=== PATIENT | female | born 1975 ===

== ENCOUNTER → 2020-10-22 11:09 | Outpatient (BNVA) | payer OTHER, SELFPAY | PROVIDERS: Visit Provider Internal Medicine Gastroenterology | DX: Z13.89 Encounter for screening for other disorder (principal) | CPT/HCPCS: Q3014 ==

== ENCOUNTER 2021-01-29 10:45 | Outpatient (REF) | payer OTHER, SELFPAY ==
[2021-01-29 11:37] LABS: MANUAL DIFF FLAG NO
[2021-01-29 12:05] LABS: Basophils Absolute Auto 0.1 X10*3/uL (0.0-0.2); Basophils Percent Auto 0.9 % (0-2); Eosinophils Absolute Auto 0.1 X10*3/uL (0.0-0.4); Eosinophils Percent Auto 0.8 % (0-4); Hematocrit 38.3 % (37-47); Hemoglobin 12.5 g/dl (12.0-16.0); Imm Gran Abs Auto 0.04 X10*3/uL (0.00-0.03); Imm Gran Pct Auto 0.4 % (0.0-0.4); Lymphocytes Absolute Auto 2.6 X10*3/uL (1.2-4.9); Lymphocytes Percent Auto 28.2 % (20-40); Mean Corpuscular HGB Conc 32.6 g/dl (31.0-35.0); Mean Corpuscular Hemoglobin 27.9 pg (27.0-33.0); Mean Corpuscular Volume 85.5 fL (80-98); Mean Platelet Volume 11.6 fL (9.4-12.3); Monocytes Absolute Auto 0.6 X10*3/uL (0.1-1.2); Monocytes Percent Auto 6.1 % (2-11); Neutrophils Absolute Auto 5.9 X10*3/uL (2.0-8.3); Neutrophils Percent Auto 63.6 % (45-73); Platelet Count 403 X10*3/uL (160-400); Red Blood Count 4.48 X10*6/uL (4.20-5.50); Red Cell Distribution Width 14.6 % (11.0-16.0); White Blood Count 9.3 X10*3/uL (4.8-10.8)
[2021-01-29 12:25] LABS: Alanine Aminotransferase 24 U/L (0-31); Albumin Level 4.5 g/dL (3.5-5.0); Alkaline Phosphatase 124 U/L (39-117); Anion Gap 19 (12-20); Aspartate Amino Transferase 29 U/L (5-31); Bilirubin Total 0.6 mg/dL (0.0-1.0); Blood Urea Nitrogen 6 mg/dL (9-16); C Reactive Protein 0.67 mg/dL (< or = 0.50); Calcium 9.7 mg/dL (8.4-10.2); Carbon Dioxide 19 mmol/L (22-29); Chloride 106 mmol/L (96-108); Estimated Glomerular Filt Rate 55; Glucose Random 102 mg/dL (60-115); Potassium 3.6 mmol/L (3.3-5.1); Sodium 140 mmol/L (135-145); Total Protein 8.2 g/dL (6.5-8.0)
[2021-02-01 13:21] LABS: TS Negative Control Passed; TS Panel A 1; TS Panel B 0; TS Positive Control Passed; TSpotTB Negative (SeeBelow)
== END 2021-01-29 10:46 | disposition home or self-care (01) ==
LOC: HO.LAB 10:45
PROVIDERS: PCP Internal Medicine; Visit Provider Internal Medicine Gastroenterology
DX: K50.90 Crohn's disease, unspecified, without complications (principal)
CPT/HCPCS: 36415; 80053; 85025; 86140; 86481

== ENCOUNTER → 2021-03-12 09:03 | Outpatient (BNVA) | payer OTHER, SELFPAY | PROVIDERS: PCP Internal Medicine; Visit Provider Internal Medicine Gastroenterology | CPT/HCPCS: Q3014 ==

== ENCOUNTER 2021-04-30 09:04 | Outpatient (REF) | payer OTHER, SELFPAY | END 2021-04-30 09:05 | disposition home or self-care (01) | LOC: HO.CT 09:04 | PROVIDERS: PCP Internal Medicine; Visit Provider Internal Medicine Gastroenterology | DX: Z13.89 Encounter for screening for other disorder (principal) ==

== ENCOUNTER 2021-05-06 12:58 | Outpatient (REF) | payer OTHER, SELFPAY ==
--- NOTE | ~2021-05-06 | CT_ITS ---
EXAMINATION: CT ENTEROGRAPHY ABDOMEN AND PELVIS WITH CONTRAST CLINICAL INFORMATION: Periumbilical pain. COMPARISON: None TECHNIQUE: Study performed with oral VoLumen (1350 mL) and 480 mL of water to distend the abdomen. The patient was injected with 85 mL Omnipaque 350 intravenous contrast which was administered without adverse effect. Coronal and sagittal reformatted images were obtained at the technologist's workstation. This CT examination was performed using dose optimization techniques as appropriate, variously including the following: *Automated exposure control *Adjustment of mA and/or kV according to patient size (this includes techniques or standardized protocols for targeted exams where dose is matched to indication/reason for exam; i.e. extremities or head) *Use of iterative reconstruction technique DLP: 405 mGy-cm FINDINGS: GASTROINTESTINAL FINDINGS: Stomach: Well-distended and normal in appearance. Small intestine: Satisfactorily distended and normal in appearance. Large intestine: There is question of mild wall thickening of the colon, particularly the transverse colon and left colon. Large bowel is otherwise unremarkable. No perirectal changes demonstrated. The appendix is normal. Additional findings: No abnormal enhancement of the vasa recta or significant mesenteric or retroperitoneal lymphadenopathy is seen. No abdominal abscess or fistulous tract demonstrated. ABDOMINAL AND PELVIC CT FINDINGS: Liver, gallbladder, biliary tract: There are small calcifications in the central liver. The liver is otherwise normal appearing. The gallbladder has been removed. There is no biliary duct dilatation. Pancreas: Normal. Spleen: Normal. Adrenal glands and kidneys: The adrenal glands are normal. There is cortical thinning or scarring in the upper pole of the left kidney. The kidneys are otherwise normal. Ureters and bladder: Normal. Uterus and adnexa: Normal. Lymphovascular structures: Normal. Bones: Normal. Lung bases: Normal. CT/CT enterography IMPRESSION: Question mild colitis of the colon, particularly the transverse colon and left colon. Cortical thinning or scarring in the upper pole of the left kidney. Post cholecystectomy. Normal appendix.
[2021-05-06] MEDS: iohexoL 350 MG/ML 100 ML INFUS..BTL IV (15:38)
[2021-05-06] MEDS: Sorbitol/Mannit/Xanth Imaging 500 ML LIQUID 1500 ML PO (15:39)
== END 2021-05-06 12:59 | disposition home or self-care (01) ==
LOC: HO.US 12:58
PROVIDERS: Visit Provider Internal Medicine Gastroenterology
DX: R10.33 Periumbilical pain (principal)
CPT/HCPCS: 74177; Q9967

== ENCOUNTER → 2021-05-07 11:21 | Outpatient (BNVA) | payer OTHER, SELFPAY | PROVIDERS: PCP Internal Medicine; Visit Provider Internal Medicine Gastroenterology | DX: K50.90 Crohn's disease, unspecified, without complications (principal); R63.4 Abnormal weight loss | CPT/HCPCS: 99212 ==

== ENCOUNTER 2021-06-05 11:15 | Outpatient (REF) | payer OTHER, SELFPAY | END 2021-06-05 11:16 | disposition home or self-care (01) | LOC: HO.MDS 11:15 | PROVIDERS: PCP Internal Medicine; Visit Provider Internal Medicine Gastroenterology | DX: K50.90 Crohn's disease, unspecified, without complications (principal) | CPT/HCPCS: 96365; J3380 ==

== ENCOUNTER 2021-06-21 07:47 | Outpatient (REF) | payer OTHER, SELFPAY | END 2021-06-21 07:48 | disposition home or self-care (01) | LOC: HO.MDS 07:47 | PROVIDERS: PCP Internal Medicine; Visit Provider Thoracic Surgery (Cardiothoracic Vascular Surgery) | DX: K51.50 Left sided colitis without complications (principal) | CPT/HCPCS: 96365; J3380 ==

== ENCOUNTER → 2021-07-09 13:06 | Outpatient (BNVA) | payer OTHER, SELFPAY | PROVIDERS: PCP Internal Medicine; Visit Provider Internal Medicine Gastroenterology | DX: K50.90 Crohn's disease, unspecified, without complications (principal) | CPT/HCPCS: Q3014 ==

== ENCOUNTER → 2021-10-11 11:27 | Outpatient (BNVA) | payer OTHER, SELFPAY | PROVIDERS: PCP Internal Medicine; Visit Provider Internal Medicine Gastroenterology | CPT/HCPCS: Q3014 ==

== ENCOUNTER 2022-06-17 12:28 | Outpatient (REF) | payer OTHER, SELFPAY ==
[2022-06-17 13:07] LABS: MANUAL DIFF FLAG NO
[2022-06-17 13:31] LABS: Basophils Absolute Auto 0.1 X10*3/uL (0.0-0.2); Basophils Percent Auto 1.1 % (0-2); Eosinophils Absolute Auto 0.1 X10*3/uL (0.0-0.4); Eosinophils Percent Auto 2.2 % (0-4); Hematocrit 29.6 % (37.0-47.0); Hemoglobin 9.1 g/dl (12.0-16.0); Imm Gran Abs Auto 0.01 X10*3/uL (0.00-0.03); Imm Gran Pct Auto 0.2 % (0.0-0.4); Lymphocytes Percent Auto 44.4 % (20-40); Mean Corpuscular HGB Conc 30.7 g/dl (31.0-35.0); Mean Corpuscular Hemoglobin 24.5 pg (27.0-33.0); Mean Corpuscular Volume 79.6 fL (80.0-98.0); Mean Platelet Volume 11.5 fL (9.4-12.3); Monocytes Absolute Auto 0.3 X10*3/uL (0.1-1.2); Monocytes Percent Auto 7.1 % (2-11); Platelet Count 309 X10*3/uL (160-400); Red Blood Count 3.72 X10*6/uL (4.20-5.50); Red Cell Distribution Width 16.1 % (11.0-16.0); White Blood Count 4.5 X10*3/uL (4.8-10.8)
[2022-06-17 13:37] LABS: Appearance Urine HAZY; Color Urine YELLOW; Glucose Urine UA NEG (NEG); Leukocyte Esterase Urine NEG (NEG); Nitrite Urine NEG (NEG); PH 6.5 (5.0-8.0); Specific Gravity - Urine 1.015 (1.005-1.025); UACC Culture Trigger NO; Urine Blood TRACE (NEG); Urine Ketones NEG (NEG); Urine Protein NEG (NEG-TRACE)
[2022-06-17 13:45] LABS: INTERNATIONAL NORM RATIO 1.6 (0.9-1.1); Prothrombin Time 18.8 SEC (10.0-13.1)
[2022-06-17 14:09] LABS: Alanine Aminotransferase 8 U/L (0-31); Albumin Level 3.8 g/dL (3.5-5.0); Alkaline Phosphatase 109 U/L (39-117); Anion Gap 11 (12-20); Aspartate Amino Transferase 12 U/L (5-31); Bilirubin Total 0.2 mg/dL (0.0-1.0); Blood Urea Nitrogen 9 mg/dL (9-16); C Reactive Protein 0.18 mg/dL (< or = 0.50); Calcium 8.5 mg/dL (8.4-10.2); Carbon Dioxide 22 mmol/L (22-29); Chloride 108 mmol/L (96-108); Estimated Glomerular Filt Rate 57; Glucose Random 117 mg/dL (60-115); Iron 23 mcg/dL (30-160); Percent Iron Saturation 6 % (15-50); Potassium 3.8 mmol/L (3.3-5.1); Sodium 137 mmol/L (135-145); Total Iron Binding Capacity 370 mcg/dL (228-428); Total Protein 6.6 g/dL (6.5-8.0); Unsaturated Iron Binding 347 ug/dL
[2022-06-17 14:15] LABS: Squamous Epithelial Cell Urine 3+ /LPF; WBC Urine 0 /HPF (0-4)
[2022-06-17 14:15] LABS: Ferritin 4 ng/mL (10-250)
[2022-06-17 14:33] LABS: Folate 7.1 ng/mL (> or = 4.0); Vitamin B12 188 pg/mL (200-900)
[2022-06-19 22:32] LABS: TS Negative Control Passed; TS Panel A 0; TS Panel B 0; TS Positive Control Passed; TSpotTB Negative (Negative)
[2022-06-20 17:07] LABS: Vitamin C 0.1 mg/dL (0.3-2.7)
[2022-06-22 17:28] LABS: Vitamin A 33 mcg/dL (38-98)
== END 2022-06-17 12:29 | disposition home or self-care (01) ==
LOC: HO.LAB 12:28
PROVIDERS: PCP Internal Medicine; Visit Provider Internal Medicine Gastroenterology
DX: Z11.1 Encounter for screening for respiratory tuberculosis (principal); K50.90 Crohn's disease, unspecified, without complications; K75.81 Nonalcoholic steatohepatitis (NASH)
CPT/HCPCS: 36415; 80053; 81001; 82180; 82607; 82728; 82746; 83540; 84590; 85025; 85610; 86140; 86481

== ENCOUNTER → 2022-06-20 12:25 | Outpatient (BNVA) | payer OTHER, SELFPAY | PROVIDERS: PCP Internal Medicine; Visit Provider Internal Medicine Gastroenterology | DX: K50.90 Crohn's disease, unspecified, without complications (principal); D64.9 Anemia, unspecified | CPT/HCPCS: 99212 ==

== ENCOUNTER 2022-07-31 08:52 | Outpatient (REF) | payer OTHER, SELFPAY ==
--- NOTE | ~2022-07-31 | MR_ITS ---
EXAMINATION: MRI ABDOMEN AND PELVIS WITH AND WITHOUT CONTRAST: MR ENTEROGRAPHY CLINICAL INFORMATION: Crohn's disease. Patient states abdominal pain and symptoms for 3-4 months. COMPARISON: CT 05/06/2021. MRI 03/01/2020 TECHNIQUE: 1350 mL Breeza PO contrast prior to scanning. Then, multiple routine MRI sequences through the abdomen and pelvis were obtained on a high-field 1.5 Ivy MRI before and after the uneventful administration of 8.5 mL of Gadavist gadolinium-based IV contrast. FINDINGS: STOMACH: Contrast. No abnormal wall thickening or hyperenhancement. SMALL BOWEL: There is adequate distention of the small bowel. No abnormal dilation. No areas of fixed narrowing or stricture seen. No abnormal wall thickening or hyperenhancement present. No prominence of the vasa recta. No inflammatory changes in the mesentery. No evidence of interloop abscess or fistula. COLON: Precontrast T1 bright stool seen throughout the colon. This limits evaluation for subtle mucosal abnormalities but there is no colonic wall thickening or mucosal hyperenhancement to suggest colitis. LUNG BASES: No pleural effusion. No pericardial effusion. Normal heart size. LIVER: Liver enhances normally. No focal lesion seen. Hepatic and portal veins enhance normally. GALL BLADDER AND BILIARY TREE: Gallbladder not seen presumably surgically absent. No biliary ductal dilatation. SPLEEN: Normal. Normal size. No focal lesion. PANCREAS: Normal. ADRENAL GLANDS: Normal. No adrenal mass. KIDNEYS AND URETERS: There is some atrophy and cortical thinning of the medial aspect of the upper pole of the left kidney similar to prior studies. Otherwise symmetric bilateral renal enhancement. No hydronephrosis or mass. LYMPHOVASCULAR STRUCTURES: Normal caliber aorta. IVC patent. No pathologically enlarged abdominal or retroperitoneal lymphadenopathy by CT size criteria PELVIS: Anteverted uterus. Normal thickness of the endometrial stripe. No leiomyomata seen. Cervix normal in appearance. Normal-appearing ovaries bilaterally. No adnexal mass. OSSEOUS STRUCTURES: Mild lumbar rotoscoliosis and multilevel degenerative changes but no acute or suspicious osseous abnormality. MR/MR abdomen wo/w con IMPRESSION: No abnormal bowel wall thickening or enhancement seen to suggest active inflammatory bowel disease.
== END 2022-07-31 08:53 | disposition home or self-care (01) ==
LOC: HO.MRI 08:52
PROVIDERS: Visit Provider Internal Medicine Gastroenterology
DX: K50.90 Crohn's disease, unspecified, without complications (principal)
CPT/HCPCS: 72197; 74183; A9585

== ENCOUNTER 2023-01-01 18:37 | Emergency (ER) | payer OTHER, SELFPAY ==
--- NOTE | ~2023-01-01 | CT_ITS ---
EXAMINATION: CT head/brain wo IV con CLINICAL INFORMATION: dizziness, headache, weak, hx CVA, on Xarelto COMPARISON: None. TECHNIQUE: Contiguous axial imaging was performed from the skull base to vertex without intravenous contrast. Sagittal and coronal reformatted images were obtained. This CT examination was performed using dose optimization techniques as appropriate, variously including the following: * Automated exposure control * Adjustment of mA and/or kV according to patient size (this includes techniques or standardized protocols for targeted exams where dose is matched to indication/reason for exam; i.e. extremities or head) Use of iterative reconstruction technique DLP: 644.53 mGy-cm mGy-cm FINDINGS: The ventricles and sulci are normal in size and configuration without significant volume loss or hydrocephalus. Age indeterminate though chronic appearing wedge shaped cortical/subcortical infarct in the right parietotemporal lobe. No acute intracranial hemorrhage or extra-axial fluid collection. No mass lesion, significant mass effect, or herniation pattern. The orbits are grossly normal. Mucous retention cyst in the left maxillary sinus and trace mucosal disease in the right maxillary sinus. Osseous structures are intact. 5 mm benign calcified lesion within the high right frontal scalp, likely a sebaceous versus trichilemmal cyst. CT/CT head/brain wo IV con IMPRESSION: Age indeterminate though chronic appearing wedge shaped cortical/subcortical infarct in the right parietotemporal lobe. No calvarial fracture or intracranial hemorrhage.
--- NOTE | ~2023-01-01 | XR_ITS ---
EXAMINATION: XR CHEST CLINICAL INFORMATION: Chest pain COMPARISON: Previous chest x-ray March 2019 TECHNIQUE: 2 views of the chest were obtained. FINDINGS: No significant abnormality is noted involving the heart, lungs, mediastinum, bony thorax or soft tissues. XR/XR chest 2V IMPRESSION: Unremarkable examination.
--- NOTE | 2023-01-01 18:40 | ECG_ITS ---
Test Reason : CHEST PAIN Blood Pressure : / mmHG Vent. Rate : 088 BPM Atrial Rate : 088 BPM P-R Int : 160 ms QRS Dur : 082 ms QT Int : 390 ms P-R-T Axes : 035 027 031 degrees QTc Int : 471 ms Normal sinus rhythm Normal ECG When compared with ECG of 10-MAR-2019 11:14, No significant change was found Referred By: Johanny Emery Electronically Signed By:RADHA GOMEZ
--- NOTE | 2023-01-01 18:55 | ED_ITS ---
HPI - Chest Pain General Chief Complaint: Neuro Symptoms/Deficit <Johanny Emery CNP - Last Filed: 01/01/23 20:11> Stated Complaint: chest pain,blurred vision right sided weakness <Johanny Emery CNP - Last Filed: 01/01/23 20:11> Time Seen by Provider: 01/01/23 21:06 <Johanny Emery CNP - Last Filed: 01/01/23 20:11> Source: patient <Alex Branham MD - Last Filed: 01/01/23 22:41> Mode of arrival: ambulatory <Alex Branham MD - Last Filed: 01/01/23 22:41> Limitations: no limitations <Alex Branham MD - Last Filed: 01/01/23 22:41> History of Present Illness HPI narrative: Patient is a 47-year-old female with reported past medical history of crohns, anemia, pulmonary embolism, CVA, she is currently anticoagulated with Xarelto. Reports since 1429 she is experiencing left anterior Chest pain, intermittent and sharp, present currently, left arm pain shoulder to fingers, dizziness; room spinning sensation, posterior headache, generalized weakness multiple complaints at this time patient is comfortable patient was triaged and labs were done prior to my evaluation head CT scan was negative for acute tropon in and EKG were normal pain is sharp in character increases in taking deep breaths and movements. <Alex Branham MD - Last Filed: 01/01/23 22:41> Related Data Home Medications: Home Medications Medication Instructions Recorded Confirmed amlodipine 5 mg tablet 5 mg PO DAILY 03/12/21 aspirin 81 mg tablet,delayed 81 mg PO DAILY 03/12/21 09/12/22 release atorvastatin 40 mg tablet 40 mg PO BEDTIME 03/12/21 09/12/22 bupropion HCl 100 mg tablet,12 hr 100 mg PO QAM 03/12/21 09/12/22 sustained-release clonazepam 1 mg tablet 1 mg PO BEDTIME PRN Anxiety 03/12/21 09/12/22 lamotrigine 150 mg tablet 150 mg PO DAILY 03/12/21 09/12/22 lamotrigine 200 mg tablet 200 mg PO DAILY 03/12/21 09/12/22 loperamide 2 mg capsule 0 mg PO 03/12/21 tizanidine 4 mg tablet 0 mg PO 03/12/21 gabapentin 600 mg tablet 600 mg PO TID 05/07/21 09/12/22 rivaroxaban 20 mg tablet 20 mg PO BEDTIME 05/07/21 09/12/22 topiramate 50 mg tablet 50 mg PO DAILY 05/07/21 09/12/22 duloxetine 30 mg capsule,delayed 30 mg PO BID 10/11/21 release cariprazine 4.5 mg capsule 4.5 mg PO DAILY 06/20/22 09/12/22 (Vraylar) duloxetine 60 mg capsule,delayed mg PO 06/20/22 release ferrous sulfate 325 mg (65 mg 325 mg PO DAILY 06/20/22 09/12/22 iron) tablet,delayed release ubrogepant 100 mg tablet (Ubrelvy) 0 mg PO 06/20/22 Previous Rx's Medication Instructions Recorded dicyclomine 10 mg capsule 10 mg PO TID 30 days #90 caps 03/08/21 ondansetron 4 mg disintegrating 4 mg PO Q8H PRN nausea and 04/05/21 tablet vomiting #30 tabs budesonide 3 mg 9 mg PO DAILY #90 ea 05/07/21 capsule,delayed,extended release cholestyramine-aspartame 4 gram 1 ea PO Q8H #60 ea 05/22/21 oral powder for susp in a packet (Cholestyramine Light) polyethylene glycol 3350 17 238 g PO ONCE #238 grams 06/20/22 gram/dose oral powder (Miralax) omeprazole 40 mg capsule,delayed 40 mg PO DAILY #30 caps 11/12/22 release tramadol 50 mg tablet 50 mg PO Q6H PRN pain #20 tabs 01/01/23 <Johanny Emery CNP - Last Filed: 01/01/23 20:11> Allergies/Adverse Reactions: Allergies Allergy/AdvReac Type Severity Reaction Status Date / Time apixaban [From Eliquis] Allergy Itching Verified 09/12/22 15:50 <Johanny Emery CNP - Last Filed: 01/01/23 20:11> Review of Systems Review of Systems: Yes all other systems are reviewed and are negative <Alex Branham MD - Last Filed: 01/01/23 22:41> [facility] Past Medical History Medical History: Medical History Anxiety Bipolar disorder Chronic depression Fibromyalgia H/O blood clots H/O stroke within last year HTN (hypertension) IBS (irritable bowel syndrome) LOC (loss of consciousness) Migraine On anticoagulant therapy KAYODE (obstructive sleep apnea) Vitamin D deficiency <Johanny Emery CNP - Last Filed: 01/01/23 20:11> Surgical History: Surgical History History of History of colonoscopy Hx of cholecystectomy Hx of endoscopy Hx of tubal ligation <Johanny Emery CNP - Last Filed: 01/01/23 20:11> Family History Family History: Family History Father Hx of type 1 diabetes mellitus History of high cholesterol Mother Family history of high blood pressure <Johanny Emery CNP - Last Filed: 01/01/23 20:11> Social History Social History: Social History Household Members: None Alcohol intake: never Advance Directives: No Advance Directives Information Provided: No Current occupational status: disabled <Johanny Emery CNP - Last Filed: 01/01/23 20:11> Physical Exam Vital Signs: Vital Signs: Last Vital Signs Temp 98 F 01/01/23 18:56 Pulse 85 01/01/23 18:56 Resp 16 01/01/23 18:56 BP 142/86 H 01/01/23 18:56 Pulse Ox 100 01/01/23 18:56 O2 Del Method 01/01/23 18:56 BMI result Body Mass Index 40.6 <Johanny Emery CNP - Last Filed: 01/01/23 20:11> Vital Signs: Last Vital Signs Temp 98 F 01/01/23 18:56 Pulse 85 01/01/23 18:56 Resp 16 01/01/23 18:56 BP 142/86 H 01/01/23 18:56 Pulse Ox 100 01/01/23 18:56 O2 Del Method 01/01/23 18:56 BMI result Body Mass Index 40.6 <Alex Branham MD - Last Filed: 01/01/23 22:41> Appearance: Alert. Oriented X3. No acute distress. Eyes: PERRLA, No Nystagmus ENT: Pharynx normal. Oral Mucosa moist Neck: Normal inspection. Neck supple. CVS: Normal heart rate and rhythm. Pulses normal. Chest wall tenderness+ Respiratory: No respiratory distress. Equal air entry bilateral, no wheezing/rales/rhonchi Abdomen: Soft and nontender. Bowel sounds are present, no mass palpable, no CVA tenderness Skin: Skin warm and dry. Normal skin color. Normal skin turgor. back: Diffuse tenderness in the upper back muscles Extremities: No lower extremity edema. No calf tenderness Neuro: Oriented X 3. No motor deficit. No sensory deficit.No cerebellar signs , cranial nerves II-XII intact <Alex Branham MD - Last Filed: 01/01/23 22:41> Course Course Course Narrative: This is an RME: Additional HPI, ROS, PE not included below will be deferred to primary provider. Patient is a 47-year-old female with reported past medical history of crohns, anemia, pulmonary embolism, CVA, she is curr ently anticoagulated with Xarelto. Reports since 0 she is experiencing left anterior Chest pain, intermittent and sharp, present currently, left arm pain shoulder to fingers, dizziness; room spinning sensation, posterior headache, generalized weakness. Pe: No focal neurological deficits, sitting in wheelchair. Plan: labs, EKG, CXR CT head w/o contrast, viral testing 20:10 review of findings, CT revealing age indeterminate though chronic appearing wedge-shaped cortical/subcortical infarct in the right parietal temporal lobe. I spoke with charge nurse, patient to be brought back to main ED for further evaluation/treatment. ED attending, Dr. Campuzano made aware of patient and findings <Johanny Emery CNP - Last Filed: 01/01/23 20:11> Medications Administered Discontinued Medications Generic Name Dose Route Start Last Admin Trade Name Freq PRN Reason Stop Dose Admin Tramadol HCl 50 mg 01/01/23 21:23 01/01/23 21:40 Tramadol Hcl 50 Mg Tablet PO 01/01/23 21:24 50 mg ONCE ONE Administration <Johanny Emery CNP - Last Filed: 01/01/23 20:11> Medications Administered Discontinued Medications Generic Name Dose Route Start Last Admin Trade Name Radha PRN Reason Stop Dose Admin Tramadol HCl 50 mg 01/01/23 21:23 01/01/23 21:40 Tramadol Hcl 50 Mg Tablet PO 01/01/23 21:24 50 mg ONCE ONE Administration <Alex Branham MD - Last Filed: 01/01/23 22:41> Medical Decision Making Medical Decision Making [facility] Narrative: Patient with history of fibromyalgia came with atypical chest pain 2 sets of troponin negative normal EKG discharge patient home on tramadol <Alex Branham MD - Last Filed: 01/01/23 22:41> Lab Data [facility] Lab Attestation statement: I reviewed the patient's lab results. <Alex Branham MD - Last Filed: 01/01/23 22:41> Result Diagrams: 01/01/23 19:09 01/01/23 19:09 <Johanny Emery CNP - Last Filed: 01/01/23 20:11> Labs: Lab Results 01/01/23 01/01/23 01/01/23 Range/Units 19:09 19:09 19:09 WBC 5.8 (4.8-10.8) X10*3/uL RBC 3.99 L (4.20-5.50) X10*6/uL Hgb 8.9 L (12.0-16.0) g/dl Hct 29.6 L (37.0-47.0) % MCV 74.2 L (80.0-98.0) fL MCH 22.3 L (27.0-33.0) pg MCHC 30.1 L (31.0-35.0) g/dl RDW 17.4 H (11.0-16.0) % Plt Count 316 (160-400) X10*3/uL MPV 10.9 (9.4-12.3) fL Immature Gran % (Auto) 0.2 (0.0-0.4) % Neut % (Auto) 39.9 L (45-73) % Lymph % (Auto) 48.9 H (20-40) % [place] % (Auto) 7.3 (2-11) % Eos % (Auto) 2.3 (0-4) % Baso % (Auto) 1.4 (0-2) % Lymph # (Auto) 2.8 (1.2-4.9) X10*3/uL [place] # (Auto) 0.4 (0.1-1.2) X10*3/uL Eos # (Auto) 0.1 (0.0-0.4) X10*3/uL Baso # (Auto) 0.1 (0.0-0.2) X10*3/uL Abs Immat Gran (auto) 0.01 (0.00-0.03) X10*3/uL Absolute Neuts (auto) 2.3 (2.0-8.3) x10*3/uL Absolute Nucleated RBC 0.000 (0.0-0.012) X10*3/uL Nucleated RBC % (auto) 0.0 (0.0-0.2) /100WBC PT 11.3 (10.0-13.1) SEC INR 1.0 (0.9-1.1) D-Dimer High Sensitivty 253 NG/ML Sodium 140 (135-145) mmol/L Potassium 4.2 (3.3-5.1) mmol/L Chloride 109 H (96-108) mmol/L Carbon Dioxide 25 (22-29) mmol/L Anion Gap 10 L (12-20) BUN 15 (9-16) mg/dL Creatinine 0.93 (0.5-1.4) mg/dL Estim Creat Clear Calc 72.8 Estimated GFR > 60 Random Glucose 104 (60-115) mg/dL Calcium 9.2 D (8.4-10.2) mg/dL Magnesium 1.9 (1.6-2.6) mg/dL Total Bilirubin 0.2 (0.0-1.0) mg/dL AST 14 (5-31) U/L ALT 13 (0-31) U/L Alkaline Phosphatase 100 (39-117) U/L Troponin I High Sens (<3.5-17.0) ng/L Total Protein 6.8 (6.5-8.0) g/dL Albumin 3.8 (3.5-5.0) g/dL COVID-19 ([place]) (Negative) COVID-19 Clin Com Influenza Type A ([place]) (Negative) Influenza Type B ([place]) (Negative) Influenza A & B Note 01/01/23 01/01/23 01/01/23 Range/Units 19:09 19:09 19:09 WBC (4.8-10.8) X10*3/uL RBC (4.20-5.50) X10*6/uL Hgb (12.0-16.0) g/dl Hct (37.0-47.0) % MCV (80.0-98.0) fL MCH (27.0-33.0) pg MCHC (31.0-35.0) g/dl RDW (11.0-16.0) % Plt Count (160-400) X10*3/uL MPV (9.4-12.3) fL Immature Gran % (Auto) (0.0-0.4) % Neut % (Auto) (45-73) % Lymph % (Auto) (20-40) % [place] % (Auto) (2-11) % Eos % (Auto) (0-4) % Baso % (Auto) (0-2) % Lymph # (Auto) (1.2-4.9) X10*3/uL [place] # (Auto) (0.1-1.2) X10*3/uL Eos # (Auto) (0.0-0.4) X10*3/uL Baso # (Auto) (0.0-0.2) X10*3/uL Abs Immat Gran (auto) (0.00-0.03) X10*3/uL Absolute Neuts (auto) (2.0-8.3) x10*3/uL Absolute Nucleated RBC (0.0-0.012) X10*3/uL Nucleated RBC % (auto) (0.0-0.2) /100WBC PT (10.0-13.1) SEC INR (0.9-1.1) D-Dimer High Sensitivty NG/ML Sodium (135-145) mmol/L Potassium (3.3-5.1) mmol/L Chloride (96-108) mmol/L Carbon Dioxide (22-29) mmol/L Anion Gap (12-20) BUN (9-16) mg/dL Creatinine (0.5-1.4) mg/dL Estim Creat Clear Calc Estimated GFR Random Glucose (60-115) mg/dL Calcium (8.4-10.2) mg/dL Magnesium (1.6-2.6) mg/dL Total Bilirubin (0.0-1.0) mg/dL AST (5-31) U/L ALT (0-31) U/L Alkaline Phosphatase (39-117) U/L Troponin I High Sens < 3.5 (<3.5-17.0) ng/L Total Protein (6.5-8.0) g/dL Albumin (3.5-5.0) g/dL COVID-19 ([place]) Negative (Negative) COVID-19 Clin Com See Note Influenza Type A ([place]) Negative (Negative) Influenza Type B ([place]) Negative (Negative) Influenza A & B Note See Note 01/01/23 Range/Units 21:47 WBC (4.8-10.8) X10*3/uL RBC (4.20-5.50) X10*6/uL Hgb (12.0-16.0) g/dl Hct (37.0-47.0) % MCV (80.0-98.0) fL MCH (27.0-33.0) pg MCHC (31.0-35.0) g/dl RDW (11.0-16.0) % Plt Count (160-400) X10*3/uL MPV (9.4-12.3) fL Immature Gran % (Auto) (0.0-0.4) % Neut % (Auto) (45-73) % Lymph % (Auto) (20-40) % [place] % (Auto) (2-11) % Eos % (Auto) (0-4) % Baso % (Auto) (0-2) % Lymph # (Auto) (1.2-4.9) X10*3/uL [place] # (Auto) (0.1-1.2) X10*3/uL Eos # (Auto) (0.0-0.4) X10*3/uL Baso # (Auto) (0.0-0.2) X10*3/uL Abs Immat Gran (auto) (0.00-0.03) X10*3/uL Absolute Neuts (auto) (2.0-8.3) x10*3/uL Absolute Nucleated RBC (0.0-0.012) X10*3/uL Nucleated RBC % (auto) (0.0-0.2) /100WBC PT (10.0-13.1) SEC INR (0.9-1.1) D-Dimer High Sensitivty NG/ML Sodium (135-145) mmol/L Potassium (3.3-5.1) mmol/L Chloride (96-108) mmol/L Carbon Dioxide (22-29) mmol/L Anion Gap (12-20) BUN (9-16) mg/dL Creatinine (0.5-1.4) mg/dL Estim Creat Clear Calc Estimated GFR Random Glucose (60-115) mg/dL Calcium (8.4-10.2) mg/dL Magnesium (1.6-2.6) mg/dL Total Bilirubin (0.0-1.0) mg/dL AST (5-31) U/L ALT (0-31) U/L Alkaline Phosphatase (39-117) U/L Troponin I High Sens < 3.5 (<3.5-17.0) ng/L Total Protein (6.5-8.0) g/dL Albumin (3.5-5.0) g/dL COVID-19 ([place]) (Negative) COVID-19 Clin Com Influenza Type A ([place]) (Negative) Influenza Type B ([place]) (Negative) Influenza A & B Note <Johanny Emery CNP - Last Filed: 01/01/23 20:11> Lab Results 01/01/23 01/01/23 01/01/23 Range/Units 19:09 19:09 19:09 WBC 5.8 (4.8-10.8) X10*3/uL RBC 3.99 L (4.20-5.50) X10*6/uL Hgb 8.9 L (12.0-16.0) g/dl Hct 29.6 L (37.0-47.0) % MCV 74.2 L (80.0-98.0) fL MCH 22.3 L (27.0-33.0) pg MCHC 30.1 L (31.0-35.0) g/dl RDW 17.4 H (11.0-16.0) % Plt Count 316 (160-400) X10*3/uL MPV 10.9 (9.4-12.3) fL Immature Gran % (Auto) 0.2 (0.0-0.4) % Neut % (Auto) 39.9 L (45-73) % Lymph % (Auto) 48.9 H (20-40) % [place] % (Auto) 7.3 (2-11) % Eos % (Auto) 2.3 (0-4) % Baso % (Auto) 1.4 (0-2) % Lymph # (Auto) 2.8 (1.2-4.9) X10*3/uL [place] # (Auto) 0.4 (0.1-1.2) X10*3/uL Eos # (Auto) 0.1 (0.0-0.4) X10*3/uL Baso # (Auto) 0.1 (0.0-0.2) X10*3/uL Abs Immat Gran (auto) 0.01 (0.00-0.03) X10*3/uL Absolute Neuts (auto) 2.3 (2.0-8.3) x10*3/uL Absolute Nucleated RBC 0.000 (0.0-0.012) X10*3/uL Nucleated RBC % (auto) 0.0 (0.0-0.2) /100WBC PT 11.3 (10.0-13.1) SEC INR 1.0 (0.9-1.1) D-Dimer High Sensitivty 253 NG/ML Sodium 140 (135-145) mmol/L Potassium 4.2 (3.3-5.1) mmol/L Chloride 109 H (96-108) mmol/L Carbon Dioxide 25 (22-29) mmol/L Anion Gap 10 L (12-20) BUN 15 (9-16) mg/dL Creatinine 0.93 (0.5-1.4) mg/dL Estim Creat Clear Calc 72.8 Estimated GFR > 60 Random Glucose 104 (60-115) mg/dL Calcium 9.2 D (8.4-10.2) mg/dL Magnesium 1.9 (1.6-2.6) mg/dL Total Bilirubin 0.2 (0.0-1.0) mg/dL AST 14 (5-31) U/L ALT 13 (0-31) U/L Alkaline Phosphatase 100 (39-117) U/L Troponin I High Sens (<3.5-17.0) ng/L Total Protein 6.8 (6.5-8.0) g/dL Albumin 3.8 (3.5-5.0) g/dL COVID-19 ([place]) (Negative) COVID-19 Clin Com Influenza Type A ([place]) (Negative) Influenza Type B ([place]) (Negative) Influenza A & B Note 01/01/23 01/01/23 01/01/23 Range/Units 19:09 19:09 19:09 WBC (4.8-10.8) X10*3/uL RBC (4.20-5.50) X10*6/uL Hgb (12.0-16.0) g/dl Hct (37.0-47.0) % MCV (80.0-98.0) fL MCH (27.0-33.0) pg MCHC (31.0-35.0) g/dl RDW (11.0-16.0) % Plt Count (160-400) X10*3/uL MPV (9.4-12.3) fL Immature Gran % (Auto) (0.0-0.4) % Neut % (Auto) (45-73) % Lymph % (Auto) (20-40) % [place] % (Auto) (2-11) % Eos % (Auto) (0-4) % Baso % (Auto) (0-2) % Lymph # (Auto) (1.2-4.9) X10*3/uL [place] # (Auto) (0.1-1.2) X10*3/uL Eos # (Auto) (0.0-0.4) X10*3/uL Baso # (Auto) (0.0-0.2) X10*3/uL Abs Immat Gran (auto) (0.00-0.03) X10*3/uL Absolute Neuts (auto) (2.0-8.3) x10*3/uL Absolute Nucleated RBC (0.0-0.012) X10*3/uL Nucleated RBC % (auto) (0.0-0.2) /100WBC PT (10.0-13.1) SEC INR (0.9-1.1) D-Dimer High Sensitivty NG/ML Sodium (135-145) mmol/L Potassium (3.3-5.1) mmol/L Chloride (96-108) mmol/L Carbon Dioxide (22-29) mmol/L Anion Gap (12-20) BUN (9-16) mg/dL Creatinine (0.5-1.4) mg/dL Estim Creat Clear Calc Estimated GFR Random Glucose (60-115) mg/dL Calcium (8.4-10.2) mg/dL Magnesium (1.6-2.6) mg/dL Total Bilirubin (0.0-1.0) mg/dL AST (5-31) U/L ALT (0-31) U/L Alkaline Phosphatase (39-117) U/L Troponin I High Sens < 3.5 (<3.5-17.0) ng/L Total Protein (6.5-8.0) g/dL Albumin (3.5-5.0) g/dL COVID-19 ([place]) Negative (Negative) COVID-19 Clin Com See Note Influenza Type A ([place]) Negative (Negative) Influenza Type B ([place]) Negative (Negative) Influenza A & B Note See Note 01/01/23 Range/Units 21:47 WBC (4.8-10.8) X10*3/uL RBC (4.20-5.50) X10*6/uL Hgb (12.0-16.0) g/dl Hct (37.0-47.0) % MCV (80.0-98.0) fL MCH (27.0-33.0) pg MCHC (31.0-35.0) g/dl RDW (11.0-16.0) % Plt Count (160-400) X10*3/uL MPV (9.4-12.3) fL Immature Gran % (Auto) (0.0-0.4) % Neut % (Auto) (45-73) % Lymph % (Auto) (20-40) % [place] % (Auto) (2-11) % Eos % (Auto) (0-4) % Baso % (Auto) (0-2) % Lymph # (Auto) (1.2-4.9) X10*3/uL [place] # (Auto) (0.1-1.2) X10*3/uL Eos # (Auto) (0.0-0.4) X10*3/uL Baso # (Auto) (0.0-0.2) X10*3/uL Abs Immat Gran (auto) (0.00-0.03) X10*3/uL Absolute Neuts (auto) (2.0-8.3) x10*3/uL Absolute Nucleated RBC (0.0-0.012) X10*3/uL Nucleated RBC % (auto) (0.0-0.2) /100WBC PT (10.0-13.1) SEC INR (0.9-1.1) D-Dimer High Sensitivty NG/ML Sodium (135-145) mmol/L Potassium (3.3-5.1) mmol/L Chloride (96-108) mmol/L Carbon Dioxide (22-29) mmol/L Anion Gap (12-20) BUN (9-16) mg/dL Creatinine (0.5-1.4) mg/dL Estim Creat Clear Calc Estimated GFR Random Glucose (60-115) mg/dL Calcium (8.4-10.2) mg/dL Magnesium (1.6-2.6) mg/dL Total Bilirubin (0.0-1.0) mg/dL AST (5-31) U/L ALT (0-31) U/L Alkaline Phosphatase (39-117) U/L Troponin I High Sens < 3.5 (<3.5-17.0) ng/L Total Protein (6.5-8.0) g/dL Albumin (3.5-5.0) g/dL COVID-19 ([place]) (Negative) COVID-19 Clin Com Influenza Type A ([place]) (Negative) Influenza Type B ([place]) (Negative) Influenza A & B Note <Alex Branham MD - Last Filed: 01/01/23 22:41> Independent Interpretation I performed an independent interpretation of an: EKG <Alex Branham MD - Last Filed: 01/01/23 22:41> Interpretation: Normal sinus rhythm heart rate 88 normal interval normal axis no acute ST changes no acute ischemia <Alex Branham MD - Last Filed: 01/01/23 22:41> Discharge Plan Discharge Clinical Impression: Chest pain, Fibromyalgia <Johanny Emery CNP - Last Filed: 01/01/23 20:11> Patient Disposition: Home, Self-Care <Johanny Emery CNP - Last Filed: 01/01/23 20:11> Instructions: Chest Pain (ED), Fibromyalgia (ED) <Johanny Emery CNP - Last Filed: 01/01/23 20:11> Additional Instructions: chest pain does not seem like coming from the heart, your blood test cardiogram chest x-ray normal Take tramadol for pain Follow-up with your it security consulting director/PCP <Johanny Emery CNP - Last Filed: 01/01/23 20:11> Prescriptions: New tramadol 50 mg tablet 50 mg PO Q6H PRN (Reason: pain) Qty: 20 0RF No Action dicyclomine 10 mg capsule 10 mg PO TID 30 Days Qty: 90 4RF ondansetron 4 mg tablet,disintegrating 4 mg PO Q8H PRN (Reason: nausea and vomiting) Qty: 30 1RF cholestyramine-aspartame [Cholestyramine Light] 4 gram powder in packet 1 ea PO Q8H Qty: 60 1RF omeprazole 40 mg capsule,delayed release(DR/EC) 40 mg PO DAILY Qty: 30 3RF Xarelto 20 mg tablet 20 mg PO BEDTIME gabapentin 600 mg tablet 600 mg PO TID topiramate 50 mg tablet 50 mg PO DAILY budesonide 3 mg capsule,delayed,extend.release 9 mg PO DAILY Qty: 90 1RF amlodipine 5 mg tablet 5 mg PO DAILY bupropion HCl 100 mg tablet sustained-release 12 hr 100 mg PO QAM tizanidine 4 mg tablet 0 mg PO atorvastatin 40 mg tablet 40 mg PO BEDTIME loperamide 2 mg capsule 0 mg PO lamotrigine 200 mg tablet 200 mg PO DAILY lamotrigine 150 mg tablet 150 mg PO DAILY clonazepam 1 mg tablet 1 mg PO BEDTIME PRN (Reason: Anxiety) aspirin 81 mg tablet,delayed release (DR/EC) 81 mg PO DAILY duloxetine 30 mg capsule,delayed release(DR/EC) 30 mg PO BID ferrous sulfate 325 mg (65 mg iron) tablet,delayed release (DR/EC) 325 mg PO DAILY Ubrelvy 100 mg tablet 0 mg PO duloxetine 60 mg capsule,delayed release(DR/EC) PO Vraylar 4.5 mg capsule 4.5 mg PO DAILY polyethylene glycol 3350 [Miralax] 17 gram/dose powder 238 g PO ONCE Qty: 238 0RF Rx Instructions: mix the full container with 64 ounces of gatorade for colonoscopy prep the evening before the test and drink <Johanny Emery CNP - Last Filed: 01/01/23 20:11>
[2023-01-01 18:56] VITALS: BP 142/86; PULSE 85; RESP 16; TEMP 36.6; O2SAT 100; BMI 40.6
[2023-01-01 19:18] LABS: MANUAL DIFF FLAG NO
[2023-01-01 19:25] LABS: Basophils Absolute Auto 0.1 X10*3/uL (0.0-0.2); Basophils Percent Auto 1.4 % (0-2); Eosinophils Absolute Auto 0.1 X10*3/uL (0.0-0.4); Eosinophils Percent Auto 2.3 % (0-4); Hematocrit 29.6 % (37.0-47.0); Hemoglobin 8.9 g/dl (12.0-16.0); Imm Gran Abs Auto 0.01 X10*3/uL (0.00-0.03); Imm Gran Pct Auto 0.2 % (0.0-0.4); Lymphocytes Absolute Auto 2.8 X10*3/uL (1.2-4.9); Lymphocytes Percent Auto 48.9 % (20-40); Mean Corpuscular HGB Conc 30.1 g/dl (31.0-35.0); Mean Corpuscular Hemoglobin 22.3 pg (27.0-33.0); Mean Corpuscular Volume 74.2 fL (80.0-98.0); Mean Platelet Volume 10.9 fL (9.4-12.3); Monocytes Absolute Auto 0.4 X10*3/uL (0.1-1.2); Monocytes Percent Auto 7.3 % (2-11); Neutrophils Absolute Auto 2.3 x10*3/uL (2.0-8.3); Neutrophils Percent Auto 39.9 % (45-73); Platelet Count 316 X10*3/uL (160-400); Prothrombin Time 11.3 SEC (10.0-13.1); Red Blood Count 3.99 X10*6/uL (4.20-5.50); Red Cell Distribution Width 17.4 % (11.0-16.0); White Blood Count 5.8 X10*3/uL (4.8-10.8)
[2023-01-01 19:33] LABS: Alanine Aminotransferase 13 U/L (0-31); Albumin Level 3.8 g/dL (3.5-5.0); Alkaline Phosphatase 100 U/L (39-117); Anion Gap 10 (12-20); Aspartate Amino Transferase 14 U/L (5-31); Bilirubin Total 0.2 mg/dL (0.0-1.0); Blood Urea Nitrogen 15 mg/dL (9-16); Calcium 9.2 mg/dL (8.4-10.2); Carbon Dioxide 25 mmol/L (22-29); Chloride 109 mmol/L (96-108); Creatinine Clr Calc Pharmacy 72.8; Estimated Glomerular Filt Rate > 60; Glucose Random 104 mg/dL (60-115); IDNOW Serial# BCCEAD1C; Influenza A Negative (Negative); Influenza B2 Negative (Negative); Magnesium 1.9 mg/dL (1.6-2.6); Potassium 4.2 mmol/L (3.3-5.1); Sodium 140 mmol/L (135-145); Total Protein 6.8 g/dL (6.5-8.0)
[2023-01-01 19:34] LABS: COVID-19 Test Negative (Negative); IDNOW Serial# 16C4AD1C
[2023-01-01 19:47] LABS: Troponin-I High Sensitivity < 3.5 ng/L (<3.5-17.0)
[2023-01-01 21:38] LABS: D Dimer High Sensitivity 253 NG/ML
[2023-01-01] MEDS: traMADoL HCL 50 MG TABLET PO (21:40)
[2023-01-01 22:15] LABS: Troponin-I High Sensitivity < 3.5 ng/L (<3.5-17.0)
== END 2023-01-01 22:59 | disposition home or self-care (01) ==
PROVIDERS: Nurse Practitioner Family; Emergency Provider Internal Medicine; PCP Internal Medicine
DX: R07.9 Chest pain, unspecified (principal); M79.7 Fibromyalgia; Z20.822 Contact with and (suspected) exposure to COVID-19; I10 Essential (primary) hypertension; Z79.82 Long term (current) use of aspirin; Z79.02 Long term (current) use of antithrombotics/antiplatelets; Z86.73 Personal history of transient ischemic attack (TIA), and cerebral infarction without residual deficits; Z79.899 Other long term (current) drug therapy; Z79.01 Long term (current) use of anticoagulants
CPT/HCPCS: 70450; 71046; 80053; 83735; 84484; 85025; 85379; 85610; 87502; 87635; 93005; 99283; 99284

== ENCOUNTER 2023-01-20 07:19 | Day surgery (SDC) | payer OTHER, SELFPAY ==
[2023-01-15 14:16] VITALS: BMI 39.9
--- NOTE | 2023-01-19 09:20 | P.CONAN_ITS ---
HPI - Anesthesia Eval Consult details Narrative: 47yo F for Upper Endoscopy and Colonoscopy Xarelto for hx embolic stroke PMFSH Active Problems Active Problems: All Active Problems (Updated 01/15/23 @ 14:24 by Edie Prince RN) Crohn's disease in remission (Acute) Weight loss (Acute) Crohn's disease (Acute) Past Medical History Medical History (Updated 01/20/23 @ 08:43 by Matilde Narvaez, JACOB) Anxiety Anxiety and depression Bipolar disorder Chronic depression Crohn disease Fibromyalgia H/O blood clots H/O stroke within last year History of CVA (cerebrovascular accident) HTN (hypertension) IBS (irritable bowel syndrome) LOC (loss of consciousness) Migraine On anticoagulant therapy KAYODE (obstructive sleep apnea) Vitamin D deficiency Family History Family History Father Hx of type 1 diabetes mellitus History of high cholesterol Mother Family history of high blood pressure Surgical History Surgical History History of History of colonoscopy Hx of cholecystectomy Hx of endoscopy Hx of tubal ligation Social History Social History Household Members: None Household Members Other:: mother Are you a primary reproductive healthcare assistant to a significant other at home: No Do you presently have visiting nurse or other home services: No Alcohol intake: never Patient Tobacco Use Status: Never used Tobacco Current occupational status: disabled Meds Allergies Allergy/AdvReac Type Severity Reaction Status Date / Time apixaban [From Eliquis] Allergy Intermediate Itching, Verified 01/20/23 08:56 rash Home Medications Medication Instructions Recorded Confirmed Last Taken Type amlodipine 5 mg tablet 5 mg PO DAILY 03/12/21 01/15/23 Unknown History aspirin 81 mg tablet,delayed 81 mg PO DAILY 03/12/21 01/20/23 01/17/23 History release clonazepam 1 mg tablet 0.5 mg PO TID PRN Anxiety 03/12/21 01/15/23 Unknown History lamotrigine 150 mg tablet 150 mg PO DAILY@0730 03/12/21 01/15/23 Unknown History lamotrigine 200 mg tablet 200 mg PO BEDTIME 03/12/21 01/15/23 Unknown History loperamide 2 mg capsule 0 mg PO 03/12/21 Unknown History tizanidine 4 mg tablet 4 mg PO TID PRN Pain 03/12/21 01/15/23 Unknown History rivaroxaban 20 mg tablet 20 mg PO BEDTIME 05/07/21 01/20/23 01/15/23 History topiramate 50 mg tablet 50 mg PO DAILY 05/07/21 01/15/23 Unknown History duloxetine 60 mg capsule,delayed 60 mg PO BID 06/20/22 01/15/23 Unknown History release ferrous sulfate 325 mg (65 mg 325 mg PO DAILY 06/20/22 01/20/23 01/13/23 History iron) tablet,delayed release ubrogepant 100 mg tablet (Ubrelvy) 100 mg PO PRN Headache 06/20/22 Unknown History quetiapine 400 mg tablet 1 tab PO BEDTIME 01/15/23 01/15/23 Unknown History Exam Exam Date and Time: January 19, 2023 0920 Height,Weight and Vital Signs: Height 4 ft 11 in Weight 89.811 kg Pertinent Lab Results Pertinent Lab Results: Laboratory Tests 01/01/23 01/01/23 19:09 19:09 WBC 5.8 Hgb 8.9 L Hct 29.6 L Plt Count 316 Sodium 140 Potassium 4.2 Chloride 109 H Carbon Dioxide 25 BUN 15 Creatinine 0.93 Assessment and Plan Assessment Anesthesia Assessment: Chart Reviewed
[2023-01-20 08:48] VITALS: BP 134/81; PULSE 79; RESP 16; TEMP 36.6; O2SAT 99
[2023-01-20] MEDS: Lactated Ringers 1,000 ML 100 ML IVCONT (09:14)
--- NOTE | 2023-01-20 10:21 | MHC.SHP ---
Pre-Procedural Eval Section A Date of Service: 01/20/23 Section B Chief Complaint: Benign neoplasm of colon,anemia Relevant Family History (Specify if Yes): No Relevant Social History: None Present Medications: see Short Stay Collaborative assessment Medical History: Significant History (Anxiety Anxiety and depression Bipolar disorder Chronic depression Fibromyalgia H/O blood clots H/O stroke within last year History of CVA (cerebrovascular accident) HTN (hypertension) IBS (irritable bowel syndrome) LOC (loss of consciousness) Migraine On anticoagulant therapy KAYODE (obstructive sleep) History of Previous Operations: Relevant previous surgery/procedure and date(s) (History of History of colonoscopy Hx of cholecystectomy Hx of endoscopy Hx of tubal ligation) Allergies: Allergies Allergy/AdvReac Type Severity Reaction Status Date / Time apixaban [From Eliquis] Allergy Intermediate Itching, Verified 01/20/23 08:56 rash Review of Systems Sugical H&P ROS: Negative: Constitution, Cardiovascular, Respiratory, Neurological, Psychiatric, Hem-Onc, Allergic/Immunologic, Gastrointestinal, Genitourinary, Musculoskeletal, Integumentary, Endocrine and Eyes/Ears/Nose/Throat Exam Surgical H&P Exam: Normal: HEENT, Normal: Heart, Normal: Lungs, Normal: Extremities, Normal: Abdomen, Normal: Skin and Normal: Neurological Plan Diagnosis/Plan: Unchanged I have reviewed the history and physical and performed a pertinent physical examination on my patient. No changes have occurred unless specified. Time Spent With Patient Time: Total time managing care of this patient today ____ minutes.
--- NOTE | 2023-01-20 10:22 | W.PM.OPN ---
Operative Note Operative Note Date of Service: 01/20/23 Narrative: Operative Information Procedure Description: EGD, Colonoscopy Indication: anemia Anesthesia: MAC FLEXIBLE TRANSORAL UPPER GASTROINTESTINAL ENDOSCOPY AND COLONOSCOPY PROCEDURE NOTE UPPER ENDOSCOPY Consent: Indications for the procedure and potential complications of bleeding, perforation, reaction to medications and missed diagnosis were discussed with the patient and informed consent was obtained. Instrument: Olympus GIF H 190 J mid size upper endoscope Monitoring: Vital signs and clinical assessment, continuous EKG monitoring, Pulse oximetry, Carbon Dioxide monitoring and blood pressure monitoring were done throughout the procedure. Procedure: The patient was placed in the left lateral decubitis position and pre-procedure medications were administered and a bite block was placed. The endoscope was inserted into the mouth and advanced under direct vision to the third part of duodenum. A careful inspection was made as the upper endoscope was withdrawn including a retroflexed examination of the proximal stomach; Findings and interventions are described below. Findings: Larynx:normal Esophagus: GE junction at 32 cm, diaphragm hiatus at 34 cm, consistent with 2 cm sliding hiatal hernia, schatzki ring noted, bx taken from GEJ and distal esophagus. LEs was lax. Stomach: Normal mucosa. Biopsies were obtained. Grade 2 flap valve on retroflexed examination of the cardia. Duodenum: Normal bulb and descending duodenum, bx taken Intervention: Biopsies as noted above COLONOSCOPY Instrument: Olympus variable stiffness pediatric scope 190L Colonoscopy Monitoring: Vital signs and clinical assessment, continuous EKG monitoring, Pulse oximetry, Carbon Dioxide monitoring and blood pressure monitoring were done throughout the procedure. Colon withdrawal time was 17 minutes. Procedure: The patient was placed in the left lateral decubitis position and pre-procedure medications were administered. After a digital rectal examination of the ano-rectum, the video colonoscope was inserted into the rectum and advanced through the colon to the cecum/TI. The colonoscope was slowly withdrawn in a retrograde panoramic fashion and the colon mucosa was carefully examined including a retroflexed view of the rectum. Findings and interventions are described below. Procedure Difficulty: moderate due to looping Findings: Terminal Ileum-normal, bx taken random bx taken in separate jars from right, left colon and rectum Cecum:normal Ascending Colon: normal Transverse Colon -normal Descending Colon:normal Sigmoid Colon: normal Rectum: Retroflexion with small internal hemorrhoids, grade I Anorectum - normal Colon preparation: Brisbin Bowel Preparation Scale Right colon; 2 Transverse colon: 2 Left colon; 2 (0 = Unprepared colon segment with mucosa not seen due to solid stool that cannot be cleared. 1 = Portion of mucosa of the colon segment seen, but other areas of the colon segment not well seen due to staining, residual stool and/or opaque liquid. 2 = Minor amount of residual staining, small fragments of stool and/or opaque liquid, but mucosa of colon segment seen well. 3 = Entire mucosa of colon segment seen well with no residual staining, small fragments of stool or opaque liquid) Impression and Post Procedure Diagnosis: Endoscopy Findings: schatzki ring hiatal hernia lax LES Colonoscopy Findings: internal hemorrhoids Plan: Await Pathology results Repeat Colonoscopy in 5 years due to prior hx of crohns or earlier if clinically indicated High fiber diet leaflet avoid straining at stool, epsom salts and sitz bath, anusol supps or cream GERD precautions Above findings were reviewed with the patient and relevant handouts were provided if indicated.
[2023-01-20 11:33] VITALS: BP 120/67; PULSE 89; RESP 18; TEMP 36.3; O2SAT 97
[2023-01-20 11:48] VITALS: BP 119/74; PULSE 78; RESP 18; TEMP 36.4; O2SAT 100
[2023-01-20 12:18] VITALS: BP 125/83; PULSE 82; RESP 18; TEMP 36.4; O2SAT 100
== END 2023-01-20 13:10 ==
LOC: HO.SSS 07:19
PROVIDERS: PCP Internal Medicine; Visit Provider Internal Medicine Gastroenterology
PROC: (CPT 45380; principal; 2023-01-20 09:40)
DX: D64.9 Anemia, unspecified (principal); K50.90 Crohn's disease, unspecified, without complications; K64.0 First degree hemorrhoids; K58.9 Irritable bowel syndrome, unspecified; K29.50 Unspecified chronic gastritis without bleeding; B96.81 Helicobacter pylori [H. pylori] as the cause of diseases classified elsewhere; K22.2 Esophageal obstruction; K22.4 Dyskinesia of esophagus; K44.9 Diaphragmatic hernia without obstruction or gangrene; G47.33 Obstructive sleep apnea (adult) (pediatric); I10 Essential (primary) hypertension; M79.7 Fibromyalgia; F31.9 Bipolar disorder, unspecified; E55.9 Vitamin D deficiency, unspecified; Z79.01 Long term (current) use of anticoagulants; Z79.82 Long term (current) use of aspirin; Z79.899 Other long term (current) drug therapy; Z86.73 Personal history of transient ischemic attack (TIA), and cerebral infarction without residual deficits; Z90.49 Acquired absence of other specified parts of digestive tract
CPT/HCPCS: 45380; 43239; 88305; 88342; J2250

== ENCOUNTER 2023-02-06 08:59 | Outpatient (REF) | payer OTHER, SELFPAY | END 2023-02-06 09:00 | disposition home or self-care (01) | LOC: HO.LAB 08:59 | PROVIDERS: PCP Internal Medicine; Visit Provider Internal Medicine Gastroenterology | DX: K50.90 Crohn's disease, unspecified, without complications (principal); R63.4 Abnormal weight loss; R19.7 Diarrhea, unspecified; K75.81 Nonalcoholic steatohepatitis (NASH); R30.0 Dysuria; Z87.19 Personal history of other diseases of the digestive system | CPT/HCPCS: Q3014 ==

== ENCOUNTER 2023-02-06 18:15 | Outpatient (REF) | payer OTHER, SELFPAY ==
[2023-02-07 09:03] LABS: CDiff Gene PCR NEGATIVE (Negative)
[2023-02-07 11:26] LABS: Adenovirus F 40/41 Not Detected (Not Detect.); Astrovirus Not Detected (Not Detect.); Campylobacter Not Detected (Not Detect.); Cryptosporidium Not Detected (Not Detect.); Cyclospora cayetanensis Not Detected (Not Detect.); E. coli EAEC Not Detected (Not Detect.); E. coli EPEC Not Detected (Not Detect.); E. coli ETEC Not Detected (Not Detect.); E. coli STEC Not Detected (Not Detect.); Entamoeba histolytica Not Detected (Not Detect.); Giardia lamblia Not Detected (Not Detect.); Norovirus GI/GII Not Detected (Not Detect.); Plesiomonas shigelloides Not Detected (Not Detect.); Rotavirus A Not Detected (Not Detect.); Salmonella Not Detected (Not Detect.); Sapovirus Not Detected (Not Detect.); Shigella sp./EIEC Not Detected (Not Detect.); Vibrio Not Detected (Not Detect.); Vibrio Cholerae Not Detected (Not Detect.); Yersinia enterocolitica Not Detected (Not Detect.)
[2023-02-13 20:29] LABS: Lactoferrin, Fecal, Quant. <6.25 mcg/mL (<7.25)
== END 2023-02-06 18:16 | disposition home or self-care (01) ==
LOC: HO.LNP 18:15
PROVIDERS: Visit Provider Internal Medicine Gastroenterology
DX: K50.90 Crohn's disease, unspecified, without complications (principal); R19.7 Diarrhea, unspecified
CPT/HCPCS: 83631

== ENCOUNTER 2023-05-28 13:50 | Emergency (ER) | payer OTHER, SELFPAY ==
--- NOTE | ~2023-05-28 | CT_ITS ---
EXAMINATION: CT ABDOMEN AND PELVIS WITHOUT CONTRAST CLINICAL INFORMATION: Right flank pain. COMPARISON: 07/31/2022 and 03/01/2020 TECHNIQUE: Multidetector volumetric imaging was performed from the superior aspect of the liver through the pubic symphysis. Sagittal and coronal reformatted images were obtained on the technologist's workstation. This CT examination was performed using dose optimization techniques as appropriate, variously including the following: *Automated exposure control *Adjustment of mA and/or kV according to patient size (this includes techniques or standardized protocols for targeted exams where dose is matched to indication/reason for exam; i.e. extremities or head) *Use of iterative reconstruction technique DLP: 730 mGy-cm FINDINGS: LUNG BASES: The visualized lung bases are unremarkable. LIVER, GALLBLADDER, AND BILIARY TREE: The noncontrast liver is normal in size and contour. No biliary ductal dilatation is present. The gallbladder is surgically absent. PANCREAS: Unremarkable. SPLEEN: Unremarkable. ADRENAL GLANDS: Unremarkable. KIDNEYS AND URETERS: The kidneys are symmetric in size. No renal calculus. No hydronephrosis or perinephric stranding. BLADDER: Unremarkable. GASTROINTESTINAL TRACT: Small and large bowel loops are of normal caliber. No small bowel obstruction. Appendix is within normal limits. ABDOMINAL WALL: No significant hernia is appreciated. LYMPH NODES: No bulky abdominal or pelvic lymphadenopathy. VASCULAR: Normal caliber abdominal aorta. PELVIC VISCERA: The uterus and adnexa are unremarkable. OSSEOUS STRUCTURES: No destructive bone lesion. CT/CT abdomen pelvis wo IV con IMPRESSION: No acute abnormality in the abdomen or pelvis.
[2023-05-28 14:23] VITALS: BP 159/95; PULSE 87; RESP 18; TEMP 36.2; O2SAT 98; BMI 39.5
--- NOTE | 2023-05-28 14:25 | ED.GENADULT ---
HPI - General Adult General Chief complaint: Back Pain/Injury Stated complaint: Low Back Pain No Injury Time Seen by Provider: 05/28/23 16:23 Source: patient Mode of arrival: ambulatory Limitations: no limitations History of Present Illness HPI narrative: 48-year-old female came in for evaluation of her right flank pain. Pain started a week ago localized to the right flank area, patient declined any trauma or injury to the right flank or back area, patient also declined any hematuria, no history of previous similar pain in the past, no history of back injury, no weakness or numbness, patient declined any dysuria, frequency urination. No fever, no chills, no nausea, no vomiting, no diarrhea. Never had similar pain in the past. Past surgical history significant for cholecystectomy. Related Data Home Medications Medication Instructions Recorded Confirmed amlodipine 5 mg tablet 5 mg PO DAILY 03/12/21 01/15/23 aspirin 81 mg tablet,delayed 81 mg PO DAILY 03/12/21 01/20/23 release lamotrigine 150 mg tablet 150 mg PO DAILY@0730 03/12/21 01/15/23 lamotrigine 200 mg tablet 200 mg PO BEDTIME 03/12/21 01/15/23 loperamide 2 mg capsule 0 mg PO 03/12/21 tizanidine 4 mg tablet 4 mg PO TID PRN Pain 03/12/21 01/15/23 rivaroxaban 20 mg tablet 20 mg PO BEDTIME 05/07/21 01/20/23 topiramate 50 mg tablet 50 mg PO DAILY 05/07/21 01/15/23 duloxetine 60 mg capsule,delayed 60 mg PO BID 06/20/22 01/15/23 release ferrous sulfate 325 mg (65 mg 325 mg PO DAILY 06/20/22 01/20/23 iron) tablet,delayed release ubrogepant 100 mg tablet (Ubrelvy) 100 mg PO PRN Headache 06/20/22 quetiapine 400 mg tablet 1 tab PO BEDTIME 01/15/23 01/15/23 acetaminophen 650 mg 0 mg PO 02/06/23 tablet,extended release clonazepam 0.5 mg tablet 0.5 mg PO TID PRN 02/06/23 clonazepam 1 mg tablet 0.5 mg PO TID Anxiety 02/06/23 meclizine 25 mg tablet 25 mg PO DAILY PRN 02/06/23 Previous Rx's Medication Instructions Recorded amoxicillin 500 mg capsule 1,000 mg PO BID 2 weeks #56 caps 02/06/23 levofloxacin 500 mg tablet 500 mg PO DAILY #14 tabs 02/06/23 loperamide 2 mg capsule 2 mg PO Q6H PRN loose stool #10 02/06/23 (Anti-Diarrheal (loperamide)) caps pantoprazole 20 mg tablet,delayed 20 mg PO BID 2 weeks #28 tabs 02/06/23 release omeprazole 40 mg capsule,delayed 40 mg PO DAILY #30 caps 03/30/23 release cefuroxime axetil 500 mg tablet 500 mg PO BID #14 tabs 05/28/23 cyclobenzaprine 10 mg tablet 10 mg PO BEDTIME PRN muscle spasm 05/28/23 #10 tabs oxycodone 5 mg tablet 5 mg PO Q8H PRN pain #10 tabs 05/28/23 Allergies Allergy/AdvReac Type Severity Reaction Status Date / Time apixaban [From Eliquis] Allergy Intermediate Itching, Verified 05/28/23 14:23 rash prednisone Allergy Mild Unknown Verified 05/28/23 14:23 Review of Systems Review of Systems: All other systems are reviewed and are negative Constitutional: Reports as per HPI and Reports no additional constitutional complaints Eyes: Reports as per HPI and Reports no additional eye complaints Reports system reviewed and no additional complaints, except as documented Cardiovascular: Reports as per HPI and Reports no additional cardiovascular complaints Respiratory: Reports as per HPI and Reports no additional respiratory complaints Gastrointestinal: Reports as per HPI and Reports no additional gastrointestinal complaints Genitourinary: Reports no additional female genitourinary complaints Musculoskeletal: Reports no additional musculoskeletal complaints Skin/Breast: Reports system reviewed and no additional complaints, except as docu Psychiatric: Reports no additional psychiatric complaints Endocrine: Reports no additional endocrine complaints Hematologic/Lymphatic: Reports no additional hematologic/lymphatic complaints Allergic/Immunologic: Reports no additional allergic/immunologic complaints Reports system reviewed and no additional complaints, except as documented and Reports Abnormal speech present PMFSH Past Medical History Medical History Anxiety Anxiety and depression Bipolar disorder Chronic depression Crohn disease Fibromyalgia H/O blood clots H/O stroke within last year History of CVA (cerebrovascular accident) HTN (hypertension) IBS (irritable bowel syndrome) LOC (loss of consciousness) Migraine On anticoagulant therapy KAYODE (obstructive sleep apnea) Vitamin D deficiency Surgical History History of History of colonoscopy Hx of cholecystectomy Hx of endoscopy Hx of tubal ligation Family History Family History Father Hx of type 1 diabetes mellitus History of high cholesterol Mother Family history of high blood pressure Social History Social History Household Members: None Household Members Other:: mother Are you a primary transitional care liaison to a significant other at home: No Do you presently have visiting nurse or other home services: No Alcohol intake: never Patient Tobacco Use Status: Never used Tobacco Smoked in Last 30 Days: No Use of substances other than those prescribed or required for medical reasons: No Advance Directives: No Advance Directives Information Provided: Yes Current occupational status: disabled Physical Exam ED Vital Signs: Vital Signs - 24 hr 05/28/23 14:23 05/28/23 16:21 05/28/23 17:32 Temperature 97.1 F 98.5 F 97.6 F Pulse Rate 87 67 69 Respiratory Rate 18 16 16 Blood Pressure 159/95 H 158/82 H 161/69 H Pulse Oximetry 98 97 100 Oxygen Delivery Method Room Air Room Air Room Air 05/28/23 19:41 05/28/23 22:27 Temperature 97.2 F 98.1 F Pulse Rate 79 74 Respiratory Rate 16 16 Blood Pressure 159/76 H 154/77 H Pulse Oximetry 100 98 Oxygen Delivery Method Room Air Room Air BMI result Body Mass Index 39.5 Vital signs have been reviewed as appeared to be correct. Blood pressure normal. Heart rate normal. Respiration rate normal. Temperature normal. Oxygen saturation normal. Appearance: Alert. Oriented X3. No acute distress. Head: Normal external exam. Normocephalic. Atraumatic. No Foster signs noted. No raccoon eyes noted Eyes: PERRLA. EOMI. Conjunctiva and sclera normal. Eyelids normal. ENT: TM's Normal. Pharynx normal. Uvula midline. Moist mucous membranes. No trismus noted. No drooling noted. No muffled voice noted. Neck: Normal inspection. Neck supple. FROM. No adenopathy. Thyroid Normal. No meningeal signs. No neck mass noted. CVS: Normal heart rate and rhythm. Heart sound normal. No murmurs noted. Pulses normal throughout. Respiratory: No respiratory distress. Painless inspiration. Breath sounds normal. No wheezes/rales/rhonchi noted. Chest nontender. No accessory muscle usage noted or decreased air movement noted. Abdomen: Soft and nontender. Bowel sounds normal in all 4 quadrants. No distention noted. No organomegaly noted. No visible injury noted. Back: Right CVA tenderness. Full range of motion noted. Skin: Skin warm and dry. Normal skin color. Normal skin turgor. No rashes/lesions/lacerations noted. Extremities: No lower extremity edema. Extremities exhibit normal range of motion. Extremities nontender. Neuro: Oriented X 3. Cranial nerve exam: II-XII are grossly intact No motor deficit. No sensory deficit. Reflexes normal. Course Course Course Narrative: This is an RME: Additional HPI, ROS, PE not included below will be deferred to primary provider. This is a 48-year-old, costochondritis, crohns, CVA on xarelto, presenting to the ER with complaints of right sided flank pain x 1 week, worsening today. No recent trauma or injury. No urinary symptoms. No fevers or chills. No nausea. As she was waiting in triage, she endorsed some midsternal chest pain. No SOB. Pt is tearful, appears uncomfortable. VSS Plan: Labs, UA, EKG, CT abd & pelvis. Reevaluation(s) Reevaluation #1: Right flank pain for 1 week that is constant, no CT evidence of renal stone physical exam is consistent with muscular strain, patient will be going home on muscle relaxant and oxycodone patient was educated about the drug and its side effect including but not limited to causing drowsiness that may lead to mechanical fall. Patient also is showing mild UTI will discharged on cefuroxime and recommend to drink plenty of fluids. Hypokalemia that was replaced with oral KCl patient was instructed to eat 1 banana or 1 orange a day. Time: 22:31 Medications Administered Discontinued Medications Generic Name Dose Route Start Last Admin Trade Name Freq PRN Reason Stop Dose Admin Potassium Chloride 40 meq 05/28/23 19:45 05/28/23 22:04 Potassium Chloride Packet 20 Meq Packet PO 05/28/23 19:46 40 meq ONCE ONE Administration Medical Decision Making Differential Diagnosis Differential Diagnoses: The differential diagnosis associated with the presentation includes (Kidney stone, pyelonephritis, UTI, electrolyte abnormality, severe anemia, myofascial muscular pain.) Admission/Observation Consideration of admission/observation: Escalation of care including admission/observation considered Lab Data MDM Lab Attestation statement: I reviewed the patient's lab results. 05/28/23 14:48 05/28/23 14:48 Labs: Lab Results 05/28/23 05/28/23 05/28/23 Range/Units 14:48 14:48 14:48 WBC 7.3 (4.8-10.8) X10*3/uL RBC 4.85 D (4.20-5.50) X10*6/uL Hgb 12.5 D (12.0-16.0) g/dl Hct 39.1 D (37.0-47.0) % MCV 80.6 (80.0-98.0) fL MCH 25.8 L (27.0-33.0) pg MCHC 32.0 (31.0-35.0) g/dl RDW 19.5 H (11.0-16.0) % Plt Count 303 (160-400) X10*3/uL MPV 11.4 (9.4-12.3) fL Immature Gran % (Auto) 0.3 (0.0-0.4) % Neut % (Auto) 60.8 (45-73) % Lymph % (Auto) 31.1 (20-40) % Barry % (Auto) 5.8 (2-11) % Eos % (Auto) 1.0 (0-4) % Baso % (Auto) 1.0 (0-2) % Lymph # (Auto) 2.3 (1.2-4.9) X10*3/uL Barry # (Auto) 0.4 (0.1-1.2) X10*3/uL Eos # (Auto) 0.1 (0.0-0.4) X10*3/uL Baso # (Auto) 0.1 (0.0-0.2) X10*3/uL Abs Immat Gran (auto) 0.02 (0.00-0.03) X10*3/uL Absolute Neuts (auto) 4.5 (2.0-8.3) x10*3/uL Absolute Nucleated RBC 0.000 (0.0-0.012) X10*3/uL Nucleated RBC % (auto) 0.0 (0.0-0.2) /100WBC PT (10.0-13.1) SEC INR (0.9-1.1) APTT (26.0-36.4) SEC Sodium 141 (135-145) mmol/L Potassium 2.9 L D (3.3-5.1) mmol/L Chloride 108 (96-108) mmol/L Carbon Dioxide 25 (22-29) mmol/L Anion Gap 11 L (12-20) BUN 6 L (9-16) mg/dL Creatinine 0.77 (0.5-1.4) mg/dL Estim Creat Clear Calc 85.7 Estimated GFR > 60 Random Glucose 110 (60-115) mg/dL Calcium 9.0 (8.4-10.2) mg/dL Total Bilirubin 0.3 (0.0-1.0) mg/dL Direct Bilirubin 0.1 (0.0-0.5) mg/dL AST 18 (5-31) U/L ALT 15 (0-31) U/L Alkaline Phosphatase 107 (39-117) U/L Troponin I High Sens < 2.7 (<3.5-17.0) ng/L Total Protein 7.0 (6.5-8.0) g/dL Albumin 3.9 (3.5-5.0) g/dL Lipase 13 (8-78) U/L Urine Color Urine Appearance Urine pH (5.0-9.0) Ur Specific [place] (1.005-1.025) Urine Protein (Neg-Trace) mg/dL Urine Glucose (UA) (Negative) mg/dL Urine Ketones (Negative) mg/dL Urine Blood (Negative) Urine Nitrite (Negative) Ur Leukocyte Esterase (Negative) Urine RBC (0-2) /HPF Urine WBC (0-5) /HPF Ur Squamous Epith Cells (0-2) /HPF Urine Bacteria (None Seen) Hyaline Casts (0-2) /LPF 05/28/23 05/28/23 Range/Units 15:22 20:05 WBC (4.8-10.8) X10*3/uL RBC (4.20-5.50) X10*6/uL Hgb (12.0-16.0) g/dl Hct (37.0-47.0) % MCV (80.0-98.0) fL MCH (27.0-33.0) pg MCHC (31.0-35.0) g/dl RDW (11.0-16.0) % Plt Count (160-400) X10*3/uL MPV (9.4-12.3) fL Immature Gran % (Auto) (0.0-0.4) % Neut % (Auto) (45-73) % Lymph % (Auto) (20-40) % Barry % (Auto) (2-11) % Eos % (Auto) (0-4) % Baso % (Auto) (0-2) % Lymph # (Auto) (1.2-4.9) X10*3/uL Barry # (Auto) (0.1-1.2) X10*3/uL Eos # (Auto) (0.0-0.4) X10*3/uL Baso # (Auto) (0.0-0.2) X10*3/uL Abs Immat Gran (auto) (0.00-0.03) X10*3/uL Absolute Neuts (auto) (2.0-8.3) x10*3/uL Absolute Nucleated RBC (0.0-0.012) X10*3/uL Nucleated RBC % (auto) (0.0-0.2) /100WBC PT 10.0 (10.0-13.1) SEC INR 0.9 (0.9-1.1) APTT 25.4 L (26.0-36.4) SEC Sodium (135-145) mmol/L Potassium (3.3-5.1) mmol/L Chloride (96-108) mmol/L Carbon Dioxide (22-29) mmol/L Anion Gap (12-20) BUN (9-16) mg/dL Creatinine (0.5-1.4) mg/dL Estim Creat Clear Calc Estimated GFR Random Glucose (60-115) mg/dL Calcium (8.4-10.2) mg/dL Total Bilirubin (0.0-1.0) mg/dL Direct Bilirubin (0.0-0.5) mg/dL AST (5-31) U/L ALT (0-31) U/L Alkaline Phosphatase (39-117) U/L Troponin I High Sens (<3.5-17.0) ng/L Total Protein (6.5-8.0) g/dL Albumin (3.5-5.0) g/dL Lipase (8-78) U/L Urine Color Yellow Urine Appearance Turbid Urine pH 7.5 (5.0-9.0) Ur Specific [place] 1.015 (1.005-1.025) Urine Protein 30 (1+) H (Neg-Trace) mg/dL Urine Glucose (UA) Negative (Negative) mg/dL Urine Ketones Trace (Negative) mg/dL Urine Blood Large (3+) H (Negative) Urine Nitrite Negative (Negative) Ur Leukocyte Esterase Negative (Negative) Urine RBC 6-10 H (0-2) /HPF Urine WBC 6-10 H (0-5) /HPF Ur Squamous Epith Cells >20 (0-2) /HPF Urine Bacteria 4+ (None Seen) Hyaline Casts 0-2 (0-2) /LPF Independent Interpretation I performed an independent interpretation of an: CT Scan (Abdomen and pelvis: No acute intra-abdominal pathology. ) Radiology Impression Discussion of test interpretation with radiology: I have reviewed the radiologist's reading. Discharge Plan Discharge Clinical Impression: Strain of lumbar region, Acute hypokalemia Patient Disposition: Home, Self-Care Instructions: Muscle Strain (ED), Urinary Tract Infection in Women (DC) Additional Instructions: Drink plenty of fluids for UTI. Take the pain medication as we discussed only for severe pain otherwise control her pain with Tylenol, oxycodone can cause severe dizziness and resulting in mechanical falling causing injuries. Make an appointment with your PCP for follow-up. Eat 1 banana or 1 orange a day for your low potassium. Prescriptions: New cyclobenzaprine 10 mg tablet 10 mg PO BEDTIME PRN (Reason: muscle spasm) Qty: 10 0RF cefuroxime axetil 500 mg tablet 500 mg PO BID Qty: 14 0RF oxycodone 5 mg tablet 5 mg PO Q8H PRN (Reason: pain) Qty: 10 0RF Rx Instructions: Partial Fill upon patient request. No Action omeprazole 40 mg capsule,delayed release(DR/EC) 40 mg PO DAILY Qty: 30 3RF Hold Instructions: Doctor's Order quetiapine 400 mg tablet 1 tab PO BEDTIME Xarelto 20 mg tablet 20 mg PO BEDTIME topiramate 50 mg tablet 50 mg PO DAILY amlodipine 5 mg tablet 5 mg PO DAILY tizanidine 4 mg tablet 4 mg PO TID PRN (Reason: Pain) loperamide 2 mg capsule 0 mg PO lamotrigine 200 mg tablet 200 mg PO BEDTIME lamotrigine 150 mg tablet 150 mg PO DAILY@0730 aspirin 81 mg tablet,delayed release (DR/EC) 81 mg PO DAILY clonazepam 1 mg tablet 0.5 mg PO TID ferrous sulfate 325 mg (65 mg iron) tablet,delayed release (DR/EC) 325 mg PO DAILY Ubrelvy 100 mg tablet 100 mg PO PRN (Reason: Headache) duloxetine 60 mg capsule,delayed release(DR/EC) 60 mg PO BID meclizine 25 mg tablet 25 mg PO DAILY PRN acetaminophen 650 mg tablet extended release 0 mg PO clonazepam 0.5 mg tablet 0.5 mg PO TID PRN loperamide [Anti-Diarrheal (loperamide)] 2 mg capsule 2 mg PO Q6H PRN (Reason: loose stool) Qty: 10 0RF amoxicillin 500 mg capsule 1,000 mg PO BID 14 Days Qty: 56 0RF levofloxacin 500 mg tablet 500 mg PO DAILY Qty: 14 0RF pantoprazole 20 mg tablet,delayed release (DR/EC) 20 mg PO BID 14 Days Qty: 28 0RF Interventions: ED Discharge Assessment Last Done: 05/28/23 22:34
--- NOTE | 2023-05-28 14:28 | ECG_ITS ---
Test Reason : chest pain Blood Pressure : / mmHG Vent. Rate : 077 BPM Atrial Rate : 077 BPM P-R Int : 140 ms QRS Dur : 074 ms QT Int : 430 ms P-R-T Axes : 034 023 012 degrees QTc Int : 486 ms Normal sinus rhythm Normal ECG When compared with ECG of 01-JAN-2023 18:47, No significant change was found Referred By: Sulma Mahan Electronically Signed By:Christiano Brown
[2023-05-28 14:53] LABS: MANUAL DIFF FLAG NO
[2023-05-28 15:07] LABS: Basophils Absolute Auto 0.1 X10*3/uL (0.0-0.2); Eosinophils Absolute Auto 0.1 X10*3/uL (0.0-0.4); Hematocrit 39.1 % (37.0-47.0); Hemoglobin 12.5 g/dl (12.0-16.0); Imm Gran Abs Auto 0.02 X10*3/uL (0.00-0.03); Imm Gran Pct Auto 0.3 % (0.0-0.4); Lymphocytes Absolute Auto 2.3 X10*3/uL (1.2-4.9); Lymphocytes Percent Auto 31.1 % (20-40); Mean Corpuscular Hemoglobin 25.8 pg (27.0-33.0); Mean Corpuscular Volume 80.6 fL (80.0-98.0); Mean Platelet Volume 11.4 fL (9.4-12.3); Monocytes Absolute Auto 0.4 X10*3/uL (0.1-1.2); Monocytes Percent Auto 5.8 % (2-11); Neutrophils Absolute Auto 4.5 x10*3/uL (2.0-8.3); Neutrophils Percent Auto 60.8 % (45-73); Platelet Count 303 X10*3/uL (160-400); Red Blood Count 4.85 X10*6/uL (4.20-5.50); Red Cell Distribution Width 19.5 % (11.0-16.0); White Blood Count 7.3 X10*3/uL (4.8-10.8)
[2023-05-28 15:19] LABS: Alanine Aminotransferase 15 U/L (0-31); Albumin Level 3.9 g/dL (3.5-5.0); Alkaline Phosphatase 107 U/L (39-117); Anion Gap 11 (12-20); Aspartate Amino Transferase 18 U/L (5-31); Bilirubin Direct 0.1 mg/dL (0.0-0.5); Bilirubin Total 0.3 mg/dL (0.0-1.0); Blood Urea Nitrogen 6 mg/dL (9-16); Carbon Dioxide 25 mmol/L (22-29); Chloride 108 mmol/L (96-108); Creatinine Clr Calc Pharmacy 85.7; Estimated Glomerular Filt Rate > 60; Glucose Random 110 mg/dL (60-115); Lipase 13 U/L (8-78); Potassium 2.9 mmol/L (3.3-5.1); Sodium 141 mmol/L (135-145)
[2023-05-28 15:58] LABS: INTERNATIONAL NORM RATIO 0.9 (0.9-1.1)
[2023-05-28 16:00] LABS: Partial Thromboplastin Time 25.4 SEC (26.0-36.4)
[2023-05-28 16:00] LABS: Troponin-I High Sensitivity < 2.7 ng/L (<3.5-17.0)
[2023-05-28 16:21] VITALS: BP 158/82; PULSE 67; RESP 16; TEMP 36.9; O2SAT 97
[2023-05-28 17:32] VITALS: BP 161/69; PULSE 69; RESP 16; TEMP 36.4; O2SAT 100
[2023-05-28 19:41] VITALS: BP 159/76; PULSE 79; RESP 16; TEMP 36.2; O2SAT 100
--- NOTE | 2023-05-28 19:42 | MHC.EDTECH ---
PATIENT SAID SHE STILL CANT GIVE URINE SAMPLE ,RN ARACELI AWARE .
[2023-05-28 20:15] LABS: Appearance Urine Turbid; Color Urine Yellow; Glucose Urine UA Negative (Negative); Leukocyte Esterase Urine Negative (Negative); Nitrite Urine Negative (Negative); PH 7.5 (5.0-9.0); Specific Gravity - Urine 1.015 (1.005-1.025); UMIC TRIGGER UACC YES; Urine Blood Large (3+) (Negative); Urine Ketones Trace mg/dL (Negative); Urine Protein 30 (1+) mg/dL (Neg-Trace)
[2023-05-28 21:31] LABS: Bacteria Urine 4+ (None Seen); Hyaline Casts Urine 0-2 /LPF (0-2); Squamous Epithelial Cell Urine >20 /HPF (0-2); UACC Culture Trigger YES
[2023-05-28] MEDS: Potassium Chloride Packet 20 MEQ PACKET 40 MEQ PO (22:04)
[2023-05-28 22:27] VITALS: BP 154/77; PULSE 74; RESP 16; TEMP 36.7; O2SAT 98
== END 2023-05-28 22:37 | disposition home or self-care (01) ==
PROVIDERS: Physician Assistant Medical; Emergency Provider Emergency Medicine; PCP Internal Medicine
DX: S39.012A Strain of muscle, fascia and tendon of lower back, initial encounter (principal); X58.XXXA Exposure to other specified factors, initial encounter; E87.6 Hypokalemia; N39.0 Urinary tract infection, site not specified; B95.1 Streptococcus, group B, as the cause of diseases classified elsewhere; Y93.9 Activity, unspecified; Y92.9 Unspecified place or not applicable; Y99.9 Unspecified external cause status; I10 Essential (primary) hypertension; Z86.73 Personal history of transient ischemic attack (TIA), and cerebral infarction without residual deficits; Z79.01 Long term (current) use of anticoagulants
CPT/HCPCS: 36415; 74176; 80048; 80076; 81001; 83690; 84484; 85025; 85610; 85730; 87086; 87147; 93005; 99284

== ENCOUNTER → 2023-05-28 14:28 | Outpatient (BNV) | payer OTHER, SELFPAY | PROVIDERS: Emergency Provider Emergency Medicine; PCP Internal Medicine; Visit Provider Internal Medicine Cardiovascular Disease | DX: R07.9 Chest pain, unspecified (principal) | CPT/HCPCS: 93010 ==

== ENCOUNTER 2023-06-29 10:38 | Outpatient (AMB) | payer OTHER, SELFPAY ==
--- NOTE | 2023-06-29 10:38 | MHC.OFFVIS ---
Intake Intake Visit Reasons: f/u hp Intake Note: Melinda presents on phone for a f/u PT CC: pt reports having abdominal pain , diarrhea pt denies any other GI Issues Icing Coater Required: Yes Accompanied by: Self / Same As Patient Allergies apixaban [From Eliquis] Allergy (Intermediate, Verified 06/29/23 10:39) Itching, rash prednisone Allergy (Mild, Verified 06/29/23 10:39) Unknown HPI f/u hp HPI Details 48 yr old f being called for f/u RECAP: ? I saw her at [facility] and she was eventually dx with suspected remitting and relapsing crohns and put on humira ? now she is c/o diffuse abdominal pain for 1-2 months, cramping ? not the same as her prior pains ? worse w passing gas and stool ? stool is soft and comes out easy ? she does have nausea for 1.5 wks and chills for 2 weeks ? she denies sore throat or fever, no cough ? appetite is fair ? weight is going down 212-->#193 ? not taking narcs, ? she is taking ibuprofen 250 mg q 6 hrs for 1 week ? she is taking omeprazole 20 mg once a day ? she feels humira works well for 1 week but following week pain returns uintil she gets her injection following week ADA level was ok, sx improved so we held on increasing humira in the interim she was evaluated by hematology due to thromboembolic events incl CVA, PTE she is on xarelto, pending further thrombotic w/u she was losing weight 55# over 2 months she has been taking humira as prescribed apparently she is b12 def and been on replacement humira levels were good with no Ab she was placed on entyvio when I saw her last she had not had entyvio for >6 months or so TESTS: ? MR enterogram 02/2020--essentially normal ? labs 04/2020 ? fecal calprotectin--neg ? ADA level 7.8, no AB ? LFt nml bubble study at [facility] --neg per heme report EGD/colo: 01/20/23 Endoscopy Findings: schatzki ring hiatal hernia lax LES Colonoscopy Findings: internal hemorrhoids PATH: A.? Duodenum, biopsy:? Duodenal mucosa within normal limits. B.? Stomach, biopsy: - Antral-type mucosa with moderate chronic active inflammation. - Positive for H pylori. C.? GE junction, biopsy: - Cardiac-type mucosa with moderate chronic inactive inflammation; no intestinal metaplasia seen. - Squamous mucosa within normal limits. D.? Esophagus, distal, biopsy:? Squamous epithelium within normal limits; no inflammation seen. E.? Terminal ileum, biopsy:? Small intestinal mucosa within normal limits. F. ? Colon, right, biopsy:? Colonic mucosa within normal limits. G.? Colon, transverse and left, biopsy:? Colonic mucosa within normal limits. H.? Rectum, biopsy:? Rectal mucosa within normal limits. ? INTERIM: she has had right flank pain going from back and into the groin aching in nature, had been to ED, CT was neg but urine pos for strep agalactiae --she was given cefuroxime no relieving factors no exacerbating factors denies dysruia or frequency she is still on xarelto she also noted on and off diarrhea, no blood noted appetite is variable she took the triple therapy for H pylori, felt it did not help EXAM-Video: GENERAL: The patient is well developed and nontoxic--talking easily, sitting in yard Assessment & Plan (1) Crohn's disease- mild sx, she missed entyvio due to hospital admission and not had it for months now, recent colonoscopy was neg for inflammation in TI and colon 2/ thromboembolic events, no obvious trigger, undergoing w/u, IBD is a hypercoaguable state and can predispose to clots 3/? has anemia whilst on NOAC, ? mucosal bleeding from active crohns--seems to have resolved 4/ h pylori, may be contributing to 3/ above PLAN: 1/ recheck stool studies julia c diff and GI stool panel 2/recheck urine 3/ h pylori test if above neg but has to wait 4 weeks from last course of ABX and 2 weeks off PPI PFSH Medical History Anxiety Anxiety and depression Bipolar disorder Chronic depression Crohn disease Fibromyalgia H/O blood clots H/O stroke within last year History of CVA (cerebrovascular accident) HTN (hypertension) IBS (irritable bowel syndrome) LOC (loss of consciousness) Migraine On anticoagulant therapy KAYODE (obstructive sleep apnea) Vitamin D deficiency Surgical History History of History of colonoscopy Hx of cholecystectomy Hx of endoscopy Hx of tubal ligation Family History Father Hx of type 1 diabetes mellitus History of high cholesterol Mother Family history of high blood pressure Social History Household Members: None Household Members Other:: mother Are you a primary anesthesiologist and critical care to a significant other at home: No Do you presently have visiting nurse or other home services: No Alcohol intake: never Patient Tobacco Use Status: Never used Tobacco Current occupational status: disabled Assessment & Plan Assessment & Plan (1) Crohn's disease: Code(s): K50.90 - Crohn's disease, unspecified, without complications Orders: Orders Lactoferrin, Fecal, Quant. Today K50.90 - Crohn's disease, unspecified, without complications, K51.50 - Left sided colitis without complications CDiff Gene PCR Today K50.90 - Crohn's disease, unspecified, without complications GI Panel Today K50.90 - Crohn's disease, unspecified, without complications, R19.7 - Diarrhea, unspecified UA CC w/rflx Micro + Cult Today R30.0 - Dysuria Medications: New hyoscyamine sulfate (Levsin/SL) 0.125 mg PO QID 90 tabs 1RF Discontinued levofloxacin Discontinued Reason: Doctor's Order 500 mg PO DAILY 14 tabs 0RF Telehealth Telehealth Location of provider rendering services: practice address Location of patient: address on file Patient Identification confirmed using: Name, : Yes Telehealth method: video Patient verbally consented to treatment: Yes Patient verbally consented to billing insurance company: Yes Patient informed of any privacy concerns related to visit: Yes Minutes spent on Phone/Video with Pt.: 9 Coding Level of Care Code Tele Est Pt Level 3 (88050) Diagnoses Crohn's disease K50.90
== END 2023-06-29 12:42 | disposition home or self-care (01) ==
LOC: HO.HGI 10:38
PROVIDERS: PCP Internal Medicine; Visit Provider Internal Medicine Gastroenterology
DX: K50.90 Crohn's disease, unspecified, without complications (principal)
CPT/HCPCS: 99213

== ENCOUNTER → 2023-06-29 10:38 | Outpatient (BNVA) | payer OTHER, SELFPAY | PROVIDERS: PCP Internal Medicine; Visit Provider Internal Medicine Gastroenterology | DX: K51.50 Left sided colitis without complications (principal); R19.7 Diarrhea, unspecified; Z90.49 Acquired absence of other specified parts of digestive tract | CPT/HCPCS: Q3014 ==

== ENCOUNTER 2023-08-26 07:30 | Emergency (ER) | payer OTHER, SELFPAY ==
--- NOTE | ~2023-08-26 | CT_ITS ---
EXAMINATION: CT ANGIOGRAM OF THE CHEST WITH AND WITHOUT CONTRAST (CT PULMONARY ANGIOGRAM FOR PE) CLINICAL INFORMATION: Reason for Exam chest pain, elevated D-dimer COMPARISON: Same day chest radiograph TECHNIQUE: Prior to contrast administration, noncontrast localization images were obtained. Subsequently, multidetector volumetric imaging was performed from the thoracic inlet to below the diaphragms following the administration of 80 mL Omnipaque 350 intravenous contrast. No contrast reaction reported Sagittal, coronal, and MIP oblique sagittal reformatted images were obtained on the CT workstation, uploaded to PACS, and reviewed. This CT examination was performed using dose optimization techniques as appropriate, variously including the following: *Automated exposure control *Adjustment of mA and/or kV according to patient size (this includes techniques or standardized protocols for targeted exams where dose is matched to indication/reason for exam; i.e. extremities or head) *Use of iterative reconstruction technique Total exam dose-length product 37 mGy-cm FINDINGS: ACCOUNT ADJUSTER: Negative QUALITY OF STUDY/CONTRAST BOLUS: Satisfactory. PULMONARY ARTERIES: Main pulmonary artery with cardiac motion artifact. Nonenlarged pulmonary arteries with no filling defects to suggest pulmonary thromboembolism. No ventricular septal bowing. No significant contrast reflux into the inferior vena cava. Nonaneurysmal aorta with patency of the branch vessels. THORACIC AORTA: No aneurysm. LUNGS: Trachea and bronchi are patent. Medial right lower lobe bulla. No consolidations, groundglass opacities or pulmonary nodules. PLEURA: No pleural effusion or pneumothorax. MEDIASTINUM: Unremarkable thyroid. Small hiatal hernia. No pathologic lymphadenopathy. Nonenlarged heart. No pericardial effusion. CORONARY ARTERY CALCIFICATION: None visualized on this study. CHEST WALL/AXILLA: No axillary or internal mammary lymphadenopathy. OSSEOUS STRUCTURES: No acute or suspicious osseous abnormality. UPPER ABDOMEN: Status post cholecystectomy. Hepatic calcifications. CT/CT angio chest PE protocol IMPRESSION: No CT evidence of pulmonary thromboembolism. VTE: Negative
--- NOTE | ~2023-08-26 | XR_ITS ---
EXAMINATION: XR CHEST CLINICAL INFORMATION: Chest pain COMPARISON: 01/01/2023 TECHNIQUE: 2 views of the chest were obtained. FINDINGS: No significant abnormality is noted involving the heart, lungs, mediastinum, bony thorax or soft tissues. XR/XR chest 2V IMPRESSION: Unremarkable examination.
--- NOTE | 2023-08-26 07:33 | ECG_ITS ---
Test Reason : cp Blood Pressure : / mmHG Vent. Rate : 071 BPM Atrial Rate : 071 BPM P-R Int : 166 ms QRS Dur : 078 ms QT Int : 436 ms P-R-T Axes : 038 024 025 degrees QTc Int : 473 ms Normal sinus rhythm Normal ECG Referred By: Generic ED Physician Electronically Signed By:COOKIE SOSA MD
[2023-08-26 07:49] VITALS: BP 173/88; PULSE 72; RESP 17; TEMP 36.2; O2SAT 100; BMI 39.0
[2023-08-26 07:54] LABS: MANUAL DIFF FLAG NO
[2023-08-26 07:59] LABS: Basophils Absolute Auto 0.1 X10*3/uL (0.0-0.2); Eosinophils Absolute Auto 0.1 X10*3/uL (0.0-0.4); Eosinophils Percent Auto 0.8 % (0-4); Hematocrit 36.9 % (37.0-47.0); Hemoglobin 12.3 g/dl (12.0-16.0); Imm Gran Abs Auto 0.02 X10*3/uL (0.00-0.03); Imm Gran Pct Auto 0.3 % (0.0-0.4); Lymphocytes Absolute Auto 1.9 X10*3/uL (1.2-4.9); Lymphocytes Percent Auto 31.3 % (20-40); Mean Corpuscular HGB Conc 33.3 g/dl (31.0-35.0); Mean Corpuscular Hemoglobin 27.6 pg (27.0-33.0); Mean Corpuscular Volume 82.9 fL (80.0-98.0); Mean Platelet Volume 11.4 fL (9.4-12.3); Monocytes Absolute Auto 0.4 X10*3/uL (0.1-1.2); Monocytes Percent Auto 5.7 % (2-11); Neutrophils Absolute Auto 3.7 x10*3/uL (2.0-8.3); Neutrophils Percent Auto 60.9 % (45-73); Platelet Count 261 X10*3/uL (160-400); Red Blood Count 4.45 X10*6/uL (4.20-5.50); Red Cell Distribution Width 14.9 % (11.0-16.0); White Blood Count 6.1 X10*3/uL (4.8-10.8)
[2023-08-26 08:06] LABS: Anion Gap 13 (12-20); Blood Urea Nitrogen 9 mg/dL (9-16); Calcium 9.1 mg/dL (8.4-10.2); Carbon Dioxide 20 mmol/L (22-29); Chloride 104 mmol/L (96-108); Creatinine Clr Calc Pharmacy 67.5; Estimated Glomerular Filt Rate > 60; Glucose Random 95 mg/dL (60-115); Sodium 133 mmol/L (135-145)
[2023-08-26 08:16] LABS: Troponin-I High Sensitivity < 2.7 ng/L (<3.5-17.0)
--- NOTE | 2023-08-26 08:19 | ED_ITS ---
HPI - General Adult General Chief complaint: General Medical Stated complaint: chest pain Time Seen by Provider: 08/26/23 08:19 Source: patient Mode of arrival: ambulatory Limitations: no limitations History of Present Illness HPI narrative: Patient is a 48-year-old female with history of CVA in 2020 on Xarelto, HTN, IBS, KAYODE, Crohn's disease, anxiety and depression, bipolar disorder presenting to the emergency department with complaint chest pain since 8:00 p.m. last night. Patient states the pain began while she was lying down. Rates current pain at 10/10 and states pain has been constant. Also complains of frontal headache and nausea. Denies vomiting, diarrhea, constipation. Reports pain begins in the center of her chest and radiated to the left side of her chest. Denies that headache was worst at onset, denies worst headache of life. Denies visual changes. Denies recent cough or fevers. Took Tylenol for headache with little relief. She reports right sided deficits from prior CVA. Denies recent calf pain or swelling. Denies hemoptysis. Denies current dizziness or lightheadedness. MD complaint: chest pain Onset (ago): hour(s) Location: chest Severity: severe Severity scale (1-10): 10 Quality: sharp Pain Consistency: constant Relieving factors: none Exacerbating factors: none Associated symptoms: headaches and nausea/vomiting (reports nausea, denies vomiting) Treatments prior to arrival: other (Tylenol) Related Data Home Medications Medication Instructions Recorded Confirmed amlodipine 5 mg tablet 5 mg PO DAILY 03/12/21 01/15/23 aspirin 81 mg tablet,delayed 81 mg PO DAILY 03/12/21 01/20/23 release lamotrigine 150 mg tablet 150 mg PO DAILY@0730 03/12/21 01/15/23 lamotrigine 200 mg tablet 200 mg PO BEDTIME 03/12/21 01/15/23 loperamide 2 mg capsule 0 mg PO 03/12/21 tizanidine 4 mg tablet 4 mg PO TID PRN Pain 03/12/21 01/15/23 rivaroxaban 20 mg tablet 20 mg PO BEDTIME 05/07/21 01/20/23 topiramate 50 mg tablet 50 mg PO DAILY 05/07/21 01/15/23 duloxetine 60 mg capsule,delayed 60 mg PO BID 06/20/22 01/15/23 release ferrous sulfate 325 mg (65 mg 325 mg PO DAILY 06/20/22 01/20/23 iron) tablet,delayed release ubrogepant 100 mg tablet (Ubrelvy) 100 mg PO PRN Headache 06/20/22 quetiapine 400 mg tablet 1 tab PO BEDTIME 01/15/23 01/15/23 acetaminophen 650 mg 0 mg PO 02/06/23 tablet,extended release clonazepam 0.5 mg tablet 0.5 mg PO TID PRN 02/06/23 clonazepam 1 mg tablet 0.5 mg PO TID Anxiety 02/06/23 meclizine 25 mg tablet 25 mg PO DAILY PRN 02/06/23 Previous Rx's Medication Instructions Recorded loperamide 2 mg capsule 2 mg PO Q6H PRN loose stool #10 02/06/23 (Anti-Diarrheal (loperamide)) caps pantoprazole 20 mg tablet,delayed 20 mg PO BID 2 weeks #28 tabs 02/06/23 release omeprazole 40 mg capsule,delayed 40 mg PO DAILY #30 caps 03/30/23 release cyclobenzaprine 10 mg tablet 10 mg PO BEDTIME PRN muscle spasm 05/28/23 #10 tabs oxycodone 5 mg tablet 5 mg PO Q8H PRN pain #10 tabs 05/28/23 hyoscyamine sulfate 0.125 mg 0.125 mg PO QID #90 tabs 06/29/23 sublingual tablet (Levsin/SL) lidocaine 5 % topical patch 1 patch topical DAILY #15 ea 08/26/23 Allergies Allergy/AdvReac Type Severity Reaction Status Date / Time apixaban [From Eliquis] Allergy Intermediate Itching, Verified 06/29/23 10:39 rash prednisone Allergy Mild Unknown Verified 06/29/23 10:39 Review of Systems 2 Review of Systems: As per HPI. Yes all other systems are reviewed and are negative Constitutional: Constitutional: Reports as per HPI PMF Past Medical History Medical History Anxiety Anxiety and depression Bipolar disorder Chronic depression Crohn disease Fibromyalgia H/O blood clots H/O stroke within last year History of CVA (cerebrovascular accident) HTN (hypertension) IBS (irritable bowel syndrome) LOC (loss of consciousness) Migraine On anticoagulant therapy KAYODE (obstructive sleep apnea) Vitamin D deficiency Surgical History History of History of colonoscopy Hx of cholecystectomy Hx of endoscopy Hx of tubal ligation Family History Family History Father Hx of type 1 diabetes mellitus History of high cholesterol Mother Family history of high blood pressure Social History Social History Household Members: None Household Members Other:: mother Are you a primary home health care coordinator to a significant other at home: No Do you presently have visiting nurse or other home services: No Alcohol intake: never Patient Tobacco Use Status: Never used Tobacco Smoked in Last 30 Days: No Use of substances other than those prescribed or required for medical reasons: No Advance Directives: No Advance Directives Information Provided: No Current occupational status: disabled Physical Exam ED Vital Signs: Vital Signs - 24 hr 08/26/23 07:49 08/26/23 08:21 Temperature 97.1 F Pulse Rate 72 71 Respiratory Rate 17 18 Blood Pressure 173/88 H 168/93 H Pulse Oximetry 100 100 Oxygen Delivery Method Room Air Room Air BMI result Body Mass Index 39.0 Vital signs have been reviewed and appear to be correct. Blood pressure elevated. Heart rate normal. Respiratory rate normal. Temperature normal. Oxygen saturation normal. Const General: cooperative, healthy appearing and no acute distress Orientation/consciousness: oriented to person, oriented to place, oriented to time and patient oriented x3 Limitations: no limitations HENMT Head: Yes normocephalic and Yes atraumatic Ears: external ears normal General nose exam: Normal external nose present Mouth: oropharynx normal and moist mucous membranes Throat: Yes uvula midline Eyes Pupils: Equal, round and reactive pupils present Neck Neck: Yes normal visual inspection and Yes supple Resp Effort & Inspection: normal respiratory effort and able to speak in complete sentences Auscultation: clear to auscultation bilaterally Cardio Rate: regular rate Rhythm: regular rhythm Heart sounds: S1 normal heart sound present and S2 normal heart sound present GI Palpation (GI): Soft to palpation and nontender Auscultation: normoactive bowel sounds General: Yes no CVA tenderness Back/Spine/Pelvis Back: no CVA tenderness Skin General skin exam: elasticity normal and turgor normal Neuro General: oriented to person, oriented to place, oriented to time, patient oriented x3, moves all extremities, no focal motor deficits and CN's II-XI intact bilaterally Cranial nerves: Yes Equal, round and reactive pupils present Cognition (Neuro): normal cognition Extrem General: Yes full ROM, Yes no pedal edema and Yes no calf tenderness Right upper extremity: normal to inspection; ROM limited (baseline weakness from prior CVA) Psych Mental Status: mental status grossly normal Affect: normal affect Thought process: Normal thought process present Medications Administered Discontinued Medications Generic Name Dose Route Start Last Admin Trade Name Radha PRN Reason Stop Dose Admin Aspirin 324 mg 08/26/23 08:25 08/26/23 08:42 Aspirin 81 Mg Tab.Chew PO 08/26/23 08:26 324 mg ONCE ONE Administration Iohexol 65 ml 08/26/23 10:57 08/26/23 10:58 Iohexol 350 Mg/Ml 100 Ml Infus..Btl IV 08/26/23 10:58 65 ml ONCE ONE Administration Ondansetron HCl 4 mg 08/26/23 08:25 08/26/23 08:42 Ondansetron Odt 4 Mg Tab.Rapdis TRANSLINGU 08/26/23 08:26 4 mg ONCE ONE Administration Oxycodone HCl 5 mg 08/26/23 08:25 08/26/23 08:42 Oxycodone Hcl Immed Release 5 Mg Tablet PO 08/26/23 08:26 5 mg ONCE ONE Administration Medical Decision Making Medical Decision Making [facility] Narrative: Patient is a 48-year-old female with history of CVA in 2020 on Xarelto, HTN, IBS, KAYODE, Crohn's disease, anxiety and depression, bipolar disorder presenting to the emergency department with complaint chest pain since 8:00 p.m. last night. On exam patient is awake, A+Ox3, VS WNL, afebrile, nontoxic appearing, physical exam findings as above. Given reported symptoms and physical exam findings, initial differential includes ACS/NSTEMI, pneumonia, musculoskeletal pain, GERD. Less likely PE as patient anticoagulated but will obtain D-dimer. Do not suspect aortic dissection, tamponade, endocarditis, pericarditis. Labs notable for no leukocytosis, no anemia, negative troponin, no significant electrolyte abnormalities. Will obtain repeat troponin in 3 hrs. X-ray chest unremarkable. My interpretation is in agreement with the radiologist's interpretation. D-dimer elevated so CTA chest ordered which was negative for PE. Repeat troponin negative. HEART score 2. Patient complains of ongoing pain despite oxycodone. Case discussed with Dr. Campuzano who feels patient is stable for discharge home. THANIA CAMPBLEL reviewed. Discussed pain management with Tylenol and will prescribe topical lidocaine patches. Return precautions discussed at bedside. Instructed patient to follow-up with primary care provider. Patient verbalized understanding of and agreement with plan. Differential Diagnosis Differential Diagnoses: The differential diagnosis associated with the presentation includes As per MDM. Admission/Observation Consideration of admission/observation: Escalation of care including admission/observation considered Given concern for ACS, PE considered initially Lab Data [facility] Lab Attestation statement: I reviewed the patient's lab results. As per MDM. 08/26/23 07:47 08/26/23 07:47 Labs: Lab Results 08/26/23 08/26/23 Range/Units 07:47 09:21 WBC 6.1 (4.8-10.8) X10*3/uL RBC 4.45 (4.20-5.50) X10*6/uL Hgb 12.3 (12.0-16.0) g/dl Hct 36.9 L (37.0-47.0) % MCV 82.9 (80.0-98.0) fL MCH 27.6 (27.0-33.0) pg MCHC 33.3 (31.0-35.0) g/dl RDW 14.9 (11.0-16.0) % Plt Count 261 (160-400) X10*3/uL MPV 11.4 (9.4-12.3) fL Immature Gran % (Auto) 0.3 (0.0-0.4) % Neut % (Auto) 60.9 (45-73) % Lymph % (Auto) 31.3 (20-40) % [place] % (Auto) 5.7 (2-11) % Eos % (Auto) 0.8 (0-4) % Baso % (Auto) 1.0 (0-2) % Lymph # (Auto) 1.9 (1.2-4.9) X10*3/uL [place] # (Auto) 0.4 (0.1-1.2) X10*3/uL Eos # (Auto) 0.1 (0.0-0.4) X10*3/uL Baso # (Auto) 0.1 (0.0-0.2) X10*3/uL Abs Immat Gran (auto) 0.02 (0.00-0.03) X10*3/uL Absolute Neuts (auto) 3.7 (2.0-8.3) x10*3/uL Absolute Nucleated RBC 0.000 (0.0-0.012) X10*3/uL Nucleated RBC % (auto) 0.0 (0.0-0.2) /100WBC PT 11.0 L (11.1-13.3) SEC INR 0.9 (0.9-1.1) D-Dimer High Sensitivty 338 NG/ML Sodium 133 L (135-145) mmol/L Potassium 4.0 D (3.3-5.1) mmol/L Chloride 104 (96-108) mmol/L Carbon Dioxide 20 L (22-29) mmol/L Anion Gap 13 (12-20) BUN 9 (9-16) mg/dL Creatinine 0.97 (0.5-1.4) mg/dL Estim Creat Clear Calc 67.5 Estimated GFR > 60 Random Glucose 95 (60-115) mg/dL Calcium 9.1 (8.4-10.2) mg/dL Troponin I High Sens < 2.7 < 2.7 (<3.5-17.0) ng/L Independent Interpretation I performed an independent interpretation of an: EKG, Plain X-Ray and CT Scan Interpretation: EKG: Normal sinus rhythm, rate 71 bpm, normal MS interval, no evidence of STEMI CXR: unremarkable CTA: No PE Radiology Impression Discussion of test interpretation with radiology: I have reviewed the radiologist's reading. Radiologist Impression: XR/XR chest 2V IMPRESSION: Unremarkable examination. CT/CT angio chest PE protocol IMPRESSION: No CT evidence of pulmonary thromboembolism. VTE: Negative External Record Review External record reviewed: Inpatient record, Office record and Outpatient record Prescription Management I considered prescription management with: Pain Medication Scores Heart Score History: -0- slightly suspicious ECG: -0- normal Age: -1- >45 - <65 Risk factory: -1- 1 or 2 risk factors Troponin: -0- < or = normal limit Score: 2 Risk: 1.7% Discharge Plan Discharge Clinical Impression: Chest pain Qualifiers: Chest pain type: unspecified Qualified Code(s): R07.9 - Chest pain, unspecified Patient Disposition: Home, Self-Care Instructions: Chest Pain (DC) Additional Instructions: You were evaluated in the emergency department today for chest pain. Your evaluation has shown no signs of medical conditions requiring emergent intervention at this time, however we recommend that you follow-up with your primary care physician or your typesetting supervisor as soon as possible for further testing as an outpatient. Please schedule an appointment for follow-up with your primary care physician as soon as possible. Return to the emergency department if you experience worsening or uncontrolled chest pain, shortness of breath, lightheadedness, feeling faint, loss of consciousness, nausea, vomiting, or any other concerning symptoms. You are being prescribed topical lidocaine patches which you can wear for up to 12 hours in a 24 hour period, do not apply heat directly over the patches. Prescriptions: New lidocaine 5 % adhesive patch,medicated 1 patch topical DAILY Qty: 15 0RF Rx Instructions: leave on most painful area for up to 12 hrs No Action omeprazole 40 mg capsule,delayed release(DR/EC) 40 mg PO DAILY Qty: 30 3RF Hold Instructions: Doctor's Order quetiapine 400 mg tablet 1 tab PO BEDTIME cyclobenzaprine 10 mg tablet 10 mg PO BEDTIME PRN (Reason: muscle spasm) Qty: 10 0RF oxycodone 5 mg tablet 5 mg PO Q8H PRN (Reason: pain) Qty: 10 0RF Rx Instructions: Partial Fill upon patient request. Xarelto 20 mg tablet 20 mg PO BEDTIME topiramate 50 mg tablet 50 mg PO DAILY amlodipine 5 mg tablet 5 mg PO DAILY tizanidine 4 mg tablet 4 mg PO TID PRN (Reason: Pain) loperamide 2 mg capsule 0 mg PO lamotrigine 200 mg tablet 200 mg PO BEDTIME lamotrigine 150 mg tablet 150 mg PO DAILY@0730 aspirin 81 mg tablet,delayed release (DR/EC) 81 mg PO DAILY clonazepam 1 mg tablet 0.5 mg PO TID ferrous sulfate 325 mg (65 mg iron) tablet,delayed release (DR/EC) 325 mg PO DAILY Ubrelvy 100 mg tablet 100 mg PO PRN (Reason: Headache) duloxetine 60 mg capsule,delayed release(DR/EC) 60 mg PO BID meclizine 25 mg tablet 25 mg PO DAILY PRN acetaminophen 650 mg tablet extended release 0 mg PO clonazepam 0.5 mg tablet 0.5 mg PO TID PRN loperamide [Anti-Diarrheal (loperamide)] 2 mg capsule 2 mg PO Q6H PRN (Reason: loose stool) Qty: 10 0RF pantoprazole 20 mg tablet,delayed release (DR/EC) 20 mg PO BID 14 Days Qty: 28 0RF hyoscyamine sulfate [Levsin/SL] 0.125 mg tablet, sublingual 0.125 mg PO QID Qty: 90 1RF
[2023-08-26 08:21] VITALS: BP 168/93; PULSE 71; RESP 18; O2SAT 100
--- NOTE | 2023-08-26 08:22 | PC.NURSE ---
pt ia alert and oriented, skin appropriate for ethnicity, respirations even and unlabored, ls clear, pt reports having midsternal chest pressure that travels towards the left side of chest since last night, nausea and headache, denies cough and fevers, vs stable and ns on the monitor
[2023-08-26] MEDS: oxyCODONE HCl Immed Release 5 MG TABLET PO (08:42)
[2023-08-26] MEDS: Ondansetron ODT 4 MG TAB.RAPDIS TRANSLINGU (08:42)
[2023-08-26] MEDS: Aspirin 81 MG TAB.CHEW 324 MG PO (08:42)
[2023-08-26 09:32] LABS: INTERNATIONAL NORM RATIO 0.9 (0.9-1.1)
[2023-08-26 09:34] LABS: D Dimer High Sensitivity 338 NG/ML
[2023-08-26 09:46] LABS: Troponin-I High Sensitivity < 2.7 ng/L (<3.5-17.0)
--- NOTE | 2023-08-26 10:30 | PC.NURSE ---
pt reports no improvement in pain after the medications
[2023-08-26] MEDS: iohexoL 350 MG/ML 100 ML INFUS..BTL 65 ML IV (10:58)
== END 2023-08-26 12:43 | disposition home or self-care (01) ==
PROVIDERS: Registered Nurse Emergency; Emergency Provider Emergency Medicine Emergency Medical Services; PCP Internal Medicine
DX: R07.89 Other chest pain (principal); R11.2 Nausea with vomiting, unspecified; Z79.899 Other long term (current) drug therapy
CPT/HCPCS: 36415; 71046; 71275; 80048; 84484; 85025; 85379; 85610; 93005; 99284; Q9967

== ENCOUNTER 2023-10-10 08:33 | Emergency (ER) | payer OTHER, SELFPAY ==
--- NOTE | ~2023-10-10 | XR_ITS ---
EXAMINATION: XR CHEST CLINICAL INFORMATION: Shortness of breath COMPARISON: 08/26/2023 TECHNIQUE: 2 views of the chest were obtained. FINDINGS: No acute finding. Lung mauro are felt to be grossly clear. No infiltrate. There is no effusion. The cardiac silhouette is felt to be comparable. The hilar regions are comparable. Not felt to be enlarged. XR/XR chest 2V IMPRESSION: No acute finding.
[2023-10-10 08:37] VITALS: BP 134/91; PULSE 97; RESP 22; TEMP 36.4; O2SAT 100; BMI 39.9
--- NOTE | 2023-10-10 08:40 | ECG_ITS ---
Test Reason : CHEST TIGHTNESS Blood Pressure : / mmHG Vent. Rate : 089 BPM Atrial Rate : 089 BPM P-R Int : 154 ms QRS Dur : 076 ms QT Int : 382 ms P-R-T Axes : 034 017 013 degrees QTc Int : 464 ms Normal sinus rhythm Normal ECG When compared with ECG of 26-AUG-2023 07:36, No significant change was found Referred By: Generic ED Physician Electronically Signed By:YISSEL TRONCOSO MD
--- NOTE | 2023-10-10 08:56 | PC.NURSE ---
patient a&ox3, ekg performed, swabs obtained, pt placed in room and was updated on the wait for a provider to see them.
[2023-10-10 09:28] LABS: Influenza A PCR NEGATIVE (Negative); Influenza B PCR NEGATIVE (Negative); Resp Syncy Virus RNA Qual PCR NEGATIVE (Negative); SARS COV2 PCR INHOUSE NEGATIVE (Negative)
--- NOTE | 2023-10-10 09:51 | ED.URI ---
HPI - URI/Sore Throat General Chief Complaint: Upper Respiratory Symptoms Stated Complaint: SOB/ chest tightness Time Seen by Provider: 10/10/23 09:05 Source: patient Mode of arrival: ambulatory Limitations: no limitations History of Present Illness HPI Narrative: 48-year-old female with a history of Crohn's disease, PE on Xarelto, CVA, hypertension, anxiety, depression, bipolar disorder, fibromyalgia presents to the ER with complaints of cough, nasal congestion, runny nose, chest tightness, shortness of breath for the last 2 days. Patient denies any recent travel or sick contact. No fevers, chills, abdominal pain, vomiting, diarrhea, neck pain, neck stiffness, leg swelling or leg pain. She reports that she has been compliant with her Xarelto with no missed doses. Related Data Home Medications Medication Instructions Recorded Confirmed amlodipine 5 mg tablet 5 mg PO DAILY 03/12/21 01/15/23 aspirin 81 mg tablet,delayed 81 mg PO DAILY 03/12/21 01/20/23 release lamotrigine 150 mg tablet 150 mg PO DAILY@0730 03/12/21 01/15/23 lamotrigine 200 mg tablet 200 mg PO BEDTIME 03/12/21 01/15/23 loperamide 2 mg capsule 0 mg PO 03/12/21 tizanidine 4 mg tablet 4 mg PO TID PRN Pain 03/12/21 01/15/23 rivaroxaban 20 mg tablet 20 mg PO BEDTIME 05/07/21 01/20/23 topiramate 50 mg tablet 50 mg PO DAILY 05/07/21 01/15/23 duloxetine 60 mg capsule,delayed 60 mg PO BID 06/20/22 01/15/23 release ferrous sulfate 325 mg (65 mg 325 mg PO DAILY 06/20/22 01/20/23 iron) tablet,delayed release ubrogepant 100 mg tablet (Ubrelvy) 100 mg PO PRN Headache 06/20/22 quetiapine 400 mg tablet 1 tab PO BEDTIME 01/15/23 01/15/23 acetaminophen 650 mg 0 mg PO 02/06/23 tablet,extended release clonazepam 0.5 mg tablet 0.5 mg PO TID PRN 02/06/23 clonazepam 1 mg tablet 0.5 mg PO TID Anxiety 02/06/23 meclizine 25 mg tablet 25 mg PO DAILY PRN 02/06/23 Previous Rx's Medication Instructions Recorded loperamide 2 mg capsule 2 mg PO Q6H PRN loose stool #10 02/06/23 (Anti-Diarrheal (loperamide)) caps pantoprazole 20 mg tablet,delayed 20 mg PO BID 2 weeks #28 tabs 02/06/23 release omeprazole 40 mg capsule,delayed 40 mg PO DAILY #30 caps 03/30/23 release cyclobenzaprine 10 mg tablet 10 mg PO BEDTIME PRN muscle spasm 05/28/23 #10 tabs oxycodone 5 mg tablet 5 mg PO Q8H PRN pain #10 tabs 05/28/23 hyoscyamine sulfate 0.125 mg 0.125 mg PO QID #90 tabs 06/29/23 sublingual tablet (Levsin/SL) lidocaine 5 % topical patch 1 patch topical DAILY #15 ea 08/26/23 Allergies Allergy/AdvReac Type Severity Reaction Status Date / Time apixaban [From Eliquis] Allergy Intermediate Itching, Verified 10/10/23 08:40 rash prednisone Allergy Mild Unknown Verified 10/10/23 08:40 Review of Systems Review of Systems: Yes all other systems are reviewed and are negative Constitutional: Constitutional: Reports no additional constitutional complaints, Denies body ache(s), Denies chills, Denies fever(s), Denies headache(s) and Denies weakness Eyes: Eyes: Reports no additional eye complaints and Denies change in vision ENT: Reports system reviewed and no additional complaints, except as documented, Denies dizziness, Denies headache(s), Reports nasal congestion, Reports nasal discharge and Denies neck pain Cardiovascular: Cardiovascular: Reports no additional cardiovascular complaints, Reports chest pain, Denies leg edema and Reports dyspnea Respiratory: Respiratory: Reports no additional respiratory complaints, Reports cough and Reports dyspnea Gastrointestinal: Gastrointestinal: Reports no additional gastrointestinal complaints, Denies abdominal pain, Denies diarrhea, Denies nausea and Denies vomiting Genitourinary: Genitourinary: Reports no additional female genitourinary complaints and Denies urinary incontinence Musculoskeletal: Musculoskeletal: Reports no additional musculoskeletal complaints, Denies back pain, Denies arthralgias, Denies joint swelling, Denies neck pain, Denies numbness and Denies tingling Integumentary/Breasts: Skin/Breast: Reports system reviewed and no additional complaints, except as docu and Denies rash Neurologic: Reports system reviewed and no additional complaints, except as documented, Denies Abnormal speech present, Denies dizziness, Denies headache(s), Denies numbness, Denies tingling and Denies weakness PMFSH Past Medical History Attestation statement: The following information was validated with the patient. Source: old records reviewed and nursing notes reviewed Medical History Crohn disease Anxiety and depression History of CVA (cerebrovascular accident) On anticoagulant therapy Vitamin D deficiency KAYODE (obstructive sleep apnea) LOC (loss of consciousness) Migraine IBS (irritable bowel syndrome) Fibromyalgia Chronic depression Bipolar disorder HTN (hypertension) Anxiety H/O blood clots H/O stroke within last year Surgical History Hx of tubal ligation History of Hx of cholecystectomy Hx of endoscopy History of colonoscopy Family History Family History Father Hx of type 1 diabetes mellitus History of high cholesterol Mother Family history of high blood pressure Social History Social History Household Members: None Household Members Other:: mother Are you a primary resident care provider to a significant other at home: No Do you presently have visiting nurse or other home services: No Alcohol intake: never Patient Tobacco Use Status: Never used Tobacco Advance Directives: No Advance Directives Information Provided: No Current occupational status: disabled Physical Exam Vital Signs: Vital Signs: Last Vital Signs Temp 97.6 F 10/10/23 08:37 Pulse 56 10/10/23 09:58 Resp 16 10/10/23 09:58 BP 134/91 H 10/10/23 08:37 Pulse Ox 100 10/10/23 08:37 O2 Del Method Room Air 10/10/23 08:37 BMI result Body Mass Index 39.9 Const: General: cooperative, healthy appearing, comfortable and no acute distress Orientation/consciousness: patient oriented x3 Limitations: no limitations HEENT: Head: Yes normal to inspection Ears: hearing grossly normal bilaterally and TM abnormal bulging; not erythematous General nose exam: Normal external nose present and Nasal discharge present Face and sinus: Yes normal facial exam Mouth: Normal oral and palatal mucosa present Throat: Yes posterior oropharynx normal, Yes tonsils normal and Yes uvula midline Eyes: General: appearance normal, both eyes and all related structures Pupils: Equal, round and reactive pupils present Neck: Neck: Yes normal visual inspection, Yes full ROM, Yes no lymphadenopathy and Yes no meningeal signs Chest: Chest palpation & inspection: normal inspection of the chest Resp: Other: Mild expiratory wheeze Effort & Inspection: normal respiratory effort Cardio: Rate: regular rate Rhythm: regular rhythm Peripheral pulses: Peripheral pulses 2+ throughout GI: Inspection: Yes normal to inspection Palpation (GI): Soft to palpation and nontender Auscultation: normal bowel sounds Back/Spine/Pelvis: Thoracic/Lumbar Spine: thoracic and lumbar spine normal to inspection Skin: General skin exam: no rashes or lesions noted Neuro: General: patient oriented x3, no meningeal signs, no focal motor deficits and normal sensation to monofilament Cranial nerves: Yes Equal, round and reactive pupils present Cognition (Neuro): normal cognition Speech: No Abnormal speech present Gait exam (Neuro): Normal gait present Motor exam (neuro): 5/5 motor strength present throughout Extrem: General: Yes normal to inspection, Yes no pedal edema and Yes no calf tenderness Medications Administered Discontinued Medications Generic Name Dose Route Start Last Admin Trade Name Freq PRN Reason Stop Dose Admin Albuterol Sulfate 2 puff 10/10/23 09:47 10/10/23 09:57 Albuterol Sulfate 90 Mcg 8 Gm Inhaler INHALE 10/10/23 09:48 2 puff ONCE ONE Administration Medical Decision Making Medical Decision Making [facility] Narrative: 48-year-old female with a history of Crohn's disease, PE on Xarelto, CVA, hypertension, anxiety, depression, bipolar disorder, fibromyalgia presents to the ER with complaints of cough, nasal congestion, runny nose, chest tightness, shortness of breath for the last 2 days. Patient denies any recent travel or sick contact. No fevers, chills, abdominal pain, vomiting, diarrhea, neck pain, neck stiffness, leg swelling or leg pain. She reports that she has been compliant with her Xarelto with no missed doses. on arrival vitals are stable. Patient has mild expiratory wheezing, bilateral TM effusion, +nasal discharge with nasal turbinate erythema most c/w with URI. will send testing for flu, COVID, RSV patient had x-ray and EKG ordered from triage which I will review will give albuterol MDI Differential Diagnosis Differential Diagnoses: The differential diagnosis associated with the presentation includes viral syndrome, influenza low concern for pneumonia, PE as patient is compliant with Xarelto with no missed doses, ACS (atypical HPI) Admission/Observation Consideration of admission/observation: Escalation of care including admission/observation considered no hypoxia or tachypnea, patient well-appearing, likely viral upper respiratory infection which can be managed with supportive care at home Lab Data MDM Lab Attestation statement: I reviewed the patient's lab results. testing for flu, COVID, RSV are negative Labs: Lab Results 10/10/23 Range/Units 08:47 Influenza Type A (PCR) NEGATIVE (Negative) Influenza Type B (PCR) NEGATIVE (Negative) RSV RNA Qual (PCR) NEGATIVE (Negative) SARS-CoV-2 RNA (RT-PCR) NEGATIVE (Negative) Independent Interpretation I performed an independent interpretation of an: EKG and Plain X-Ray Interpretation: I independently reviewed the chest x-ray and agree with Radiology report I independently reviewed the EKG which shows normal sinus rhythm with a rate 89, normal NC, normal QRS, normal QT Radiology Impression Discussion of test interpretation with radiology: I have reviewed the radiologist's reading. Radiologist Impression: [place] [id number] XRay Report Signed Patient: Melinda Martini MR#: [id number] : 1975 Acct:[id number] Age/Sex: 48 / F ADM Date: 10/10/23 Loc: .ED Attending Dr: Ordering Physician: Generic ED Physician Date of Service: 10/10/23 Procedure(s): XR chest 2V Accession Number(s): [id number] cc: GALLO HARRIS MD; Generic ED Physician~ EXAMINATION: XR CHEST CLINICAL INFORMATION: Shortness of breath COMPARISON: 08/26/2023 TECHNIQUE: 2 views of the chest were obtained. FINDINGS: No acute finding. Lung mauro are felt to be grossly clear. No infiltrate. There is no effusion. The cardiac silhouette is felt to be comparable. The hilar regions are comparable. Not felt to be enlarged. XR/XR chest 2V IMPRESSION: No acute finding. Independent Historian Clinical information obtained from an independent historian. History obtained from or confirmed by: Friend Tests considered The following testing was considered but not selected: no need her CTA in a patient who has a known history of PE and is compliant with her Xarelto Prescription Management I considered prescription management with: Antibiotic Discharge Plan Discharge Clinical Impression: Upper respiratory infection Patient Disposition: Home, Self-Care Instructions: Upper Respiratory Infection (ED), Albuterol (By mouth) Additional Instructions: Use the albuterol inhaler 2 puffs every 4 hours as needed Increase fluids, rest Take Tylenol for any pain or fever as needed Return for any worsening symptoms Prescriptions: No Action omeprazole 40 mg capsule,delayed release(DR/EC) 40 mg PO DAILY Qty: 30 3RF Hold Instructions: Doctor's Order quetiapine 400 mg tablet 1 tab PO BEDTIME lidocaine 5 % adhesive patch,medicated 1 patch topical DAILY Qty: 15 0RF Rx Instructions: leave on most painful area for up to 12 hrs cyclobenzaprine 10 mg tablet 10 mg PO BEDTIME PRN (Reason: muscle spasm) Qty: 10 0RF oxycodone 5 mg tablet 5 mg PO Q8H PRN (Reason: pain) Qty: 10 0RF Rx Instructions: Partial Fill upon patient request. Xarelto 20 mg tablet 20 mg PO BEDTIME topiramate 50 mg tablet 50 mg PO DAILY amlodipine 5 mg tablet 5 mg PO DAILY tizanidine 4 mg tablet 4 mg PO TID PRN (Reason: Pain) loperamide 2 mg capsule 0 mg PO lamotrigine 200 mg tablet 200 mg PO BEDTIME lamotrigine 150 mg tablet 150 mg PO DAILY@0730 aspirin 81 mg tablet,delayed release (DR/EC) 81 mg PO DAILY clonazepam 1 mg tablet 0.5 mg PO TID ferrous sulfate 325 mg (65 mg iron) tablet,delayed release (DR/EC) 325 mg PO DAILY Ubrelvy 100 mg tablet 100 mg PO PRN (Reason: Headache) duloxetine 60 mg capsule,delayed release(DR/EC) 60 mg PO BID meclizine 25 mg tablet 25 mg PO DAILY PRN acetaminophen 650 mg tablet extended release 0 mg PO clonazepam 0.5 mg tablet 0.5 mg PO TID PRN loperamide [Anti-Diarrheal (loperamide)] 2 mg capsule 2 mg PO Q6H PRN (Reason: loose stool) Qty: 10 0RF pantoprazole 20 mg tablet,delayed release (DR/EC) 20 mg PO BID 14 Days Qty: 28 0RF hyoscyamine sulfate [Levsin/SL] 0.125 mg tablet, sublingual 0.125 mg PO QID Qty: 90 1RF Referrals: Gallo Harris MD [Primary Care Provider] - 1 week (as needed)
--- NOTE | 2023-10-10 09:54 | PC.NURSE ---
rt called for updraft, pt a&ox3, lungs diminished throughout
[2023-10-10] MEDS: Albuterol Sulfate 90 MCG 8 GM INHALER 2 PUFF INHALE (09:57)
[2023-10-10 09:58] VITALS: PULSE 56; RESP 16; O2SAT 98
== END 2023-10-10 10:41 | disposition home or self-care (01) ==
PROVIDERS: Emergency Provider Emergency Medicine; PCP Internal Medicine
DX: J06.9 Acute upper respiratory infection, unspecified (principal); Z20.822 Contact with and (suspected) exposure to COVID-19; Z20.828 Contact with and (suspected) exposure to other viral communicable diseases; R05.9 Cough, unspecified; R06.02 Shortness of breath
CPT/HCPCS: 0241U; 71046; 93005; 94640; 99284

== ENCOUNTER → 2023-10-10 08:40 | Outpatient (BNV) | payer OTHER, SELFPAY | PROVIDERS: Emergency Provider Emergency Medicine; PCP Internal Medicine; Visit Provider Internal Medicine Cardiovascular Disease | DX: R07.89 Other chest pain (principal) | CPT/HCPCS: 93010 ==

== ENCOUNTER 2023-10-19 10:03 | Outpatient (AMB) | payer OTHER, SELFPAY ==
--- NOTE | 2023-10-19 10:08 | A.OFFVIS_ITS ---
Intake Vital Signs 10/19/23 10:10 Height 4 ft 11 in Weight 194 lb 0.108 oz BMI 39.2 Blood Pressure Location Lt brachial Position Sitting Intake Visit Reasons: 4 month follow up Intake Note: Melinda presents in the office as a 4 month follow up. CC: She states she had a uterus Bx done recently. No GI concerns at this time. Allergies apixaban [From Eliquis] Allergy (Intermediate, Verified 10/19/23 10:13) Itching, rash prednisone Allergy (Mild, Verified 10/19/23 10:13) Unknown HPI 4 month follow up HPI Details 48 yr old f here for f/u RECAP: ? I saw her at [facility] and she was eventually dx with suspected remitting and relapsing crohns and put on humira ? now she is c/o diffuse abdominal pain for 1-2 months, cramping ? not the same as her prior pains ? worse w passing gas and stool ? stool is soft and comes out easy ? she does have nausea for 1.5 wks and chills for 2 weeks ? she denies sore throat or fever, no cough ? appetite is fair ? weight is going down 212-->#193 ? not taking narcs, ? she is taking ibuprofen 250 mg q 6 hrs for 1 week ? she is taking omeprazole 20 mg once a day ? she feels humira works well for 1 week but following week pain returns uintil she gets her injection following week ADA level was ok, sx improved so we held on increasing humira in the interim she was evaluated by hematology due to thromboembolic events incl CVA, PTE she is on xarelto, pending further thrombotic w/u she was losing weight 55# over 2 months she has been taking humira as prescribed apparently she is b12 def and been on replacement humira levels were good with no Ab she was placed on entyvio when I saw her last she had not had entyvio for >6 months or so TESTS: ? MR enterogram 02/2020--essentially normal ? labs 04/2020 ? fecal calprotectin--neg ? ADA level 7.8, no AB ? LFt nml bubble study at [facility] --neg per heme report EGD/colo: 01/20/23 Endoscopy Findings: schatzki ring hiatal hernia lax LES Colonoscopy Findings: internal hemorrhoids PATH: A.? Duodenum, biopsy:? Duodenal mucosa within normal limits. B.? Stomach, biopsy: - Antral-type mucosa with moderate chron ic active inflammation. - Positive for H pylori. C.? GE junction, biopsy: - Cardiac-type mucosa with moderate cyber transport systems specialist melani inactive inflammation; no intestinal metaplasia seen. - Squamous mucosa within normal limits. D.? Esophagus, distal, biopsy:? Squamous epithelium within normal limits; no inflammation seen. E.? Terminal ileum, biopsy:? Small intestinal mucosa within normal limits. F. ? Colon, right, biopsy:? Colonic mucosa within normal limits. G.? Colon, transverse and left, biopsy:? Colonic mucosa within normal limits. H.? Rectum, biopsy:? Rectal mucosa within normal limits. ? 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 VITAL SIGNS:see workflow HEENT: Nonicteric sclerae, PERRLA, EOMI. Oropharynx clear. Moist mucous membranes. Conjunctivae appear well perfused. No thyroid mass. CHEST: Chest wall is nontender. HEART: Regular rate and rhythm without murmurs. LUNGS: Clear to auscultation bilaterally. ABDOMEN: Soft, positive bowel sounds, nontender, no organomegaly.no flank tenderness SKIN: No rash, no excessive bruising, petechiae, or purpura. NEUROLOGIC: Cranial nerves II-XII intact without motor/sensory deficit. psych; normal Assessment & Plan (1) Crohn's disease- mild sx, she missed entyvio due to hospital admission and not had it for months now, colonoscopy was neg for inflammation in TI and colon and she seems to be in clinical remission 2/ thromboembolic events, no obvious tri gger, undergoing w/u, IBD is a hypercoaguable state and can predispose to clots 3/? has anemia whilst on NOAC, ? mucosal bleeding from active crohns--seems to have resolved 4/ h pylori, PLAN: 1/ Cte --if pos then restart entyvio, if neg then cont to monitor 2/routine labs 3/ h pylori test after being 2 weeks off PPI PFSH Medical History Crohn disease Anxiety and depression History of CVA (cerebrovascular accident) On anticoagulant therapy Vitamin D deficiency KAYODE (obstructive sleep apnea) LOC (loss of consciousness) Migraine IBS (irritable bowel syndrome) Fibromyalgia Chronic depression Bipolar disorder HTN (hypertension) Anxiety H/O blood clots H/O stroke within last year Surgical History Hx of tubal ligation History of Hx of cholecystectomy Hx of endoscopy History of colonoscopy Family History Father Hx of type 1 diabetes mellitus History of high cholesterol Mother Family history of high blood pressure Social History Household Members: None Household Members Other:: mother Are you a primary adult live in caregiver to a significant other at home: No Do you presently have visiting nurse or other home services: No Alcohol intake: never Patient Tobacco Use Status: Never used Tobacco Current occupational status: disabled Physical Exam Vital Signs: BMI result Body Mass Index 39.2 Assessment & Plan Assessment & Plan (1) Crohn's disease: Code(s): K50.90 - Crohn's disease, unspecified, without complications Plan: PLAN: 1/ Cte --if pos then restart entyvio, if neg then cont to monitor 2/routine labs 3/ h pylori test after being 2 weeks off PPI (2) Crohn's disease in remission: Code(s): K50.90 - Crohn's disease, unspecified, without complications Plan: PLAN: 1/ Cte --if pos then restart entyvio, if neg then cont to monitor 2/routine labs 3/ h pylori test after being 2 weeks off PPI Orders: Orders Complete Blood Count Auto Diff Today K50.90 - Crohn's disease, unspecified, without complications CT enterography Today K50.90 - Crohn's disease, unspecified, without complications, R10.33 - Periumbilical pain C Reactive Protein Today K50.90 - Crohn's disease, unspecified, without complica tions Comprehensive Met. Panel Today K50.90 - Crohn's disease, unspecified, without complications, K75.81 - Nonalcoholic steatohepatitis (GUERRIER) Lactoferrin, Fecal, Quant. Today K50.90 - Crohn's disease, unspecified, without complications, K51.50 - Left sided colitis without complications Coding Level of Care Code Est Pt Level 3 (32007) Diagnoses Crohn's disease K50.90 Crohn's disease in remission K50.90
[2023-10-19 10:10] VITALS: BMI 39.2
== END 2023-10-19 11:05 | disposition home or self-care (01) ==
PROVIDERS: PCP Internal Medicine; Visit Provider Internal Medicine Gastroenterology
DX: K50.90 Crohn's disease, unspecified, without complications (principal)
CPT/HCPCS: 99213

== ENCOUNTER 2023-10-19 10:03 | Outpatient (REF) | payer OTHER, SELFPAY ==
[2023-10-19 10:59] LABS: MANUAL DIFF FLAG NO
[2023-10-19 12:39] LABS: Basophils Absolute Auto 0.1 X10*3/uL (0.0-0.2); Basophils Percent Auto 1.1 % (0-2); Eosinophils Absolute Auto 0.1 X10*3/uL (0.0-0.4); Eosinophils Percent Auto 1.1 % (0-4); Hematocrit 40.7 % (37.0-47.0); Hemoglobin 13.2 g/dl (12.0-16.0); Imm Gran Abs Auto 0.05 X10*3/uL (0.00-0.03); Imm Gran Pct Auto 0.6 % (0.0-0.4); Lymphocytes Absolute Auto 2.6 X10*3/uL (1.2-4.9); Lymphocytes Percent Auto 29.6 % (20-40); Mean Corpuscular HGB Conc 32.4 g/dl (31.0-35.0); Mean Corpuscular Hemoglobin 27.5 pg (27.0-33.0); Mean Corpuscular Volume 84.8 fL (80.0-98.0); Mean Platelet Volume 11.8 fL (9.4-12.3); Monocytes Absolute Auto 0.5 X10*3/uL (0.1-1.2); Monocytes Percent Auto 5.1 % (2-11); Neutrophils Absolute Auto 5.5 x10*3/uL (2.0-8.3); Neutrophils Percent Auto 62.5 % (45-73); Platelet Count 415 X10*3/uL (160-400); Red Cell Distribution Width 14.6 % (11.0-16.0); White Blood Count 8.8 X10*3/uL (4.8-10.8)
[2023-10-19 13:24] LABS: Alanine Aminotransferase 10 U/L (0-31); Albumin Level 4.3 g/dL (3.5-5.0); Alkaline Phosphatase 144 U/L (39-117); Anion Gap 13 (12-20); Aspartate Amino Transferase 16 U/L (5-31); Bilirubin Total 0.2 mg/dL (0.0-1.0); Blood Urea Nitrogen 8 mg/dL (9-16); C Reactive Protein 0.63 mg/dL (< or = 0.50); Calcium 9.7 mg/dL (8.4-10.2); Carbon Dioxide 25 mmol/L (22-29); Chloride 105 mmol/L (96-108); Estimated Glomerular Filt Rate 57; Glucose Random 110 mg/dL (60-115); Potassium 4.4 mmol/L (3.3-5.1); Sodium 139 mmol/L (135-145); Total Protein 8.2 g/dL (6.5-8.0)
== END 2023-10-19 10:04 | disposition home or self-care (01) ==
LOC: HO.LAB 10:03
PROVIDERS: PCP Internal Medicine; Visit Provider Internal Medicine Gastroenterology
DX: K50.90 Crohn's disease, unspecified, without complications (principal); K75.81 Nonalcoholic steatohepatitis (NASH)
CPT/HCPCS: 36415; 80053; 85025; 86140; 99212

== ENCOUNTER 2023-10-20 07:34 | Outpatient (REF) | payer OTHER, SELFPAY ==
[2023-10-24 00:53] LABS: Lactoferrin, Fecal, Quant. <6.25 mcg/mL (<7.25)
== END 2023-10-20 07:35 | disposition home or self-care (01) ==
LOC: HO.LNP 07:34
PROVIDERS: Visit Provider Internal Medicine Gastroenterology
DX: K51.50 Left sided colitis without complications (principal)
CPT/HCPCS: 83631

== ENCOUNTER 2023-11-04 08:07 | Outpatient (REF) | payer OTHER, SELFPAY ==
[2023-11-05 11:46] LABS: H Pylori Breath Test Negative (Negative)
== END 2023-11-04 08:08 | disposition home or self-care (01) ==
LOC: HO.LNP 08:07
PROVIDERS: PCP Internal Medicine; Visit Provider Internal Medicine Gastroenterology
DX: Z11.2 Encounter for screening for other bacterial diseases (principal)
CPT/HCPCS: 83013; 99211

== ENCOUNTER 2023-11-04 08:48 | Emergency (ER) | payer OTHER, SELFPAY ==
--- NOTE | ~2023-11-04 | XR_ITS ---
EXAMINATION: XR CHEST CLINICAL INFORMATION: Cough COMPARISON: Chest 10/10/2023 TECHNIQUE: 2 views of the chest were obtained. 10:37 AM FINDINGS: Chest leads are seen over the chest. Lung volumes are low. No focal consolidation, interstitial pulmonary edema or pneumothorax. No pleural effusion. The cardiomediastinal silhouette is within normal limits. No acute osseous abnormalities appreciated. XR/XR chest 2V IMPRESSION: No acute cardiopulmonary disease.
[2023-11-04 08:55] VITALS: BP 154/90; PULSE 86; RESP 18; TEMP 36.2; O2SAT 99; BMI 40.0
--- NOTE | 2023-11-04 08:58 | ECG_ITS ---
Test Reason : cp Blood Pressure : / mmHG Vent. Rate : 084 BPM Atrial Rate : 084 BPM P-R Int : 152 ms QRS Dur : 078 ms QT Int : 400 ms P-R-T Axes : 030 011 012 degrees QTc Int : 472 ms Normal sinus rhythm Normal ECG When compared with ECG of 10-OCT-2023 08:45, No significant change was found Referred By: Generic ED Physician Electronically Signed By:RADHA GOMEZ
[2023-11-04 09:11] LABS: MANUAL DIFF FLAG NO
[2023-11-04 09:15] LABS: Basophils Absolute Auto 0.1 X10*3/uL (0.0-0.2); Eosinophils Absolute Auto 0.1 X10*3/uL (0.0-0.4); Eosinophils Percent Auto 2.1 % (0-4); Hematocrit 37.9 % (37.0-47.0); Hemoglobin 12.6 g/dl (12.0-16.0); Imm Gran Abs Auto 0.01 X10*3/uL (0.00-0.03); Imm Gran Pct Auto 0.2 % (0.0-0.4); Lymphocytes Percent Auto 37.9 % (20-40); Mean Corpuscular HGB Conc 33.2 g/dl (31.0-35.0); Mean Corpuscular Hemoglobin 27.9 pg (27.0-33.0); Mean Platelet Volume 11.2 fL (9.4-12.3); Monocytes Absolute Auto 0.3 X10*3/uL (0.1-1.2); Monocytes Percent Auto 5.5 % (2-11); Neutrophils Absolute Auto 2.8 x10*3/uL (2.0-8.3); Neutrophils Percent Auto 53.3 % (45-73); Platelet Count 340 X10*3/uL (160-400); Red Blood Count 4.51 X10*6/uL (4.20-5.50); Red Cell Distribution Width 14.2 % (11.0-16.0); White Blood Count 5.3 X10*3/uL (4.8-10.8)
[2023-11-04 09:27] LABS: Anion Gap 13 (12-20); Blood Urea Nitrogen 11 mg/dL (9-16); Calcium 9.3 mg/dL (8.4-10.2); Carbon Dioxide 25 mmol/L (22-29); Chloride 105 mmol/L (96-108); Creatinine Clr Calc Pharmacy 73.8; Estimated Glomerular Filt Rate > 60; Glucose Random 100 mg/dL (60-115); Potassium 3.5 mmol/L (3.3-5.1); Sodium 139 mmol/L (135-145)
[2023-11-04 09:39] LABS: Troponin-I High Sensitivity < 2.7 ng/L (<3.5-17.0)
--- NOTE | 2023-11-04 10:18 | ED_ITS ---
HPI - Chest Pain General Chief Complaint: Chest Pain Stated Complaint: Difficulty breathing, left shoulder pain Time Seen by Provider: 11/04/23 10:18 Source: patient Mode of arrival: ambulatory Limitations: no limitations History of Present Illness HPI narrative: Patient is a 48 year old assigned female at with a history of crohn's disease presenting to the emergency department today with a headache, chest pain, and SOB. Patient states that she was seen 25 days ago here for a similar event. Patient states that she has a headache, chest pain, and feels like it is difficult to catch her breath. Patient denies any dizziness, lightheadedness, abdominal pain, nausea, vomiting, fever, chills, blurry vision, double vision, loss of vision, back pain, night sweats, pain with urination, increased urinary frequency, increased urinary urgency, blood in her urine or stool, syncope or a near syncopal episode, recent trauma or falls, bowel incontinence, bladder incontinence, bowel retention, bladder retention, or any other complaints at this time. Treatment prior to arrival: none Related Data Home Medications Medication Instructions Recorded Confirmed aspirin 81 mg tablet,delayed 81 mg PO DAILY 03/12/21 01/20/23 release lamotrigine 150 mg tablet 150 mg PO DAILY@0730 03/12/21 01/15/23 lamotrigine 200 mg tablet 200 mg PO BEDTIME 03/12/21 01/15/23 loperamide 2 mg capsule 0 mg PO 03/12/21 tizanidine 4 mg tablet 4 mg PO TID PRN Pain 03/12/21 01/15/23 rivaroxaban 20 mg tablet 20 mg PO BEDTIME 05/07/21 01/20/23 topiramate 50 mg tablet 50 mg PO DAILY 05/07/21 01/15/23 duloxetine 60 mg capsule,delayed 60 mg PO BID 06/20/22 01/15/23 release ubrogepant 100 mg tablet (Ubrelvy) 100 mg PO PRN Headache 06/20/22 quetiapine 400 mg tablet 1 tab PO BEDTIME 01/15/23 01/15/23 acetaminophen 650 mg 0 mg PO 02/06/23 tablet,extended release clonazepam 0.5 mg tablet 0.5 mg PO TID PRN 02/06/23 clonazepam 1 mg tablet 0.5 mg PO TID Anxiety 02/06/23 meclizine 25 mg tablet 25 mg PO DAILY PRN 02/06/23 amlodipine 10 mg tablet 10 mg PO DAILY 10/19/23 cyanocobalamin (vitamin B-12) 2,500 mcg sublingual DAILY 10/19/23 2,500 mcg sublingual tablet (Vitamin B-12) ferrous sulfate 325 mg (65 mg mg PO 10/19/23 iron) tablet (FeroSul) folic acid 1 mg tablet 1 mg PO DAILY 10/19/23 gabapentin 300 mg capsule 300 mg PO TID 10/19/23 loratadine 10 mg tablet 10 mg PO DAILY 10/19/23 ramelteon 8 mg tablet 8 mg PO DAILY 10/19/23 tramadol 50 mg tablet mg PO 10/19/23 Previous Rx's Medication Instructions Recorded loperamide 2 mg capsule 2 mg PO Q6H PRN loose stool #10 02/06/23 (Anti-Diarrheal (loperamide)) caps pantoprazole 20 mg tablet,delayed 20 mg PO BID 2 weeks #28 tabs 02/06/23 release cyclobenzaprine 10 mg tablet 10 mg PO BEDTIME PRN muscle spasm 05/28/23 #10 tabs oxycodone 5 mg tablet 5 mg PO Q8H PRN pain #10 tabs 05/28/23 hyoscyamine sulfate 0.125 mg 0.125 mg PO QID #90 tabs 06/29/23 sublingual tablet (Levsin/SL) lidocaine 5 % topical patch 1 patch topical DAILY #15 ea 08/26/23 Allergies Allergy/AdvReac Type Severity Reaction Status Date / Time apixaban [From Eliis] Allergy Intermediate Itching, Verified 11/04/23 08:55 rash prednisone Allergy Mild Unknown Verified 11/04/23 08:55 Review of Systems 2 Constitutional: Constitutional: Reports no additional constitutional complaints, Denies chills, Denies fever(s), Reports headache(s) and Denies night sweats Eyes: Eyes: Reports no additional eye complaints, Denies blurry vision, Denies change in vision, Denies diplopia, Denies eye discharge, Denies loss of vision and Denies eye pain ENT: Denies dizziness and Reports headache(s) Cardiovascular: Cardiovascular: Reports no additional cardiovascular complaints, Reports chest pain, Denies lightheadedness, Denies Loss of Consciousness and Denies dyspnea Respiratory: Respiratory: Reports no additional respiratory complaints and Denies dyspnea Gastrointestinal: Gastrointestinal: Reports no additional gastrointestinal complaints, Denies abdominal pain, Denies melena, Denies hematochezia, Denies change in bowel habits and Denies change in stool character Genitourinary: Genitourinary: Denies hematuria, Denies urinary frequency, Denies dysuria, Denies urinary incontinence, Denies urinary hesitancy and Denies urinary urgency Musculoskeletal: Musculoskeletal: Reports no additional musculoskeletal complaints, Denies numbness and Denies tingling Neurologic: Denies dizziness, Reports headache(s), Denies loss of vision, Denies numbness and Denies tingling Psychiatric: Psychiatric: Reports no additional psychiatric complaints Endocrine: Endocrine: Reports no additional endocrine complaints Hematologic/Lymphatic: Hematologic/Lymphatic: Reports no additional hematologic/lymphatic complaints Allergic/Immunologic: Allergic/Immunologic: Reports no additional allergic/immunologic complaints PMFSH Past Medical History Attestation statement: The following information was validated with the patient. Source: old records reviewed and nursing notes reviewed Medical History Crohn disease Anxiety and depression History of CVA (cerebrovascular accident) On anticoagulant therapy Vitamin D deficiency KAYODE (obstructive sleep apnea) LOC (loss of consciousness) Migraine IBS (irritable bowel syndrome) Fibromyalgia Chronic depression Bipolar disorder HTN (hypertension) Anxiety H/O blood clots H/O stroke within last year Surgical History Hx of tubal ligation History of Hx of cholecystectomy Hx of endoscopy History of colonoscopy Family History Family History Father Hx of type 1 diabetes mellitus History of high cholesterol Mother Family history of high blood pressure Social History Social History Household Members: None Household Members Other:: mother Are you a primary child care education coordinator to a significant other at home: No Do you presently have visiting nurse or other home services: No Alcohol intake: never Patient Tobacco Use Status: Never used Tobacco Advance Directives: No Advance Directives Information Provided: No Current occupational status: disabled Physical Exam 2 Vital Signs: Vital Signs: Last Vital Signs Temp 97.4 F 11/04/23 10:47 Pulse 86 11/04/23 12:05 Resp 16 11/04/23 12:05 BP 168/97 H 11/04/23 12:05 Pulse Ox 100 11/04/23 12:05 O2 Del Method Room Air 11/04/23 12:05 BMI result Body Mass Index 40.0 Const: General: cooperative, no acute distress, alert and awake Nutritional Appearance: well nourished Orientation/consciousness: patient oriented x3 Limitations: no limitations HEENT: Head: Yes normal to inspection and Yes atraumatic Ears: hearing grossly normal bilaterally and external ears normal General nose exam: Normal external nose present, no nasal discharge noted and no epistaxis Face and sinus: Yes normal facial exam, No abrasion and No laceration Mouth: Normal oral and palatal mucosa present, no drooling and no muffled voice Eyes: General: appearance normal, both eyes and all related structures P eriorbital: periorbital findings normal Eyelids: Yes eyelids normal C onjunctivae: conjunctivae normal Pupils: Equal, round and reactive pupils present EOM: EOMs intact bilaterally Neck: Neck: Yes normal visual inspection, Yes full ROM and Yes no lymphadenopathy Chest: Chest palpation & inspection: normal inspection of the chest Resp: Effort & Inspection: normal respiratory effort and able to speak in complete sentences Auscultation: clear to auscultation bilaterally Cardio: Rate: regular rate Rhythm: regular rhythm GI: Inspection: Yes normal to inspection Neuro: General: patient oriented x3 and moves all extremities Cranial nerves: Yes Equal, round and reactive pupils present Cognition (Neuro): n ormal cognition Motor exam (neuro): 5/5 motor strength present throughout Sensory Exam: Normal double simultaneous stimulation for sensation C oordination: [id number] test normal Extrem: General: Yes normal to inspection, Yes full ROM and Yes capillary refill normal Psych: Appearance: grossly normal Mental Status: mental status grossly normal Affect: normal affect Attitude: cooperative Thought process: N ormal thought process present Thought content: Normal thought content present Insight: Good insight present (Psych) Medications Administered Discontinued Medications Generic Name Dose Route Start Last Admin Trade Name Freq PRN Reason Stop Dose Admin Albuterol Sulfate 4 puff 11/04/23 10:25 11/04/23 10:28 Albuterol Sulfate 90 Mcg 8 Gm Inhaler INHALE 11/04/23 10:26 4 puff ONCE ONE Administration Dexamethasone Sodium Phosphate 10 mg 11/04/23 10:23 11/04/23 10:33 Dexamethasone Sod Phosphate 10 Mg/Ml Vial PO 11/04/23 10:24 10 mg ONCE ONE Administration Diphenhydramine HCl 25 mg 11/04/23 10:23 11/04/23 10:33 Diphenhydramine Hcl 25 Mg Capsule PO 11/04/23 10:24 25 mg ONCE ONE Administration Medical Decision Making Medical Decision Making [facility] Narrative: Patient is a 48 year old assigned female at with a history of Crohn's presenting to the emergency department today with chest pain, headache, and SOB. Patient's physical exam was unremarkable. Patient's blood work was unremarkable. Patient's EKG was unremarkable. Patient's chest x-ray showed no acute process. I explained my physical exam findings as well as all test results to the patient. I answered all questions asked by the patient. I stressed the importance of the patient taking her medication as prescribed. I stressed the importance of the patient following up with her primary care provider. I stressed the importance of the patient returning to the emergency department immediately if her symptoms were to worsen or if she were to develop any dizziness, shortness of breath, difficulty breathing, chest pain, blurry vision, loss of vision, nausea, vomiting, abdominal pain, fever, chills, back pain, or any other complaints. Patient verbalized agreement and understanding with this treatment plan and discharge. Differential Diagnosis Differential Diagnoses: The differential diagnosis associated with the presentation includes Chest pain STEMI NSTEMI Viral illness URI COVID-19 Influenza RSV Admission/Observation Consideration of admission/observation: Escalation of care including admission/observation considered Patient would have been admitted to the hospital had her work up had any findings where hospital admission was appropriate and her clinical presentation warranted hospital admission. Lab Data [facility] Lab Attestation statement: I reviewed the patient's lab results. My interpretation of these studies and their corresponding values is that they are grossly normal. 11/04/23 09:07 11/04/23 09:07 Labs: Lab Results 11/04/23 11/04/23 Range/Units 09:07 10:29 WBC 5.3 (4.8-10.8) X10*3/uL RBC 4.51 (4.20-5.50) X10*6/uL Hgb 12.6 (12.0-16.0) g/dl Hct 37.9 (37.0-47.0) % MCV 84.0 (80.0-98.0) fL MCH 27.9 (27.0-33.0) pg MCHC 33.2 (31.0-35.0) g/dl RDW 14.2 (11.0-16.0) % Plt Count 340 (160-400) X10*3/uL MPV 11.2 (9.4-12.3) fL Immature Gran % (Auto) 0.2 (0.0-0.4) % Neut % (Auto) 53.3 (45-73) % Lymph % (Auto) 37.9 (20-40) % [place] % (Auto) 5.5 (2-11) % Eos % (Auto) 2.1 (0-4) % Baso % (Auto) 1.0 (0-2) % Lymph # (Auto) 2.0 (1.2-4.9) X10*3/uL [place] # (Auto) 0.3 (0.1-1.2) X10*3/uL Eos # (Auto) 0.1 (0.0-0.4) X10*3/uL Baso # (Auto) 0.1 (0.0-0.2) X10*3/uL Abs Immat Gran (auto) 0.01 (0.00-0.03) X10*3/uL Absolute Neuts (auto) 2.8 (2.0-8.3) x10*3/uL Absolute Nucleated RBC 0.000 (0.0-0.012) X10*3/uL Nucleated RBC % (auto) 0.0 (0.0-0.2) /100WBC Sodium 139 (135-145) mmol/L Potassium 3.5 D (3.3-5.1) mmol/L Chloride 105 (96-108) mmol/L Carbon Dioxide 25 (22-29) mmol/L Anion Gap 13 (12-20) BUN 11 (9-16) mg/dL Creatinine 0.90 (0.5-1.4) mg/dL Estim Creat Clear Calc 73.8 Estimated GFR > 60 Random Glucose 100 (60-115) mg/dL Calcium 9.3 (8.4-10.2) mg/dL Troponin I High Sens < 2.7 (<3.5-17.0) ng/L Influenza Type A (PCR) NEGATIVE (Negative) Influenza Type B (PCR) NEGATIVE (Negative) RSV RNA Qual (PCR) NEGATIVE (Negative) SARS-CoV-2 RNA (RT-PCR) NEGATIVE (Negative) Independent Interpretation I performed an independent interpretation of an: EKG and Plain X-Ray Interpretation: My interpretation is in agreement with the radiologist's impression of this imaging study. - EXAMINATION: XR CHEST CLINICAL INFORMATION: Cough COMPARISON: Chest 10/10/2023 TECHNIQUE: 2 views of the chest were obtained. 10:37 AM FINDINGS: Chest leads are seen over the chest. Lung volumes are low. No focal consolidation, interstitial pulmonary edema or pneumothorax. No pleural effusion. The cardiomediastinal silhouette is within normal limits. No acute osseous abnormalities appreciated. XR/XR chest 2V IMPRESSION: No acute cardiopulmonary disease. Dictated By: Flakita Luna MD Signed By: Electronically signed by Flakita Luna MD 11/04/23 1151 - Vent. Rate: 084 BPM Atrial Rate: 084 BPM P-R Int: 152 ms QRS Dur: 078 ms QT Int: 400 ms P-R-T Axes: 030 011 012 degrees QTc Int: 472 ms Normal sinus rhythm Normal ECG When compared with ECG of 10-OCT-2023 08:45, No significant change was found DD/ 0901 Radiology Impression Discussion of test interpretation with radiology: I have reviewed the radiologist's reading. Discharge Plan Discharge Clinical Impression: Viral illness Patient Disposition: Home, Self-Care Instructions: Viral Syndrome (ED) Additional Instructions: Follow up with your primary care provider. Return to the emergency department immediately if your symptoms worsen or if you develop any dizziness, shortness of breath, difficulty breathing, chest pain, blurry vision, loss of vision, nausea, vomiting, abdominal pain, fever, chills, back pain, or any other complaints. Prescriptions: No Action quetiapine 400 mg tablet 1 tab PO BEDTIME lidocaine 5 % adhesive patch,medicated 1 patch topical DAILY Qty: 15 0RF Rx Instructions: leave on most painful area for up to 12 hrs cyclobenzaprine 10 mg tablet 10 mg PO BEDTIME PRN (Reason: muscle spasm) Qty: 10 0RF oxycodone 5 mg tablet 5 mg PO Q8H PRN (Reason: pain) Qty: 10 0RF Rx Instructions: Partial Fill upon patient request. Xarelto 20 mg tablet 20 mg PO BEDTIME topiramate 50 mg tablet 50 mg PO DAILY tizanidine 4 mg tablet 4 mg PO TID PRN (Reason: Pain) loperamide 2 mg capsule 0 mg PO lamotrigine 200 mg tablet 200 mg PO BEDTIME lamotrigine 150 mg tablet 150 mg PO DAILY@0730 aspirin 81 mg tablet,delayed release (DR/EC) 81 mg PO DAILY clonazepam 1 mg tablet 0.5 mg PO TID Ubrelvy 100 mg tablet 100 mg PO PRN (Reason: Headache) duloxetine 60 mg capsule,delayed release(DR/EC) 60 mg PO BID meclizine 25 mg tablet 25 mg PO DAILY PRN acetaminophen 650 mg tablet extended release 0 mg PO clonazepam 0.5 mg tablet 0.5 mg PO TID PRN loperamide [Anti-Diarrheal (loperamide)] 2 mg capsule 2 mg PO Q6H PRN (Reason: loose stool) Qty: 10 0RF pantoprazole 20 mg tablet,delayed release (DR/EC) 20 mg PO BID 14 Days Qty: 28 0RF hyoscyamine sulfate [Levsin/SL] 0.125 mg tablet, sublingual 0.125 mg PO QID Qty: 90 1RF tramadol 50 mg tablet PO folic acid 1 mg tablet 1 mg PO DAILY ramelteon 8 mg tablet 8 mg PO DAILY ferrous sulfate [FeroSul] 325 mg (65 mg iron) tablet PO cyanocobalamin (vitamin B-12) [Vitamin B-12] 2,500 mcg tablet, sublingual 2,500 mcg sublingual DAILY amlodipine 10 mg tablet 10 mg PO DAILY loratadine 10 mg tablet 10 mg PO DAILY gabapentin 300 mg capsule 300 mg PO TID Referrals: Martin Navarro MD [Primary Care Provider] - Interventions: ED Discharge Assessment Last Done: 11/04/23 12:09 Discharge Date/Time: 11/04/23 12:09 Print Language: Congolese
[2023-11-04 10:28] VITALS: PULSE 87; RESP 16; O2SAT 100
[2023-11-04] MEDS: Albuterol Sulfate 90 MCG 8 GM INHALER 4 PUFF INHALE (10:28)
[2023-11-04] MEDS: dexAMETHasone sod phosphate 10 MG/ML VIAL PO (10:33)
[2023-11-04] MEDS: diphenhydrAMINE HCL 25 MG CAPSULE PO (10:33)
--- NOTE | 2023-11-04 10:35 | PC.NURSE ---
Pt medicated per JAN. Pt to xray at this time, ambulatory with a steady gait.
[2023-11-04 10:36] VITALS: PULSE 86
[2023-11-04 10:47] VITALS: BP 159/92; PULSE 89; RESP 12; TEMP 36.3; O2SAT 100
[2023-11-04 11:12] LABS: Influenza A PCR NEGATIVE (Negative); Influenza B PCR NEGATIVE (Negative); Resp Syncy Virus RNA Qual PCR NEGATIVE (Negative); SARS COV2 PCR INHOUSE NEGATIVE (Negative)
[2023-11-04 12:05] VITALS: BP 168/97; PULSE 86; RESP 16; O2SAT 100
== END 2023-11-04 12:09 | disposition home or self-care (01) ==
PROVIDERS: Physician Assistant Medical; Emergency Provider Emergency Medicine Emergency Medical Services; PCP Internal Medicine
DX: B34.9 Viral infection, unspecified (principal); I10 Essential (primary) hypertension; Z86.73 Personal history of transient ischemic attack (TIA), and cerebral infarction without residual deficits; Z79.01 Long term (current) use of anticoagulants; Z20.822 Contact with and (suspected) exposure to COVID-19; Z20.828 Contact with and (suspected) exposure to other viral communicable diseases
CPT/HCPCS: 0241U; 36415; 71046; 80048; 84484; 85025; 93005; 94640; 99284; J1100

== ENCOUNTER → 2023-11-04 08:58 | Outpatient (BNV) | payer OTHER, SELFPAY | PROVIDERS: Emergency Provider Emergency Medicine Emergency Medical Services; PCP Internal Medicine; Visit Provider Internal Medicine | DX: R07.9 Chest pain, unspecified (principal) | CPT/HCPCS: 93010 ==

== ENCOUNTER 2023-11-21 18:48 | Emergency (ER) | payer OTHER, SELFPAY ==
--- NOTE | 2023-11-21 | ECG_ITS ---
Test Reason : HIGH BP Blood Pressure : / mmHG Vent. Rate : 088 BPM Atrial Rate : 088 BPM P-R Int : 166 ms QRS Dur : 072 ms QT Int : 384 ms P-R-T Axes : 030 021 012 degrees QTc Int : 464 ms Normal sinus rhythm Normal ECG When compared with ECG of 04-NOV-2023 09:01, No significant change was found Referred By: Generic ED Physician Electronically Signed By:YISSEL TRONCOSO MD
[2023-11-21 18:58] VITALS: BP 168/92; PULSE 98; RESP 18; TEMP 36.3; O2SAT 98; BMI 40.4
--- NOTE | 2023-11-21 19:20 | MHC.EDTECH ---
Patient brought into triage area, EKG taken per order and signed by provider, labs obtained and sent to lab.
[2023-11-21 19:28] LABS: MANUAL DIFF FLAG NO
[2023-11-21 19:29] LABS: Basophils Absolute Auto 0.1 X10*3/uL (0.0-0.2); Basophils Percent Auto 0.9 % (0-2); Eosinophils Absolute Auto 0.1 X10*3/uL (0.0-0.4); Eosinophils Percent Auto 1.1 % (0-4); Hematocrit 36.7 % (37.0-47.0); Hemoglobin 12.3 g/dl (12.0-16.0); Imm Gran Abs Auto 0.02 X10*3/uL (0.00-0.03); Imm Gran Pct Auto 0.3 % (0.0-0.4); Lymphocytes Absolute Auto 2.9 X10*3/uL (1.2-4.9); Lymphocytes Percent Auto 41.3 % (20-40); Mean Corpuscular HGB Conc 33.5 g/dl (31.0-35.0); Mean Corpuscular Hemoglobin 28.3 pg (27.0-33.0); Mean Corpuscular Volume 84.4 fL (80.0-98.0); Monocytes Absolute Auto 0.5 X10*3/uL (0.1-1.2); Monocytes Percent Auto 7.5 % (2-11); Neutrophils Absolute Auto 3.4 x10*3/uL (2.0-8.3); Neutrophils Percent Auto 48.9 % (45-73); Platelet Count 331 X10*3/uL (160-400); Red Blood Count 4.35 X10*6/uL (4.20-5.50); Red Cell Distribution Width 14.5 % (11.0-16.0)
[2023-11-21 19:46] LABS: Anion Gap 12 (12-20); Blood Urea Nitrogen 9 mg/dL (9-16); Calcium 9.1 mg/dL (8.4-10.2); Carbon Dioxide 24 mmol/L (22-29); Chloride 108 mmol/L (96-108); Estimated Glomerular Filt Rate 45; Glucose Random 96 mg/dL (60-115); Potassium 3.6 mmol/L (3.3-5.1); Sodium 140 mmol/L (135-145)
[2023-11-21 19:56] LABS: Troponin-I High Sensitivity < 2.7 ng/L (<3.5-17.0)
== END 2023-11-22 00:34 | disposition left against medical advice (07) ==
PROVIDERS: Emergency Provider Emergency Medicine; PCP Internal Medicine
DX: R07.9 Chest pain, unspecified (principal); I10 Essential (primary) hypertension
CPT/HCPCS: 36415; 80048; 84484; 85025; 93005; 99283

== ENCOUNTER → 2023-11-21 19:15 | Outpatient (BNV) | payer OTHER, SELFPAY | PROVIDERS: Emergency Provider Emergency Medicine; PCP Internal Medicine; Visit Provider Internal Medicine Cardiovascular Disease | DX: R07.9 Chest pain, unspecified (principal) | CPT/HCPCS: 93010 ==

== ENCOUNTER 2023-12-02 07:52 | Outpatient (REF) | payer OTHER, SELFPAY ==
--- NOTE | ~2023-12-02 | CT_ITS ---
EXAMINATION: CT ENTEROGRAPHY ABDOMEN AND PELVIS WITH CONTRAST CLINICAL INFORMATION: Periumbilical pain. COMPARISON: 05/28/2023 and 07/31/2022 and 05/06/2021 TECHNIQUE: Study performed with oral VoLumen (1500 mL) and 480 mL of water to distend the abdomen. The patient was injected with 85 mL Omnipaque 350 intravenous contrast which was administered without adverse effect. Coronal and sagittal reformatted images were obtained at the technologist's workstation. This CT examination was performed using dose optimization techniques as appropriate, variously including the following: *Automated exposure control *Adjustment of mA and/or kV according to patient size (this includes techniques or standardized protocols for targeted exams where dose is matched to indication/reason for exam; i.e. extremities or head) *Use of iterative reconstruction technique DLP: 536 mGy-cm FINDINGS: GASTROINTESTINAL FINDINGS: Stomach: Satisfactorily distended and unremarkable in appearance. Small hiatal hernia. Small intestine: Satisfactorily distended and unremarkable in appearance. Large intestine: Submucosal fatty infiltration of the transverse colon may represent prior inflammation. No perirectal changes demonstrated. The appendix is within normal limits. Additional findings: No abnormal enhancement of the vasa recta or significant mesenteric or retroperitoneal lymphadenopathy is seen. No abdominal abscess or fistulous tract demonstrated. ABDOMINAL AND PELVIC CT FINDINGS: Liver, gallbladder, biliary tract: The liver is normal in size and contour. No focal hepatic lesion. No biliary ductal visualization. The gallbladder is surgically absent. Pancreas: No ductal dilatation. Spleen: Not enlarged. Adrenal glands and kidneys: No adrenal mass. The kidneys enhance symmetrically. There are areas of cortical scarring medial aspect of the left kidney. No hydronephrosis or perinephric fluid collection. Ureters and bladder: Unremarkable. Lymphovascular structures: No bulky lymphadenopathy. Normal caliber abdominal aorta. Pelvic viscera: Unremarkable. Bones: No destructive bone lesions. Lung bases: No pleural or pericardial effusion. CT/CT enterography IMPRESSION: No acute abnormality in the abdomen or pelvis. Possible old/chronic inflammatory changes of the transverse colon.
[2023-12-02] MEDS: Sorbitol/Mannit/Xanth Imaging 500 ML LIQUID 1500 ML PO (09:39)
[2023-12-02] MEDS: iohexoL 350 MG/ML 75 ML INFUS..BTL 85 ML IV (09:39)
== END 2023-12-02 07:53 | disposition home or self-care (01) ==
LOC: HO.CT 07:52
PROVIDERS: PCP Internal Medicine; Visit Provider Internal Medicine Gastroenterology
DX: R10.33 Periumbilical pain (principal); K50.90 Crohn's disease, unspecified, without complications
CPT/HCPCS: 74177; Q9967

== ENCOUNTER 2023-12-15 13:14 | Emergency (ER) | payer OTHER, SELFPAY ==
--- NOTE | ~2023-12-15 | XR_ITS ---
EXAMINATION: XR CHEST CLINICAL INFORMATION: Chest pain COMPARISON: 11/04/2023 TECHNIQUE: 2 views of the chest were obtained. FINDINGS: Lungs clear. No pleural effusions. Heart and pulmonary vessels normal. XR/XR chest 2V IMPRESSION: No active disease.
--- NOTE | 2023-12-15 13:18 | ECG_ITS ---
Test Reason : HYPERTENSION Blood Pressure : / mmHG Vent. Rate : 095 BPM Atrial Rate : 095 BPM P-R Int : 148 ms QRS Dur : 074 ms QT Int : 372 ms P-R-T Axes : 029 016 019 degrees QTc Int : 467 ms Normal sinus rhythm Normal ECG When compared with ECG of 21-NOV-2023 19:15, No significant change was found Referred By: Minnie Garibay Electronically Signed By:RADHA GOMEZ
--- NOTE | 2023-12-15 13:37 | ED.CHESTPAIN ---
HPI - Chest Pain General Chief Complaint: Chest Pain Stated Complaint: HBP Chest Pain L Arm Numbness Related Data Home Medications Medication Instructions Recorded Confirmed aspirin 81 mg tablet,delayed 81 mg PO DAILY 03/12/21 01/20/23 release lamotrigine 150 mg tablet 150 mg PO DAILY@0730 03/12/21 01/15/23 lamotrigine 200 mg tablet 200 mg PO BEDTIME 03/12/21 01/15/23 loperamide 2 mg capsule 0 mg PO 03/12/21 tizanidine 4 mg tablet 4 mg PO TID PRN Pain 03/12/21 01/15/23 rivaroxaban 20 mg tablet 20 mg PO BEDTIME 05/07/21 01/20/23 topiramate 50 mg tablet 50 mg PO DAILY 05/07/21 01/15/23 duloxetine 60 mg capsule,delayed 60 mg PO BID 06/20/22 01/15/23 release ubrogepant 100 mg tablet (Ubrelvy) 100 mg PO PRN Headache 06/20/22 quetiapine 400 mg tablet 1 tab PO BEDTIME 01/15/23 01/15/23 acetaminophen 650 mg 0 mg PO 02/06/23 tablet,extended release clonazepam 0.5 mg tablet 0.5 mg PO TID PRN 02/06/23 clonazepam 1 mg tablet 0.5 mg PO TID Anxiety 02/06/23 meclizine 25 mg tablet 25 mg PO DAILY PRN 02/06/23 amlodipine 10 mg tablet 10 mg PO DAILY 10/19/23 cyanocobalamin (vitamin B-12) 2,500 mcg sublingual DAILY 10/19/23 2,500 mcg sublingual tablet (Vitamin B-12) ferrous sulfate 325 mg (65 mg mg PO 10/19/23 iron) tablet (FeroSul) folic acid 1 mg tablet 1 mg PO DAILY 10/19/23 gabapentin 300 mg capsule 300 mg PO TID 10/19/23 loratadine 10 mg tablet 10 mg PO DAILY 10/19/23 ramelteon 8 mg tablet 8 mg PO DAILY 10/19/23 tramadol 50 mg tablet mg PO 10/19/23 Previous Rx's Medication Instructions Recorded loperamide 2 mg capsule 2 mg PO Q6H PRN loose stool #10 02/06/23 (Anti-Diarrheal (loperamide)) caps pantoprazole 20 mg tablet,delayed 20 mg PO BID 2 weeks #28 tabs 02/06/23 release cyclobenzaprine 10 mg tablet 10 mg PO BEDTIME PRN muscle spasm 05/28/23 #10 tabs oxycodone 5 mg tablet 5 mg PO Q8H PRN pain #10 tabs 05/28/23 hyoscyamine sulfate 0.125 mg 0.125 mg PO QID #90 tabs 06/29/23 sublingual tablet (Levsin/SL) lidocaine 5 % topical patch 1 patch topical DAILY #15 ea 08/26/23 Allergies Allergy/AdvReac Type Severity Reaction Status Date / Time apixaban [From Eliquis] Allergy Intermediate Itching, Verified 12/15/23 13:41 rash prednisone Allergy Mild Unknown Verified 12/15/23 13:41 [facility] Past Medical History Medical History Crohn disease Anxiety and depression History of CVA (cerebrovascular accident) On anticoagulant therapy Vitamin D deficiency KAYODE (obstructive sleep apnea) LOC (loss of consciousness) Migraine IBS (irritable bowel syndrome) Fibromyalgia Chronic depression Bipolar disorder HTN (hypertension) Anxiety H/O blood clots H/O stroke within last year Surgical History Hx of tubal ligation History of Hx of cholecystectomy Hx of endoscopy History of colonoscopy Family History Family History Father Hx of type 1 diabetes mellitus History of high cholesterol Mother Family history of high blood pressure Social History Social History Household Members: None Household Members Other:: mother Are you a primary primary care nurse to a significant other at home: No Do you presently have visiting nurse or other home services: No Alcohol intake: never Patient Tobacco Use Status: Never used Tobacco Current occupational status: disabled Physical Exam Vital Signs: Vital Signs: Last Vital Signs Temp 96.8 F 12/15/23 13:38 Pulse 92 12/15/23 13:38 Resp 20 12/15/23 13:38 BP 155/88 H 12/15/23 13:38 Pulse Ox 100 12/15/23 13:38 O2 Del Method Room Air 12/15/23 13:38 BMI result Body Mass Index 39.5 Course Course Course Narrative: This is a rapid medical exam. Defer additional HPI, ROS and PE to primary provider. 48-year-old female with a history of HTN, anxiety, depression, bipolar disorder, fibromyalgia, crohns disease, clotting disorder on xarelto here with chest heaviness today which occurred at rest, left arm numbness, headache x 1 week. Will obtain labs, EKG, CXR VSS Medical Decision Making Lab Data 12/15/23 14:00 12/15/23 14:00 Labs: Lab Results 12/15/23 Range/Units 14:00 WBC 6.1 (4.8-10.8) X10*3/uL RBC 4.42 (4.20-5.50) X10*6/uL Hgb 12.3 (12.0-16.0) g/dl Hct 36.9 L (37.0-47.0) % MCV 83.5 (80.0-98.0) fL MCH 27.8 (27.0-33.0) pg MCHC 33.3 (31.0-35.0) g/dl RDW 14.6 (11.0-16.0) % Plt Count 306 (160-400) X10*3/uL MPV 11.4 (9.4-12.3) fL Immature Gran % (Auto) 0.2 (0.0-0.4) % Neut % (Auto) 59.3 (45-73) % Lymph % (Auto) 33.7 (20-40) % Barry % (Auto) 5.0 (2-11) % Eos % (Auto) 0.8 (0-4) % Baso % (Auto) 1.0 (0-2) % Lymph # (Auto) 2.1 (1.2-4.9) X10*3/uL Barry # (Auto) 0.3 (0.1-1.2) X10*3/uL Eos # (Auto) 0.1 (0.0-0.4) X10*3/uL Baso # (Auto) 0.1 (0.0-0.2) X10*3/uL Abs Immat Gran (auto) 0.01 (0.00-0.03) X10*3/uL Absolute Neuts (auto) 3.6 (2.0-8.3) x10*3/uL Absolute Nucleated RBC 0.000 (0.0-0.012) X10*3/uL Nucleated RBC % (auto) 0.0 (0.0-0.2) /100WBC PT 11.0 L (11.1-13.3) SEC INR 0.9 (0.9-1.1) Sodium 139 (135-145) mmol/L Potassium 3.6 (3.3-5.1) mmol/L Chloride 108 (96-108) mmol/L Carbon Dioxide 22 (22-29) mmol/L Anion Gap 13 (12-20) BUN 11 (9-16) mg/dL Creatinine 1.56 H (0.5-1.4) mg/dL Estim Creat Clear Calc 42.2 Estimated GFR 35 Random Glucose 103 (60-115) mg/dL Calcium 9.2 (8.4-10.2) mg/dL Total Bilirubin 0.2 (0.0-1.0) mg/dL Direct Bilirubin < 0.2 (0.0-0.5) mg/dL AST 13 (5-31) U/L ALT 11 (0-31) U/L Alkaline Phosphatase 135 H (39-117) U/L Troponin I High Sens < 2.7 (<3.5-17.0) ng/L Total Protein 7.5 (6.5-8.0) g/dL Albumin 4.1 (3.5-5.0) g/dL Discharge Plan Discharge Clinical Impression: Chest pain Patient Disposition: Left W/O Completing Treatment Prescriptions: No Action quetiapine 400 mg tablet 1 tab PO BEDTIME lidocaine 5 % adhesive patch,medicated 1 patch topical DAILY Qty: 15 0RF Rx Instructions: leave on most painful area for up to 12 hrs cyclobenzaprine 10 mg tablet 10 mg PO BEDTIME PRN (Reason: muscle spasm) Qty: 10 0RF oxycodone 5 mg tablet 5 mg PO Q8H PRN (Reason: pain) Qty: 10 0RF Rx Instructions: Partial Fill upon patient request. Xarelto 20 mg tablet 20 mg PO BEDTIME topiramate 50 mg tablet 50 mg PO DAILY tizanidine 4 mg tablet 4 mg PO TID PRN (Reason: Pain) loperamide 2 mg capsule 0 mg PO lamotrigine 200 mg tablet 200 mg PO BEDTIME lamotrigine 150 mg tablet 150 mg PO DAILY@0730 aspirin 81 mg tablet,delayed release (DR/EC) 81 mg PO DAILY clonazepam 1 mg tablet 0.5 mg PO TID Ubrelvy 100 mg tablet 100 mg PO PRN (Reason: Headache) duloxetine 60 mg capsule,delayed release(DR/EC) 60 mg PO BID meclizine 25 mg tablet 25 mg PO DAILY PRN acetaminophen 650 mg tablet extended release 0 mg PO clonazepam 0.5 mg tablet 0.5 mg PO TID PRN loperamide [Anti-Diarrheal (loperamide)] 2 mg capsule 2 mg PO Q6H PRN (Reason: loose stool) Qty: 10 0RF pantoprazole 20 mg tablet,delayed release (DR/EC) 20 mg PO BID 14 Days Qty: 28 0RF hyoscyamine sulfate [Levsin/SL] 0.125 mg tablet, sublingual 0.125 mg PO QID Qty: 90 1RF tramadol 50 mg tablet PO folic acid 1 mg tablet 1 mg PO DAILY ramelteon 8 mg tablet 8 mg PO DAILY ferrous sulfate [FeroSul] 325 mg (65 mg iron) tablet PO cyanocobalamin (vitamin B-12) [Vitamin B-12] 2,500 mcg tablet, sublingual 2,500 mcg sublingual DAILY amlodipine 10 mg tablet 10 mg PO DAILY loratadine 10 mg tablet 10 mg PO DAILY gabapentin 300 mg capsule 300 mg PO TID Discharge Date/Time: 12/15/23 22:44
[2023-12-15 13:38] VITALS: BP 155/88; PULSE 92; RESP 20; TEMP 36; O2SAT 100; BMI 39.5
[2023-12-15 14:03] LABS: MANUAL DIFF FLAG NO
[2023-12-15 14:05] LABS: Basophils Absolute Auto 0.1 X10*3/uL (0.0-0.2); Eosinophils Absolute Auto 0.1 X10*3/uL (0.0-0.4); Eosinophils Percent Auto 0.8 % (0-4); Hematocrit 36.9 % (37.0-47.0); Hemoglobin 12.3 g/dl (12.0-16.0); Imm Gran Abs Auto 0.01 X10*3/uL (0.00-0.03); Imm Gran Pct Auto 0.2 % (0.0-0.4); Lymphocytes Absolute Auto 2.1 X10*3/uL (1.2-4.9); Lymphocytes Percent Auto 33.7 % (20-40); Mean Corpuscular HGB Conc 33.3 g/dl (31.0-35.0); Mean Corpuscular Hemoglobin 27.8 pg (27.0-33.0); Mean Corpuscular Volume 83.5 fL (80.0-98.0); Mean Platelet Volume 11.4 fL (9.4-12.3); Monocytes Absolute Auto 0.3 X10*3/uL (0.1-1.2); Neutrophils Absolute Auto 3.6 x10*3/uL (2.0-8.3); Neutrophils Percent Auto 59.3 % (45-73); Platelet Count 306 X10*3/uL (160-400); Red Blood Count 4.42 X10*6/uL (4.20-5.50); Red Cell Distribution Width 14.6 % (11.0-16.0); White Blood Count 6.1 X10*3/uL (4.8-10.8)
[2023-12-15 14:17] LABS: INTERNATIONAL NORM RATIO 0.9 (0.9-1.1)
[2023-12-15 14:27] LABS: Alanine Aminotransferase 11 U/L (0-31); Albumin Level 4.1 g/dL (3.5-5.0); Alkaline Phosphatase 135 U/L (39-117); Anion Gap 13 (12-20); Aspartate Amino Transferase 13 U/L (5-31); Bilirubin Direct < 0.2 mg/dL (0.0-0.5); Bilirubin Total 0.2 mg/dL (0.0-1.0); Blood Urea Nitrogen 11 mg/dL (9-16); Calcium 9.2 mg/dL (8.4-10.2); Carbon Dioxide 22 mmol/L (22-29); Chloride 108 mmol/L (96-108); Creatinine Clr Calc Pharmacy 42.2; Estimated Glomerular Filt Rate 35; Glucose Random 103 mg/dL (60-115); Potassium 3.6 mmol/L (3.3-5.1); Sodium 139 mmol/L (135-145); Total Protein 7.5 g/dL (6.5-8.0)
[2023-12-15 14:35] LABS: Troponin-I High Sensitivity < 2.7 ng/L (<3.5-17.0)
== END 2023-12-15 22:44 | disposition left against medical advice (07) ==
LOC: HO.ED 22:29
PROVIDERS: Nurse Practitioner Family; Emergency Provider Emergency Medicine; PCP Internal Medicine
DX: R07.9 Chest pain, unspecified (principal); I10 Essential (primary) hypertension; R20.0 Anesthesia of skin; R51.9 Headache, unspecified; K50.90 Crohn's disease, unspecified, without complications; D68.9 Coagulation defect, unspecified; Z79.01 Long term (current) use of anticoagulants; Z86.73 Personal history of transient ischemic attack (TIA), and cerebral infarction without residual deficits
CPT/HCPCS: 36415; 71046; 80048; 80076; 84484; 85025; 85610; 93005; 99283

== ENCOUNTER → 2023-12-15 13:18 | Outpatient (BNV) | payer OTHER, SELFPAY | PROVIDERS: PCP Internal Medicine; Visit Provider Internal Medicine | DX: I10 Essential (primary) hypertension (principal) | CPT/HCPCS: 93010 ==

== ENCOUNTER 2024-03-14 09:03 | Outpatient (AMB) | payer OTHER, SELFPAY ==
--- NOTE | 2024-03-14 09:04 | A.OFFVIS_ITS ---
Vital Signs 03/14/24 09:06 Height 4 ft 11 in Weight 182 lb 15.739 oz BMI 37.0 BP 138/85 Blood Pressure Location Lt brachial Position Sitting Pulse 96 Intake Visit Reasons: 4 month follow up Intake Note: Melinda presents in the office as a 4 month follow up. CC: No concerns at this time. Allergies apixaban [From Eliquis] Allergy (Intermediate, Verified 03/14/24 09:06) Itching, rash prednisone Allergy (Mild, Verified 03/14/24 09:06) Unknown HPI HPI 4 month follow up: Details: 49 yr old f here for f/u RECAP: I saw her at [facility] and she was eventually dx with suspected remitting and relapsing crohns and put on humira now she is c/o diffuse abdominal pain for 1-2 months, cramping not the same as her prior pains worse w passing gas and stool stool is soft and comes out easy she does have nausea for 1.5 wks and chills for 2 weeks she denies sore throat or fever, no cough appetite is fair weight is going down 212-->#193 not taking narcs, she is taking ibuprofen 250 mg q 6 hrs for 1 week she is taking omeprazole 20 mg once a day she feels humira works well for 1 week but following week pain returns uintil she gets her injection following week ADA level was ok, sx improved so we held on increasing humira in the interim she was evaluated by hematology due to thromboembolic events incl CVA, PTE she is on xarelto, pending further thrombotic w/u she was losing weight 55# over 2 months she has been taking humira as prescribed apparently she is b12 def and been on replacement humira levels were good with no Ab she was placed on entyvio when I saw her last she had not had entyvio for >6 months or so TESTS: MR enterogram 02/2020--essentially normal labs 04/2020 fecal calprotectin--neg ADA level 7.8, no AB LFt nml bubble study at [facility] --neg per heme report EGD/colo: 01/20/23 Endoscopy Findings: schatzki ring hiatal hernia lax LES Colonoscopy Findings: internal hemorrhoids PATH: A. Duodenum, biopsy: Duodenal mucosa within normal limits. B. Stomach, biopsy: - Antral-type mucosa with moderate chronic active inflammation. - Positive for H pylori. C. GE junction, biopsy: - Cardiac-type mucosa with moderate chronic inactive inflammation; no intestinal metaplasia seen. - Squamous mucosa within normal limits. D. Esophagus, distal, biopsy: Squamous epithelium within normal limits; no inflammation seen. E. Terminal ileum, biopsy: Small intestinal mucosa within normal limits. F. Colon, right, biopsy: Colonic mucosa within normal limits. G. Colon, transverse and left, biopsy: Colonic mucosa within normal limits. H. Rectum, biopsy: Rectal mucosa within normal limits. CTe: 12/02 no acute changes, chronic or old inflammatory changes transverse colon (fecal lactoferrin 10/31---neg) INTERIM: She has been doing well heavy periods controlled with lupron weight is stable good appetite denies abdominal pain still on xarelto not having any nausea or vomiting EXAM: GENERAL: The patient is well developed and nontoxic. VITAL SIGNS:see workflow HEENT: Nonicteric sclerae, PERRLA, EOMI. Oropharynx clear. Moist mucous membranes. Conjunctivae appear well perfused. No thyroid mass. CHEST: Chest wall is nontender. HEART: Regular rate and rhythm without murmurs. LUNGS: Clear to auscultation bilaterally. ABDOMEN: Soft, positive bowel sounds, nontender, no organomegaly.no flank tenderness SKIN: No rash, no excessive bruising, petechiae, or purpura. NEUROLOGIC: Cranial nerves II-XII intact without motor/sensory deficit. psych; normal Assessment & Plan (1) Crohn's disease- mild sx, she missed entyvio due to hospital admission and not had it for months now, colonoscopy was neg for inflammation in TI and colon and she seems to be in clinical remission, CTe with old changes 2/ thromboembolic events, no obvious trigger, undergoing w/u, IBD is a hypercoaguable state and can predispose to clots 3/ has anemia whilst on NOAC, ? mucosal bleeding from active crohns--seems to have resolved 4/ h pylori, cured PLAN: 1/ cont to monitor clinically 2/ cont with iron and MV< 3/ advised to call me if any abdo pain, diarrhea, rectal bleeding etc PFSH Medical History Crohn disease Anxiety and depression History of CVA (cerebrovascular accident) On anticoagulant therapy Vitamin D deficiency KAYODE (obstructive sleep apnea) LOC (loss of consciousness) Migraine IBS (irritable bowel syndrome) Fibromyalgia Chronic depression Bipolar disorder HTN (hypertension) Anxiety H/O blood clots H/O stroke within last year Surgical History Hx of tubal ligation History of Hx of cholecystectomy Hx of endoscopy History of colonoscopy Family History Father Hx of type 1 diabetes mellitus History of high cholesterol Mother Family history of high blood pressure Social History Household Members: None Household Members Other:: mother Are you a primary sub acute care nurse to a significant other at home: No Do you presently have visiting nurse or other home services: No Alcohol intake: never Patient Tobacco Use Status: Never used Tobacco Current occupational status: disabled Physical Exam Vital Signs: Last Vital Signs Pulse 96 03/14/24 09:06 BP 138/85 03/14/24 09:06 BMI result Body Mass Index 37.0 Assessment & Plan Assessment & Plan (1) Crohn's disease: Code(s): K50.90 - Crohn's disease, unspecified, without complications Category: Medical Plan: see above Medications: Discontinued oxycodone Partial Fill upon patient request. Discontinued Reason: Patient no longer taking 5 mg PO Q8H PRN 10 tabs 0RF pain hyoscyamine sulfate (Levsin/SL) Discontinued Reason: Patient no longer taking 0.125 mg PO QID 90 tabs 1RF Coding Level of Care Code Est Pt Level 3 (34167) Diagnoses Crohn's disease K50.90
[2024-03-14 09:06] VITALS: BP 138/85; PULSE 96; BMI 37.0
== END 2024-03-14 09:34 | disposition home or self-care (01) ==
PROVIDERS: PCP Internal Medicine; Visit Provider Internal Medicine Gastroenterology
DX: K50.90 Crohn's disease, unspecified, without complications (principal)
CPT/HCPCS: 99213

== ENCOUNTER → 2024-03-14 09:03 | Outpatient (BNVA) | payer OTHER, SELFPAY | PROVIDERS: PCP Internal Medicine; Visit Provider Internal Medicine Gastroenterology | DX: K50.90 Crohn's disease, unspecified, without complications (principal) | CPT/HCPCS: 99212 ==

== ENCOUNTER 2024-03-29 07:17 | Outpatient (REF) | payer OTHER, SELFPAY ==
[2024-03-29 07:37] LABS: MANUAL DIFF FLAG NO
[2024-03-29 08:03] LABS: Basophils Absolute Auto 0.1 X10*3/uL (0.0-0.2); Eosinophils Absolute Auto 0.1 X10*3/uL (0.0-0.4); Eosinophils Percent Auto 1.9 % (0-4); Hematocrit 35.8 % (37.0-47.0); Hemoglobin 11.6 g/dl (12.0-16.0); Imm Gran Abs Auto 0.02 X10*3/uL (0.00-0.03); Imm Gran Pct Auto 0.3 % (0.0-0.4); Lymphocytes Absolute Auto 1.8 X10*3/uL (1.2-4.9); Lymphocytes Percent Auto 30.7 % (20-40); Mean Corpuscular HGB Conc 32.4 g/dl (31.0-35.0); Mean Corpuscular Hemoglobin 27.2 pg (27.0-33.0); Mean Corpuscular Volume 83.8 fL (80.0-98.0); Mean Platelet Volume 11.8 fL (9.4-12.3); Monocytes Absolute Auto 0.5 X10*3/uL (0.1-1.2); Monocytes Percent Auto 8.3 % (2-11); Neutrophils Absolute Auto 3.3 x10*3/uL (2.0-8.3); Neutrophils Percent Auto 57.8 % (45-73); Platelet Count 290 X10*3/uL (160-400); Red Blood Count 4.27 X10*6/uL (4.20-5.50); Red Cell Distribution Width 14.4 % (11.0-16.0); White Blood Count 5.8 X10*3/uL (4.8-10.8)
[2024-03-29 08:32] LABS: Alanine Aminotransferase 18 U/L (0-31); Albumin Level 4.1 g/dL (3.5-5.0); Alkaline Phosphatase 140 U/L (39-117); Anion Gap 14 (12-20); Aspartate Amino Transferase 20 U/L (5-31); Bilirubin Total 0.3 mg/dL (0.0-1.0); Blood Urea Nitrogen 11 mg/dL (9-16); C Reactive Protein 1.17 mg/dL (< or = 0.50); Calcium 9.2 mg/dL (8.4-10.2); Carbon Dioxide 25 mmol/L (22-29); Chloride 106 mmol/L (96-108); Estimated Glomerular Filt Rate > 60; Glucose Random 111 mg/dL (60-115); Potassium 3.8 mmol/L (3.3-5.1); Sodium 141 mmol/L (135-145); Total Protein 7.7 g/dL (6.5-8.0)
[2024-03-29 09:51] LABS: Appearance Urine Clear; Color Urine Yellow; Glucose Urine UA Negative (Negative); Leukocyte Esterase Urine Trace (Negative); Nitrite Urine Negative (Negative); PH 6.5 (5.0-9.0); UMIC TRIGGER UACC YES; Urine Blood Trace (Negative); Urine Ketones Negative (Negative); Urine Protein Negative (Neg-Trace)
[2024-03-29 09:59] LABS: Bacteria Urine 1+ (None Seen); Hyaline Casts Urine 0-2 /LPF (0-2); RBC Urine 0-2 /HPF (0-2); WBC Urine 0-5 /HPF (0-5)
[2024-03-30 07:39] LABS: Follicle Stimulating Hormone 11.4 mIU/mL; Lutenizing Hormone <0.2 mIU/mL
== END 2024-03-29 07:18 | disposition home or self-care (01) ==
LOC: HO.LAB 07:17
PROVIDERS: PCP Internal Medicine; Visit Provider Internal Medicine Gastroenterology
DX: K63.4 Enteroptosis (principal); K50.90 Crohn's disease, unspecified, without complications; K75.81 Nonalcoholic steatohepatitis (NASH)
CPT/HCPCS: 36415; 80053; 81001; 83001; 83002; 85025; 86140

== ENCOUNTER 2024-06-13 08:00 | Outpatient (REF) | payer OTHER, SELFPAY ==
[2024-06-13 08:21] LABS: MANUAL DIFF FLAG NO
[2024-06-13 08:54] LABS: Basophils Absolute Auto 0.1 X10*3/uL (0.0-0.2); Basophils Percent Auto 1.1 % (0-2); Eosinophils Absolute Auto 0.1 X10*3/uL (0.0-0.4); Eosinophils Percent Auto 2.1 % (0-4); Hematocrit 34.5 % (37.0-47.0); Hemoglobin 11.2 g/dl (12.0-16.0); Imm Gran Abs Auto 0.02 X10*3/uL (0.00-0.03); Imm Gran Pct Auto 0.4 % (0.0-0.4); Lymphocytes Absolute Auto 1.9 X10*3/uL (1.2-4.9); Lymphocytes Percent Auto 35.8 % (20-40); Mean Corpuscular HGB Conc 32.5 g/dl (31.0-35.0); Mean Corpuscular Volume 86.3 fL (80.0-98.0); Mean Platelet Volume 11.8 fL (9.4-12.3); Monocytes Absolute Auto 0.4 X10*3/uL (0.1-1.2); Monocytes Percent Auto 8.2 % (2-11); Neutrophils Absolute Auto 2.7 x10*3/uL (2.0-8.3); Neutrophils Percent Auto 52.4 % (45-73); Platelet Count 279 X10*3/uL (160-400); Red Cell Distribution Width 15.6 % (11.0-16.0); White Blood Count 5.2 X10*3/uL (4.8-10.8)
[2024-06-13 08:59] LABS: Appearance Urine Clear; Color Urine Yellow; Glucose Urine UA Negative (Negative); Leukocyte Esterase Urine Negative (Negative); Nitrite Urine Negative (Negative); PH 6.5 (5.0-9.0); Specific Gravity - Urine <= 1.005 (1.005-1.025); Urine Blood Negative (Negative); Urine Ketones Negative (Negative); Urine Protein Negative (Neg-Trace)
[2024-06-13 09:36] LABS: Alanine Aminotransferase 12 U/L (0-31); Albumin Level 3.8 g/dL (3.5-5.0); Alkaline Phosphatase 127 U/L (39-117); Anion Gap 10 (12-20); Aspartate Amino Transferase 14 U/L (5-31); Bilirubin Total 0.1 mg/dL (0.0-1.0); Blood Urea Nitrogen 12 mg/dL (9-16); C Reactive Protein 0.37 mg/dL (< or = 0.50); Calcium 8.8 mg/dL (8.4-10.2); Carbon Dioxide 26 mmol/L (22-29); Chloride 107 mmol/L (96-108); Estimated Glomerular Filt Rate > 60; Glucose Random 93 mg/dL (60-115); Potassium 3.6 mmol/L (3.3-5.1); Sodium 139 mmol/L (135-145); Total Protein 6.7 g/dL (6.5-8.0)
[2024-06-13 09:45] LABS: Erythrocyte Sedimentation Rate 14 MM/HR (0-20)
[2024-06-13 09:52] LABS: Ferritin 13 ng/mL (10-250)
== END 2024-06-13 08:01 | disposition home or self-care (01) ==
LOC: HO.LAB 08:00
PROVIDERS: Visit Provider Internal Medicine Gastroenterology
DX: R63.4 Abnormal weight loss (principal); K50.90 Crohn's disease, unspecified, without complications; R30.0 Dysuria; K75.81 Nonalcoholic steatohepatitis (NASH)
CPT/HCPCS: 36415; 80053; 81003; 82728; 85025; 85652; 86140

== ENCOUNTER 2024-09-12 09:20 | Outpatient (AMB) | payer OTHER, SELFPAY ==
--- NOTE | 2024-09-12 09:21 | A.OFFVIS_ITS ---
Vital Signs 09/12/24 09:24 Height 4 ft 11 in Weight 171 lb 15.369 oz BMI 34.7 BP 117/58 L Blood Pressure Location Lt brachial Position Sitting Pulse 87 Intake Visit Reasons: 6 month follow up Intake Note: Melinda presents in the office as a 6 month follow up. CC: She states that she is not having any concerns! Airline Pilot Required: No Allergies apixaban [From Eliquis] Allergy (Intermediate, Verified 09/12/24 09:24) Itching, rash prednisone Allergy (Mild, Verified 09/12/24 09:24) Unknown HPI HPI 6 month follow up: Details: 49 yr old f here for f/u RECAP: I saw her at [facility] and she was eventually dx with suspected remitting and relapsing crohns and put on humira now she is c/o diffuse abdominal pain for 1-2 months, cramping not the same as her prior pains worse w passing gas and stool stool is soft and comes out easy she does have nausea for 1.5 wks and chills for 2 weeks she denies sore throat or fever, no cough appetite is fair weight is going down 212-->#193 not taking narcs, she is taking ibuprofen 250 mg q 6 hrs for 1 week she is taking omeprazole 20 mg once a day she feels humira works well for 1 week but following week pain returns uintil she gets her injection following week ADA level was ok, sx improved so we held on increasing humira in the interim she was evaluated by hematology due to thromboembolic events incl CVA, PTE she is on xarelto, pending further thrombotic w/u she was losing weight 55# over 2 months she has been taking humira as prescribed apparently she is b12 def and been on replacement humira levels were good with no Ab she was placed on entyvio when I saw her last she had not had entyvio for >6 months or so TESTS: MR enterogram 02/2020--essentially normal labs 04/2020 fecal calprotectin--neg ADA level 7.8, no AB LFt nml bubble study at [facility] --neg per heme report EGD/colo: 01/20/23 Endoscopy Findings: schatzki ring hiatal hernia lax LES Colonoscopy Findings: internal hemorrhoids PATH: A. Duodenum, biopsy: Duodenal mucosa within normal limits. B. Stomach, biopsy: - Antral-type mucosa with moderate chronic active inflammation. - Positive for H pylori. C. GE junction, biopsy: - Cardiac-type mucosa with moderate chronic inactive inflammation; no intestinal metaplasia seen. - Squamous mucosa within normal limits. D. Esophagus, distal, biopsy: Squamous epithelium within normal limits; no inflammation seen. E. Terminal ileum, biopsy: Small intestinal mucosa within normal limits. F. Colon, right, biopsy: Colonic mucosa within normal limits. G. Colon, transverse and left, biopsy: Colonic mucosa within normal limits. H. Rectum, biopsy: Rectal mucosa within normal limits. CTe: 12/02 no acute changes, chronic or old inflammatory changes transverse colon (fecal lactoferrin 10/31---neg) INTERIM: no longer having heavy periods still on xarelto, last hgb by PCP was normal 07/02 weight is stable good appetite denies abdominal pain EXAM: GENERAL: The patient is well developed and nontoxic. VITAL SIGNS:see workflow HEENT: Nonicteric sclerae, PERRLA, EOMI. Oropharynx clear. Moist mucous membranes. Conjunctivae appear well perfused. No thyroid mass. CHEST: Chest wall is nontender. HEART: Regular rate and rhythm without murmurs. LUNGS: Clear to auscultation bilaterally. ABDOMEN: Soft, positive bowel sounds, nontender, no organomegaly.no flank tenderness SKIN: No rash, no excessive bruising, petechiae, or purpura. NEUROLOGIC: Cranial nerves II-XII intact without motor/sensory deficit. psych; normal Assessment & Plan 1/ Crohn's disease- mild sx, she missed entyvio due to hospital admission and not had it for months now, colonoscopy was neg for inflammation in TI and colon and she seems to be in clinical remission, CTe with old changes-- 2/ thromboembolic events, no obvious trigger, undergoing w/u, IBD is a hypercoaguable state and can predispose to clots 3/ has anemia whilst on NOAC, ? mucosal bleeding from active crohns--seems to have resolved with control of periods 4/ h pylori, cured PLAN: 1/ cont to monitor clinically 2/ cont with iron and MV< 3/ advised to call me if any abdo pain, diarrhea, rectal bleeding etc 4/ meantime recheck CBC and hematinics today [facility] Medical History Crohn disease Anxiety and depression History of CVA (cerebrovascular accident) On anticoagulant therapy Vitamin D deficiency KAYODE (obstructive sleep apnea) LOC (loss of consciousness) Migraine IBS (irritable bowel syndrome) Fibromyalgia Chronic depression Bipolar disorder HTN (hypertension) Anxiety H/O blood clots H/O stroke within last year Surgical History Hx of tubal ligation History of Hx of cholecystectomy Hx of endoscopy History of colonoscopy Family History Father Hx of type 1 diabetes mellitus History of high cholesterol Mother Family history of high blood pressure Social History Household Members: None Household Members Other:: mother Are you a primary managed care specialist to a significant other at home: No Do you presently have visiting nurse or other home services: No Alcohol intake: never Patient Tobacco Use Status: Never used Tobacco Current occupational status: disabled Physical Exam Vital Signs: Last Vital Signs Pulse 87 09/12/24 09:24 BP 117/58 L 09/12/24 09:24 BMI result Body Mass Index 34.7 Assessment & Plan Assessment & Plan (1) Crohn's disease in remission: Code(s): K50.90 - Crohn's disease, unspecified, without complications Category: Medical Plan: see above Coding Level of Care Code Est Pt Level 3 (67905) Diagnoses Crohn's disease in remission K50.90
[2024-09-12 09:24] VITALS: BP 117/58; PULSE 87; BMI 34.7
== END 2024-09-12 09:48 | disposition home or self-care (01) ==
LOC: HO.HGI 09:21
PROVIDERS: PCP Internal Medicine; Visit Provider Internal Medicine Gastroenterology
DX: K50.90 Crohn's disease, unspecified, without complications (principal)
CPT/HCPCS: 99213

== ENCOUNTER → 2024-09-12 09:20 | Outpatient (BNVA) | payer OTHER, SELFPAY | PROVIDERS: PCP Internal Medicine; Visit Provider Internal Medicine Gastroenterology | DX: K50.90 Crohn's disease, unspecified, without complications (principal); Z79.899 Other long term (current) drug therapy | CPT/HCPCS: 99212 ==

== ENCOUNTER 2024-09-23 06:43 | Outpatient (REF) | payer OTHER, SELFPAY ==
[2024-09-23 07:47] LABS: Ferritin 26 ng/mL (10-250)
[2024-09-23 08:01] LABS: Folate 7.9 ng/mL (> or = 4.0); Vitamin B12 333 pg/mL (200-900)
== END 2024-09-23 06:44 | disposition home or self-care (01) ==
LOC: HO.LAB 06:43
PROVIDERS: PCP Internal Medicine; Visit Provider Internal Medicine Gastroenterology
DX: K50.90 Crohn's disease, unspecified, without complications (principal)
CPT/HCPCS: 36415; 82607; 82728; 82746; 85025

== ENCOUNTER 2024-12-01 07:31 | Emergency (ER) | payer OTHER, SELFPAY ==
--- NOTE | ~2024-12-01 | XR_ITS ---
EXAMINATION: XR CHEST CLINICAL INFORMATION: diff breathing COMPARISON: Chest x-ray to 624 TECHNIQUE: 2 views of the chest were obtained. FINDINGS: No significant abnormality is noted involving the heart, lungs, mediastinum, bony thorax or soft tissues. XR/XR chest 2V IMPRESSION: Unremarkable chest examination. Electronically signed by: Estevan Belle MD 12/01/2024 08:12 AM [facility]
[2024-12-01 07:34] VITALS: BP 116/69; PULSE 106; RESP 22; TEMP 36.1; O2SAT 98; BMI 32.3
--- NOTE | 2024-12-01 07:37 | ECG_ITS ---
Test Reason : DIFA BREATHING Blood Pressure : */* mmHG Vent. Rate : 88 BPM Atrial Rate : 88 BPM P-R Int : 156 ms QRS Dur : 84 ms QT Int : 418 ms P-R-T Axes : 45 21 21 degrees QTcB Int : 505 ms Normal sinus rhythm ST & T wave abnormality, consider inferior ischemia ST & T wave abnormality, consider anterolateral ischemia Prolonged QT Abnormal ECG When compared with ECG of 15-Dec-2023 13:26, T wave inversion now evident in Anterolateral leads Referred By: Generic ED Physician Electronically Signed By: YISSEL TRONCOSO MD
[2024-12-01 07:55] LABS: MANUAL DIFF FLAG NO
[2024-12-01 07:57] LABS: Basophils Absolute Auto 0.1 X10*3/uL (0.0-0.2); Eosinophils Percent Auto 0.6 % (0-4); Hematocrit 39.4 % (37.0-47.0); Hemoglobin 13.8 g/dl (12.0-16.0); Imm Gran Abs Auto 0.01 X10*3/uL (0.00-0.03); Imm Gran Pct Auto 0.2 % (0.0-0.4); Lymphocytes Absolute Auto 1.9 X10*3/uL (1.2-4.9); Lymphocytes Percent Auto 38.7 % (20-40); Mean Corpuscular Hemoglobin 29.2 pg (27.0-33.0); Mean Corpuscular Volume 83.3 fL (80.0-98.0); Mean Platelet Volume 11.8 fL (9.4-12.3); Monocytes Absolute Auto 0.3 X10*3/uL (0.1-1.2); Monocytes Percent Auto 6.3 % (2-11); Neutrophils Absolute Auto 2.6 x10*3/uL (2.0-8.3); Neutrophils Percent Auto 53.2 % (45-73); Platelet Count 285 X10*3/uL (160-400); Red Blood Count 4.73 X10*6/uL (4.20-5.50); Red Cell Distribution Width 12.8 % (11.0-16.0); White Blood Count 4.9 X10*3/uL (4.8-10.8)
[2024-12-01 08:11] LABS: Alanine Aminotransferase 9 U/L (0-31); Albumin Level 4.5 g/dL (3.5-5.0); Alkaline Phosphatase 126 U/L (39-117); Anion Gap 17 (12-20); Aspartate Amino Transferase 21 U/L (5-31); Bilirubin Total 0.5 mg/dL (0.0-1.0); Blood Urea Nitrogen 22 mg/dL (9-16); Carbon Dioxide 22 mmol/L (22-29); Chloride 101 mmol/L (96-108); Creatinine Clr Calc Pharmacy 36.2; Estimated Glomerular Filt Rate 34; Glucose Random 151 mg/dL (60-115); Sodium 137 mmol/L (135-145); Total Protein 8.2 g/dL (6.5-8.0)
[2024-12-01 09:11] LABS: Influenza A PCR NEGATIVE (Negative); Influenza B PCR NEGATIVE (Negative); Resp Syncy Virus RNA Qual PCR NEGATIVE (Negative); SARS COV2 PCR INHOUSE NEGATIVE (Negative)
--- NOTE | 2024-12-01 09:36 | ED_ITS ---
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 intake for 1 week. She states she has been sick for 1 week. She states waking up today and feeling short of breath. She states no vomiting over the last week or abdominal pain. She states no change to bowel habits or urinary symptoms. She states no trauma. She states no chest pain. She states no heart or lung disease. She states no cough or hemoptysis. She states no leg swelling or pain. She states taking her medications as prescribed. She states feeling nausea at this time . Related Data Home Medications ?Medication ?Instructions ?Recorded ?Confirmed aspirin 81 mg tablet,delayed 81 mg PO DAILY 03/12/21 01/20/23 release lamotrigine 150 mg tablet 150 mg PO DAILY@0730 03/12/21 01/15/23 lamotrigine 200 mg tablet 200 mg PO BEDTIME 03/12/21 01/15/23 tizanidine 4 mg tablet 4 mg PO TID PRN Pain 03/12/21 01/15/23 rivaroxaban 20 mg tablet 20 mg PO BEDTIME 05/07/21 01/20/23 topiramate 50 mg tablet 50 mg PO DAILY 05/07/21 01/15/23 duloxetine 60 mg capsule,delayed 60 mg PO BID 06/20/22 01/15/23 release ubrogepant 100 mg tablet (Ubrelvy) 100 mg PO PRN Headache 06/20/22 acetaminophen 650 mg 0 mg PO 02/06/23 tablet,extended release meclizine 25 mg tablet 25 mg PO DAILY PRN 02/06/23 amlodipine 10 mg tablet 10 mg PO DAILY 10/19/23 cyanocobalamin (vitamin B-12) 2,500 mcg sublingual DAILY 10/19/23 2,500 mcg sublingual tablet (Vitamin B-12) ferrous sulfate 325 mg (65 mg mg PO 10/19/23 iron) tablet (FeroSul) folic acid 1 mg tablet 1 mg PO DAILY 12/11/23 ramelteon 8 mg tablet 8 mg PO DAILY 10/19/23 omeprazole 40 mg capsule,delayed 40 mg PO DAILY 03/14/24 release quetiapine 200 mg tablet 200 mg PO BEDTIME 03/14/24 torsemide 10 mg tablet 10 mg PO DAILY 03/14/24 clonazepam 1 mg tablet mg PO 09/12/24 Previous Rx's ?Medication ?Instructions ?Recorded loperamide 2 mg capsule 2 mg PO Q6H PRN loose stool #10 02/06/23 (Anti-Diarrheal (loperamide)) caps cyclobenzaprine 10 mg tablet 10 mg PO BEDTIME PRN muscle spasm 05/28/23 #10 tabs lidocaine 5 % topical patch 1 patch topical DAILY #15 ea 08/26/23 budesonide 3 mg 9 mg (3 x 3 mg) PO QAM 30 days #90 01/06/24 capsule,delayed,extended release ea lansoprazole 15 mg capsule,delayed 15 mg PO BID 90 days #180 caps 09/12/24 release Allergies Allergy/AdvReac Type Severity Reaction Status Date / Time apixaban [From Eliquis] Allergy Intermediate Itching, Verified 12/01/24 07:37 rash prednisone Allergy Mild Unknown Verified 12/01/24 07:37 Review of Systems 2 Review of Systems: ROS as per HPI [facility] Past Medical History Medical History Crohn disease Anxiety and depression History of CVA (cerebrovascular accident) On anticoagulant therapy Vitamin D deficiency KAYODE (obstructive sleep apnea) LOC (loss of consciousness) Migraine IBS (irritable bowel syndrome) Fibromyalgia Chronic depression Bipolar disorder HTN (hypertension) Anxiety H/O blood clots H/O stroke within last year Surgical History Hx of tubal ligation History of Hx of cholecystectomy Hx of endoscopy History of colonoscopy Family History Family History Father Hx of type 1 diabetes mellitus History of high cholesterol Mother Family history of high blood pressure Social History Social History Household Members: None Household Members Other:: mother Are you a primary wound care coordinator to a significant other at home: No Do you presently have visiting nurse or other home services: No Alcohol intake: never Patient Tobacco Use Status: Never used Tobacco Smoked in Last 30 Days: No Use of substances other than those prescribed or required for medical reasons: No Advance Directives: No Advance Directives Information Provided: Yes Do you have a plan to hurt others: No Plan Patient : No Current occupational status: disabled Physical Exam ED Vital Signs: Vital Signs - 24 hr 12/01/24 07:34 Temperature 97.0 F Pulse Rate 106 H Respiratory Rate 22 H Blood Pressure 116/69 Pulse Oximetry 98 Oxygen Delivery Method Room Air BMI result Body Mass Index 32.3 Gen: NAD, AOx3 HEENT: NCAT, EOMI, normal conjunctiva CV: RRR Pulm: CTAB, no increased work of breathing GI: Soft, NTND, no rebound, guarding or rigidity MSK: No asymmetrical calf edema/erythema /TTP Neuro: Grossly non focal Medications Administered Discontinued Medications Generic Name Dose Route Start Last Admin Trade Name Freq PRN Reason Stop Dose Admin Sodium Chloride 1,000 mls @ 999 mls/hr 12/01/24 09:15 12/01/24 10:04 Ns IV 12/01/24 10:15 999 mls/hr .Q1H1M JANETT Administration Potassium Chloride 40 meq 12/01/24 10:23 12/01/24 11:20 Potassium Chloride Er 20 Meq Tab.Er.Prt PO 12/01/24 10:24 40 meq ONCE ONE Administration Medical Decision Making Medical Decision Making MDM Narrative: Differential diagnosis includes, but is not limited toViral illness, dehydration, acute kidney injury, electrolyte abnormality, ACS, pneumothorax, pericardial effusion, cardiomyopathy. Patient is afebrile and hemodynamically stable on room air. Exam is benign and reassuring. I reviewed and interpreted the patient's labs, EKG, chest x-ray and echocardiogram as below. On re-examination, patient is well-appearing and in no acute distress. Patient states symptoms have resolved. Patient is tolerating oral intake. There is no indication for further emergent evaluation in this otherwise well-appearing patient as above. Patient is provided written and verbal instructions, educational materials, recommendations for close outpatient follow-up with primary care and Cardiology, strict return precautions and teach back is performed. Patient states understanding and agreement with plan of care. Patient is discharged home in stable and improved condition. Admission/Observation Consideration of admission/observation: Escalation of care including admission/observation considered Consult Healthcare Provider Management of the patient was discussed with: Outside Production Inspector ( Embroidery Machine Operator, Dr. Baltazar.) I discussed with the above retail wireless sales consultant infrastructure design engineer who states low suspicion for ACS given reassuring serial troponin. He recommends urgent echocardiogram, which is ordered. We discussed echocardiogram results (as below ) and cardiology has cleared patient for discharge home and outpatient follow-up for stress test. He does not recommend admission. Lab Data MDM Lab Attestation statement: I reviewed the patient's lab results. I independently reviewed and interpreted the patient's CBC, metabolic panel a troponin. Troponin 3.3. We will obtain serial troponin. There are no cell line derangements. there is evidence of acute kidney injury with BUN 22 and creatinine 1.61 compared to previous 12 and 0.95, respectively in June 2024) - this is likely prerenal in nature and secondary to decreased oral intake. For which patient is provided 1 L IV NS. D-dimer reassuring at 306. Patient does have mild hypokalemia of 3.0, which is repleted. 12/01/24 07:48 12/01/24 07:48 Labs: Lab Results 12/01/24 12/01/24 Range/Units 07:48 10:03 WBC 4.9 (4.8-10.8) X10*3/uL RBC 4.73 (4.20-5.50) X10*6/uL Hgb 13.8 D (12.0-16.0) g/dl Hct 39.4 (37.0-47.0) % MCV 83.3 (80.0-98.0) fL MCH 29.2 (27.0-33.0) pg MCHC 35.0 (31.0-35.0) g/dl RDW 12.8 (11.0-16.0) % Plt Count 285 (160-400) X10*3/uL MPV 11.8 (9.4-12.3) fL Immature Gran % (Auto) 0.2 (0.0-0.4) % Neut % (Auto) 53.2 (45-73) % Lymph % (Auto) 38.7 (20-40) % Bourbon % (Auto) 6.3 (2-11) % Eos % (Auto) 0.6 (0-4) % Baso % (Auto) 1.0 (0-2) % Lymph # (Auto) 1.9 (1.2-4.9) X10*3/uL Bourbon # (Auto) 0.3 (0.1-1.2) X10*3/uL Eos # (Auto) 0.0 (0.0-0.4) X10*3/uL Baso # (Auto) 0.1 (0.0-0.2) X10*3/uL Abs Immat Gran (auto) 0.01 (0.00-0.03) X10*3/uL Absolute Neuts (auto) 2.6 (2.0-8.3) x10*3/uL Absolute Nucleated RBC 0.000 (0.0-0.012) X10*3/uL Nucleated RBC % (auto) 0.0 (0.0-0.2) /100WBC D-Dimer High Sensitivty 306 NG/ML Sodium 137 (135-145) mmol/L Potassium 3.0 L (3.3-5.1) mmol/L Chloride 101 (96-108) mmol/L Carbon Dioxide 22 (22-29) mmol/L Anion Gap 17 (12-20) BUN 22 H (9-16) mg/dL Creatinine 1.61 H (0.5-1.4) mg/dL Estim Creat Clear Calc 36.2 Estimated GFR 34 Random Glucose 151 H (60-115) mg/dL Calcium 10.0 D (8.4-10.2) mg/dL Magnesium 1.8 (1.6-2.6) mg/dL Total Bilirubin 0.5 (0.0-1.0) mg/dL AST 21 (5-31) U/L ALT 9 (0-31) U/L Alkaline Phosphatase 126 H (39-117) U/L Troponin I High Sens 3.3 4.0 (<3.5-17.0) ng/L Total Protein 8.2 H (6.5-8.0) g/dL Albumin 4.5 (3.5-5.0) g/dL Influenza Type A (PCR) NEGATIVE (Negative) Influenza Type B (PCR) NEGATIVE (Negative) RSV RNA Qual (PCR) NEGATIVE (Negative) SARS-CoV-2 RNA (RT-PCR) NEGATIVE (Negative) Independent Interpretation I performed an independent interpretation of an: EKG and Plain X-Ray Interpretation: I independently reviewed and interpreted the patient's chest x-ray and EKG. Chest x-ray demonstrates no pleural effusion, pneumothorax or focal consolidation. I independently reviewed and interpreted the patient's EKG, which demonstrates sinus rhythm at 88 beats per minute, FL 166, QRS 84, QTC 505, T-wave inversions leads V3-V6, no STEMI ( compared to previous EKG December 15, 2023 T-wave inversions are new ) . Repeat EKG is obtained, which I independently reviewed and interpreted. EKG demonstrates sinus rhythm at 72 beats per minute, FL 176, QRS 88, QTC 46, T-wave inversion in lead V1-V6 Radiology Impression Discussion of test interpretation with radiology: I have reviewed the radiologist's reading. Radiologist Impression: XR/XR chest 2V IMPRESSION: Unremarkable chest examination. Electronically signed by: Estevan Belle MD 12/01/2024 08:12 AM [facility] Dictated By: Estevan Belle MD Signed By: <Electronically signed by Estevan Belle MD in OV> 12/01/24 0812 Conclusions: - 1. Normal LV ejection fraction of 60 65% with grade 1 diastolic dysfunction 2. Normal cardiac valvular Dopplers 3. Upper limits of normal ascending aortic size 4. No gross pericardial effusion Discharge Plan Discharge Clinical Impression: Acute dyspnea, T wave inversion in EKG, Acute kidney injury, Acute hypokalemia Patient Disposition: Home, Self-Care Instructions: Dyspnea (ED) Additional Instructions: You were seen and evaluated in the emergency room. Your blood work showed mildly low potassium and dehydration. You were given IV fluids for your dehydration and potassium pill. Please follow-up with your primary care doctor in the next 3-5 days to have your kidney function and electrolytes checked again. Your EKG showed some new changes, but your blood work and ultrasound of your heart was overall reassuring. We discussed these findings with our infrastructure design engineer who recommended you follow-up with your own infrastructure design engineer for a stress test. Please call your infrastructure design engineer office today to schedule follow up appointment in the next 1-2 days. Return to the emergency room if you develop any new concerning symptoms including, but not limited to chest pain, difficulty breathing, inability to eat/ drink or vomiting. Prescriptions: No Action budesonide 3 mg capsule,delayed,extend.release 9 mg PO QAM 30 Days Qty: 90 2RF lansoprazole 15 mg capsule,delayed release(DR/EC) 15 mg PO BID 90 Days Qty: 180 1RF lidocaine 5 % adhesive patch,medicated 1 patch topical DAILY Qty: 15 0RF Rx Instructions: leave on most painful area for up to 12 hrs cyclobenzaprine 10 mg tablet 10 mg PO BEDTIME PRN (Reason: muscle spasm) Qty: 10 0RF rivaroxaban 20 mg tablet 20 mg PO BEDTIME topiramate 50 mg tablet 50 mg PO DAILY tizanidine 4 mg tablet 4 mg PO TID PRN (Reason: Pain) lamotrigine 200 mg tablet 200 mg PO BEDTIME lamotrigine 150 mg tablet 150 mg PO DAILY@0730 aspirin 81 mg tablet,delayed release (DR/EC) 81 mg PO DAILY Ubrelvy 100 mg tablet 100 mg PO PRN (Reason: Headache) duloxetine 60 mg capsule,delayed release(DR/EC) 60 mg PO BID meclizine 25 mg tablet 25 mg PO DAILY PRN acetaminophen 650 mg tablet extended release 0 mg PO loperamide [Anti-Diarrheal (loperamide)] 2 mg capsule 2 mg PO Q6H PRN (Reason: loose stool) Qty: 10 0RF folic acid 1 mg tablet 1 mg PO DAILY ramelteon 8 mg tablet 8 mg PO DAILY ferrous sulfate [FeroSul] 325 mg (65 mg iron) tablet PO cyanocobalamin (vitamin B-12) [Vitamin B-12] 2,500 mcg tablet, sublingual 2,500 mcg sublingual DAILY amlodipine 10 mg tablet 10 mg PO DAILY omeprazole 40 mg capsule,delayed release(DR/EC) 40 mg PO DAILY quetiapine 200 mg tablet 200 mg PO BEDTIME torsemide 10 mg tablet 10 mg PO DAILY clonazepam 1 mg tablet PO Print Language: Andorran
[2024-12-01 09:38] LABS: Troponin-I High Sensitivity 3.3 ng/L (<3.5-17.0)
[2024-12-01] MEDS: 0.9 % Sodium Chloride 1,000 ML 999 ML IV (10:04)
[2024-12-01 10:17] LABS: D Dimer High Sensitivity 306 NG/ML
[2024-12-01 10:43] LABS: Magnesium 1.8 mg/dL (1.6-2.6)
--- NOTE | 2024-12-01 11:14 | ECG_ITS ---
Test Reason : SOB Blood Pressure : */* mmHG Vent. Rate : 72 BPM Atrial Rate : 72 BPM P-R Int : 176 ms QRS Dur : 88 ms QT Int : 444 ms P-R-T Axes : 42 21 93 degrees QTcB Int : 486 ms Normal sinus rhythm T wave abnormality, consider anterolateral ischemia Abnormal ECG When compared with ECG of 01-Dec-2024 07:42, T wave inversion more evident in Lateral leads Referred By: Gab Bellamy Electronically Signed By: YISSEL TRONCOSO MD
[2024-12-01] MEDS: Potassium Chloride ER 20 MEQ TAB.ER.PRT 40 MEQ PO (11:20)
--- NOTE | 2024-12-01 11:47 | CA_ITS ---
Transthoracic Echocardiogram Patient (Last, First, Middle): Melinda Martini, Gender: Female Date of : 1975 Age: 49 Procedure Date: 12/01/2024 Procedure Type: Transthoracic Echocardiogram Location: ER Height: 149.86 cm Weight: 72.58 kg BSA: 1.68 m2 Heart Rate: bpm BP: 16 / 69 mmHg Door Core Assembler: TOMMY Referring MD: Gab Bellamy MD Basting Cleaner: Yong Baltazar MD Symptoms: Dyspnea, T wave inversion Study Quality: Adequate ECG Rhythm: Sinus Conclusions: - 1. Normal LV ejection fraction of 60 65% with grade 1 diastolic dysfunction 2. Normal cardiac valvular Dopplers 3. Upper limits of normal ascending aortic size 4. No gross pericardial effusion Findings Peak Left Ventricle Normal left ventricular size, thickness, and systolic function. The visually estimated ejection fraction is between 60-65%. Spectral Doppler is indicative of an impaired relaxation filling pattern. E/E prime ratio is <8, consistent with normal filling pressures. Evidence suggests grade I (mild) diastolic dysfunction. Peak GLS is -22.3%, within normal limits. Right Ventricle Normal right ventricular cavity size and systolic function. Atria The left atrium is normal in size. There is no evidence of interatrial shunt. The right atrium is normal in size. Aortic Valve Normal aortic valve structure and function. There is no aortic valve stenosis. There is no aortic valve regurgitation. Mitral Valve Normal mitral valve structure and function. There is trace mitral valve regurgitation. There is no mitral valve stenosis. Pulmonic Valve The pulmonic valve is likely normal. Tricuspid Valve Likely normal tricuspid valve structure and function. Tricuspid regurgitation envelope is inadequate for calculation of right ventricular systolic pressure. Normal right atrial pressure. Great Vessels All visible segments of the aorta are normal in size. The pulmonary artery was not well visualized. Venous The inferior vena cava is normal in size and collapses greater than 50% with inspiration. Pericardium/Pleural There is no evidence of pericardial effusion. Prior Study Comparison no previous study in the last 5 years for comparison Measurements 2D Linear Measurements IVSd: 1.25 0.6-0.9/0.6-1.0 cm LVIDd: 3.08 3.9-5.3/4.2-5.9 cm LVIDd Index: 1.83 2.4-3.2/2.2-3.1 cm/m2 LVIDs: 2.20 2.0-3.6 cm LVPWd: 1.03 0.7-1.1 cm LA Diam: 2.00 2.7-3.8/3.0-4.0 cm LAIDs Index: 1.19 1.5-2.3 cm/m2 LV Mass: 129.76 67-162/88-224 g LV Mass Index: 77.24 43-95/49-115 g/m2 LVOT Diam: 1.90 3.0+(-)1.3 cm 2D Systolic Function EF 4C: 60.80 >55% EF 2C: 64.00 >55% EF BiP: 63.60 >55% Mitral Valve MV Pk E: 0.54 MV PK A: 0.84 MV Decel Time: 213.00 E/A: 0.60 E'Lateral: 9.79 E'Medial: 4.79 E/E' Med: 11.30 E/E' Lat: 5.50 PHT: 62.00 MVA PHT: 3.55 Decel Stevens: 2.53 Aortic Valve AoV Pk Colin: 1.87 AoV Mn Colin: 1.28 AoV VTI: 0.32 AoV Pk Grad: 14.00 Aov Mn Grad: 7.00 PAMELA Cont.VTI: 2.22 AI Pk Colin: 4.86 AI Stevens: 2.59 LVOT LVOT Pk Colin: 1.34 LVOT Mn Colin: 0.91 LVOT VTI: 0.25 LVOT Pk Grad: 7.00 LVOT Mn Grad: 4.00 LVOT Diam: 1.90 LVOT Area: 2.84 Diastolic Function MV Pk E: 0.54 MV Pk A: 0.84 E/A: 0.60 E'Medial: 4.79 E/E' Med: 11.30 E' Laterial: 9.79 E/E' Lat: 5.50 Right Ventricle TAPSE (mm): 20.70 TVS' Colin: 11.00 Tricuspid Valve RA Press: 3.00 Great Vessels Aorta Sinus of Valsalva: 2.86 2.0-3.[address] Ridge: 2.37 1.7-3.4 cm Ao Asc: 3.50 2.1-3.4 cm Updated in Other Vendor System with Status of Final Yong Baltazar MD electronically signed on 12/01/2024 12:53:41 PM with status of Final
[2024-12-01 13:47] VITALS: BP 123/89; PULSE 75; RESP 16; TEMP 36.8; O2SAT 98
[2024-12-01 13:52] VITALS: BP 123/89; PULSE 75; RESP 16; TEMP 36.8; O2SAT 98
== END 2024-12-01 13:53 | disposition home or self-care (01) ==
PROVIDERS: Emergency Provider Emergency Medicine; PCP Internal Medicine
DX: E87.6 Hypokalemia (principal); N17.9 Acute kidney failure, unspecified; R94.31 Abnormal electrocardiogram [ECG] [EKG]; R06.00 Dyspnea, unspecified; R42 Dizziness and giddiness; R11.0 Nausea; Z03.818 Encounter for observation for suspected exposure to other biological agents ruled out
CPT/HCPCS: 0241U; 36415; 71046; 80053; 83735; 84484; 85025; 85379; 93005; 93306; 93356; 99284; 99285; Q9957

== ENCOUNTER → 2024-12-01 07:37 | Outpatient (BNV) | payer OTHER, SELFPAY | PROVIDERS: Emergency Provider Emergency Medicine; PCP Internal Medicine; Visit Provider Internal Medicine Cardiovascular Disease | DX: R06.00 Dyspnea, unspecified (principal); R94.31 Abnormal electrocardiogram [ECG] [EKG] | CPT/HCPCS: 93010; 93306; 93356 ==

== ENCOUNTER 2025-03-21 09:27 | Emergency (ER) | payer OTHER, SELFPAY ==
--- NOTE | ~2025-03-21 | CT_ITS ---
EXAMINATION: CT HEAD WITHOUT CONTRAST CLINICAL INFORMATION: dizziness, gait instability COMPARISON: January 01, 2023. TECHNIQUE: Contiguous axial imaging was performed from the skull base to vertex without intravenous administration of contrast. This CT examination was performed using dose optimization techniques as appropriate, variously including the following: *Automated exposure control *Adjustment of mA and/or kV according to patient size (this includes techniques or standardized protocols for targeted exams where dose is matched to indication/reason for exam; i.e. extremities or head) *Use of iterative reconstruction technique DLP: 568 mGy-cm FINDINGS: No acute intracranial hemorrhage, mass effect, midline shift, hydrocephalus or herniation. [place]-white matter differentiation is normal. There is a focal wedge-shaped morphology encephalomalacia/extra-axial CSF equivalent abnormality, right parietal/temporal/occipital. Sellar/suprasellar region demonstrated no gross masses. Craniocervical junction demonstrates normal position of the cerebellar tonsils and no gross hemorrhage. The bony calvarium is intact. Paranasal sinuses are aerated without air-fluid levels. Tympanic cavities and mastoid cells are aerated. CT/CT head/brain wo IV con IMPRESSION: No acute intracranial hemorrhage or acute brain abnormality by CT. Focal volume loss/encephalomalacia associated extra-axial CSF equivalent attenuation, right temporoparietal occipital. Electronically signed by: Patel Ralph MD 03/21/2025 11:09 AM EDT
[2025-03-21 09:35] VITALS: BP 138/92; BP 150/94; PULSE 85; PULSE 98; RESP 16; TEMP 36.7; O2SAT 98; BMI 30.3
[2025-03-21 09:38] VITALS: BP 150/94; PULSE 85; RESP 16; TEMP 36.7; O2SAT 98
--- NOTE | 2025-03-21 09:41 | PC.NURSE ---
Pt comes to ED today via EMS with c/o dizziness, n/v, and weakness x2 days. Pt also reports increased thirst. Pt reports Hx of similar complaint years ago that was resolved by blood work and 2 days inpatient. Pt is A&Ox3, VSS, and tearful. Family at beside. Awaiting ED provider.
--- OUTSIDE RECORDS SUMMARY | 2025-03-21 10:31 | XMS_ITS | Data Portability ---
Author Organization [employer] [employer] [facility] [employer] Address [address] [place] [id number] Care Team Providers Care College Instructor Name Role Phone [facility] Referring Prov ider HIM CCA OTHER Assessment Encounter Date Assessment Date Assessment LastModified by Organization Details LastModified Time 01/12/2023 01/12/2023 I have reviewed and agree with the assessment and plan as documented by the product lister. I provided real-time medical direction for this encounter and was immediately available to provide additional phone-based assistance as needed. 47F, on xarelto, with right sided abdominal/flank pain x 24 hours. Pt with no known urinary symptoms. No nausea/vomiting/ diarrhea. Pt took Tylenol 650mg 3 hours ago with no relief. Pt with normal BM. Vitals reveal no evidence for acute findings. U/A reveals no acute findings. Pt feels it could be consistent with fibromyalgia. No red flags noted today on examination. Will have patient continue with conservative management, including continuing Tylenol and ice/heat to the area. Patient education and counseling, supportive care, and strict return precautions given. [email or web address] Not available 01/12/2023 20:05:34 03/24/2024 03/24/2024 I provided real -time medical direction via phone for this encounter, and was available for additional phone based assistance as needed. I have reviewed and agree with the Assessment and Plan as documented by the Crystal Finisher. We discussed the diagnostic uncertainty of home visits and the risk associated with this. In this case the patient and I felt this to be an acceptable and reasonable amount of risk given the benefit of avoiding an ED visit. Advise close follow-up with PCP next week and to call us for another visit if she felt she needed 1. The patient given the opportunity to ask questions. Advised if develops CP/severe SOB/turning blue/uncontrolle d n/v/d or black/bloody emesis or stool/ AMS/ syncope/ hi fever to call 911-she verbalized understanding of instructions to the medic. [email or web address] Not available 03/24/2024 12:41:37 10/10/2024 10/10/2024 Evaluation in the field was performed by my product lister colleague, as noted above, I provided real-time direction and supervision for this visit. This is a 49yo F with hx of HTN, vertigo, CVA, PE on Xarelto who has requested an [facility] evaluation for multiple complaints. Pt states this morning her BP was elevated, 140/100 before taking her home BP meds amlodipine. She was also dizzy so she took meclizine which is what she usually does to manage vertigo. The dizziness has completely resolved, and she currently denies any difficulty walking, headache, vision change or loss, extremity weakness or numbness. At no point did she have chest pain or shortness of breath. She also states she thinks she is having a fibromyalgia flare do to aching in her legs and would like a shot of Toradol. She denies leg swelling or fall/injury. Says she has been given Toradol before by doctors in her home. She has limitations on what she can take because she is on Xarelto. Already took Tylenol without much relief. Has a prescription for Tramadol but hasn't refilled it for this month. PE: General: Awake & alert, NAD Respiratory: Chest rise equal bilat, no increased wob CV: Regular rate, normal peripheral perfusion MSK: No deformities or edema Neuro: A&Ox4. No focal deficits. Impression: Myalgia Vertigo Hypertension Plan: -BP had already improved by time of medic arrival: 135/88. VSS otherwise. -Vertigo resolved by time of medic arrival as well after having taken meclizine. -No further testing or treatment needed for the above chronic conditions. -Pt advised Toradol is an NSAID and is not meant to be mixed with Xarelto due to increased bleeding risk. Pt says she didn't realize it was an NSAID. Advised to try other modalities of pain control. -Pt will call PCP to get her Tramadol refill. Disposition: Remain at home We discussed the diagnostic uncertainty of home visits and the risk associated with this. In this case, the patient and I felt this to be an acceptable and reasonable amount of risk given the benefit of avoiding an ED visit. We discussed the need to seek care urgently/emergen tly in the setting of any new or worsening serious symptoms, particularly dizziness that does not resolve, headache, chest pain. [email or web address] Not available 10/10/2024 10:02:42 Plan of Treatment Reminders Order Date Submit Date Provider Last Modified By Organization Details Last Modified Time Details Appointments None recorded. Lab rapid flu (A+B) 2024 025 [email or web address] [facility] - [facility], [address] [place] [address], [id number] 5 16:46:26 rapid SARS CoV 2 Ag, QL IA, respiratory specimen 2024 025 [email or web address] [facility] - [facility], [address] [place] [address], [address] [place] [address] 5 16:46:26 BMP, serum or plasma 2024 025 [email or web address] [facility] - [facility], [address] [place] [address], [address] [place] [address] 5 16:46:26 rapid SARS CoV 2 Ag, QL IA, respiratory specimen 2023 024 [email or web address] 0 [facility] - [facility], [address] [place] [address], [address] [place] [address] 4 11:31:33 BMP, serum or plasma 2023 024 [email or web address] 0 [facility] - [facility], [address] [place] [address], [id number] 4 11:31:35 Referral None recorded. Procedures None recorded. Surgeries None recorded. Imaging electrocard iogram 2023 024 [email or web address] [facility] - [facility], [address] [place] [address], [id number] 4 12:44:16 Medication Orders potassium chloride ER 20 mEq tablet,exte nded release 2023 024 [email or web address] [id number], [address] [place], [address], 4 12:44:16 potassium chloride ER 20 mEq tablet,exte nded release(par t/cryst) 2023 024 [id number], [address], [place], [address], 12:44:17 Patient TargetsNo targets recorded. Patient InstructionsNo instructions recorded. Reason for Referral None Reported. Results Created Date Observation Date Name Description Value Unit Range Abnormal Flag Note LastModifiedBy Organization Detail LastModifiedTime 03/24/20 24 03/24/2024 rapid SARS CoV 2 Ag, QL IA, respi rator y speci men rapid SARS CoV 2 Ag, QL IA, respiratory specimen negati ve Not Available [facility] [address] [place] [address], [id number] 03/24/2024 11:30:20 03/24/20 24 03/24/2024 BMP, serum or plasm a K+ 3.1 Not Available [facility] - [facility] [address] [place] [address], [id number] 03/24/2024 11:30:26 03/24/20 24 03/24/2024 elect анна colingr am No observ ation record ed. [email or web address] [facility] - [facility] [address] [place] [address], [id number] 03/24/2024 12:44:13 Result Notes None recorded. Procedures Surgical History None recorded. Imaging Results Imaging Date Name Status LastModified by Organization Details LastModified Time 03/24/2024 [facility] [address] [place] [address], [id number] 03/24/2024 12:44:13 Procedure Notes None recorded. Medical Equipment None Reported. Allergies Allergen ID Allergen Name Allergen Category Reaction Reaction Severity Criticality Documentation Date Start Date Code Code System Note Provider Name and Address Organization Details Recorded Time 1539 Eliquis medicatio n Not available Not available Not available 10/21/2022 95018 36 RxNorm Not Available [facility] - production 4 08:41:39 5089 prednison e medicatio n Not available Not available Not available 03/24/2024 8640 RxNorm Not Available [facility] - production 4 08:41:39 Medications Name Sig Start Date Stop Date Status Note LastModified by Organization Details LastModified Time fluoxetine 40 mg capsule TAKE 1 CAPSULE BY MOUTH EVERY MORNING active Not Available Not Available No t Available cyclobenzapri ne 10 mg tablet TAKE 1 TABLET BY MOUTH 3 TIMES A DAY NEEDED FOR SPASMS FOR 7 DAYS active Not Available Not Available No t Available atorvastatin 40 mg tablet active Not Available Not Available Not Available lamotrigine 150 mg tablet TAKE 1 TABLET BY MOUTH EVERY MORNING active Not Available Not Available No t Available bupropion HCl SR 150 mg tablet,12 hr sustained-rel ease active Not Available Not Available Not Available clonidine HCl 0.1 mg tablet TAKE 1 TABLET BY MOUTH TWICE A DAY active Not Available Not Available No t Available gabapentin 600 mg tablet active Not Available Not Availabl e Not Available lamotrigine 200 mg tablet TAKE 1 TABLET BY MOUTH AT BEDTIME active Not Available Not Available No t Available quetiapine 300 mg tablet active Not Available Not Availabl e Not Available albuterol sulfate 2.5 mg/3 mL (0.083 %) solution for nebulization INHALE 1 VIAL VIA NEBULIZER EVERY 6 HOURS NEEDED FOR WHEEZING active Not Available Not Available No t Available tizanidine 4 mg tablet TAKE 2 TABLETS BY MOUTH THREE TIMES DAILY active Not Available Not Available No t Available prednisone 20 mg tablet TAKE 2 TABLETS BY MOUTH DAILY FOR 5 DAYS active Not Available Not Available No t Available clonazepam 0.5 mg tablet TAKE 1 TABLET BY MOUTH THREE TIMES DAILY active Not Available Not Available No t Available quetiapine 200 mg tablet active Not Available Not Availabl e Not Available clonazepam 1 mg tablet active Not Available Not Available No t Available torsemide 10 mg tablet TAKE 1 TABLET BY MOUTH EVERY DAY active Not Available Not Available No t Available capsaicin 0.075 % topical cream APPLY TO THE AFFECTED AREA(S) BY TOPICAL ROUTE 3 TIMES PER DAY 2021 active Not Available Not Available Not Avai lable amlodipine 5 mg tablet active Not Available Not Available No t Available chlorthalidon e 50 mg tablet TAKE 1 TABLET BY MOUTH EVERY DAY active Not Available Not Available No t Available omeprazole 40 mg capsule,delay ed release TAKE 1 CAPSULE BY MOUTH DAILY active Not Available Not Available No t Available aspirin 81 mg tablet,delaye d release TAKE 1 TABLET BY MOUTH EVERY DAY active Not Available Not Available No t Available tramadol 50 mg tablet TAKE 1 TABLET BY MOUTH EVERY 4 HOURS NEEDED FOR PAIN active Not Available Not Available No t Available quetiapine 100 mg tablet TAKE 1 TABLET BY MOUTH AT BEDTIME active Not Available Not Available No t Available zolmitriptan 5 mg tablet active Not Available Not Available Not Available acetaminophen ER 650 mg tablet,extend ed release active Not Available Not Available N ot Available triamcinolone acetonide 0.1 % dental paste APPLY TO THE AFFECTED AREA THREE TIMES DAILY APPLY TO LESIONS IN UPPER GUMS active Not Available Not Available N ot Available trazodone 100 mg tablet TAKE 1 TABLET BY MOUTH AT BEDTIME active Not Available Not Available No t Available meclizine 25 mg tablet TAKE 1 TABLET BY MOUTH THREE TIMES A DAY NEEDED FOR DIZZINESS active Not Available Not Available No t Available sulfacetamide sodium 10 % eye drops INSTILL 1 DROP IN BOTH EYES FOUR TIMES DAILY FOR 7 DAYS active Not Available Not Available No t Available amlodipine 10 mg tablet TAKE 1 TABLET BY MOUTH EVERY DAY active Not Available Not Available No t Available benzonatate 100 mg capsule TAKE 1 TO 2 CAPSULES BY MOUTH 3 TIMES A DAY FOR 7 DAYS NEEDED FOR COUGH active Not Available Not Available No t Available clonazepam 2 mg tablet active Not Available Not Available No t Available lansoprazole 15 mg capsule,delay ed release TAKE 1 CAPSULE BY MOUTH TWICE A DAY active Not Available Not Available No t Available omeprazole 20 mg capsule,delay ed release active Not Available Not Available N ot Available Lupron Depot 3.75 mg intramuscular syringe kit active Not Available Not Available Not Available folic acid 1 mg tablet active Not Available Not Available No t Available morphine ER 15 mg tablet,extend ed release TAKE 1 TABLET BY MOUTH EVERY 12 HOURS THIS IS A 2 WEEK SUPPLY active Not Available Not Available No t Available mupirocin 2 % topical ointment APPLY TOPICALLY TO THE AFFECTED AREA THREE TIMES DAILY FOR 7 DAYS APPLY A THIN LAYER TO LESIONS IN NOSTRILS active Not Available Not Available No t Available norethindrone acetate 5 mg tablet TAKE 2 TABLETS BY MOUTH EVERY DAY active Not Available Not Available No t Available cefuroxime axetil 500 mg tablet TAKE 1 TABLET BY MOUTH TWICE A DAY active Not Available Not Available No t Available fluocinonide 0.05 % topical cream APPLY TO AFFECTED AREA 4 TIMES A DAY active Not Available Not Available No t Available dicyclomine 10 mg capsule TAKE 1 CAPSULE BY MOUTH FOUR TIMES DAILY NEEDED FOR PAIN active Not Available Not Available No t Available loratadine 10 mg tablet TAKE 1 TABLET BY MOUTH EVERY DAY active Not Available Not Available No t Available amoxicillin 875 mg-potassium clavulanate 125 mg tablet TAKE 1 TABLET BY MOUTH TWICE DAILY active Not Available Not Available No t Available oxycodone 5 mg tablet TAKE 1 TABLET BY MOUTH EVERY 6 HOURS NEEDED FOR PAIN active Not Available Not Available No t Available Vitamin B-12 2,500 mcg sublingual tablet DISSOLVE 1 TABLET UNDER THE TONGUE DAILY active Not Available Not Available No t Available aripiprazole 30 mg tablet active Not Available Not Available Not Available cyclobenzapri ne 5 mg tablet active Not Available Not Available Not Available Klor-Con M20 mEq tablet,extend ed release Take 1 tablet every day by oral route for 3 days. active Not Available Not Available No t Available topiramate 50 mg tablet active Not Available Not Available No t Available duloxetine 30 mg capsule,delay ed release active Not Available Not Available N ot Available duloxetine 60 mg capsule,delay ed release TAKE 1 CAPSULE BY MOUTH TWICE DAILY active Not Available Not Available No t Available tizanidine 4 mg capsule TAKE 1 CAPSULE BY MOUTH THREE TIMES DAILY NEEDED active Not Available Not Available No t Available ramelteon 8 mg tablet TAKE 1 TABLET BY MOUTH AT BEDTIME active Not Available Not Available No t Available quetiapine 50 mg tablet active Not Available Not Available No t Available quetiapine 400 mg tablet active Not Available Not Availabl e Not Available FeroSul 325 mg (65 mg iron) tablet TAKE 1 TABLET BY MOUTH TWO TIMES A DAY active Not Available Not Available No t Available diclofenac 1 % topical gel active Not Available Not Availabl e Not Available Minerin Creme topical APPLY TOPICALLY TO AFFECTED AREA DAILY active Not Available Not Available N ot Available Latuda 40 mg tablet TAKE 1 TABLET BY MOUTH EVERY EVENING WITH MEALS active Not Available Not Available N ot Available Latuda 80 mg tablet TAKE 1 TABLET BY MOUTH EVERY EVENING WITH MEALS active Not Available Not Available N ot Available Xarelto 20 mg tablet active Not Available Not Available Not Available lidocaine 5 % topical ointment active Not Available Not Available Not Available potassium chloride ER 20 mEq tablet,extend ed release Take 2 tablets by oral route. 2023 active Not Available Not Available Not Avai lable Belsomra 15 mg tablet TAKE 1 TABLET BY MOUTH AT BEDTIME active Not Available Not Available No t Available Vraylar 1.5 mg capsule active Not Available Not Available N ot Available Vraylar 4.5 mg capsule TAKE 1 CAPSULE BY MOUTH EVERY NIGHT AT BEDTIME active Not Available Not Available No t Available Vraylar 3 mg capsule active Not Available Not Available Not Available Ubrelvy 100 mg tablet TAKE 1 TABLET BY MOUTH ONCE NEEDED FOR MIGRAINE MAY REPEAT DOSE IN 2 HOURS IF NEEDED active Not Available Not Available No t Available Flowflex COVID-19 Antigen Home Test kit active Not Available Not Available Not Available Vitals Date Recorded Respiratory rate Heart rate Body height Body weight Oxygen saturation Oxygen saturation in Arterial blood by Pulse oximetry Body temperature Systolic blood pressure Diastolic blood pressure Provider Name and Address Organization Details Last Updated DateTime 3 16 /min 68 /min 149.86 cm 68335.4 8 g 100 % 100 % 97.9 [degF] 117 mm[Hg] 79 mm[Hg] Not Available [employer] [employer] 3 14:29:42 Date Recorded Body temperature Oxygen saturation Oxygen saturation in Arterial blood by Pulse oximetry Respiratory rate Heart rate Systolic blood pressure Diastolic blood pressure Provider Name and Address Organization Details Last Updated DateTime 4 98.4 [degF] 98 % 98 % 16 /min 91 /min 160 mm[Hg] 88 mm[Hg] Not Available [employer] 4 11:24:02 Date Recorded Heart rate Oxygen saturation Oxygen saturation in Arterial blood by Pulse oximetry Respiratory rate Body temperature Systolic blood pressure Diastolic blood pressure Provider Name and Address Organization Details Last Updated DateTime 4 84 /min 98 % 98 % 16 /min 99.7 [degF] 135 mm[Hg] 88 mm[Hg] Not Available [employer] 4 09:37:43 Date Recorded Body weight Respiratory rate Body temperature Heart rate Body height Oxygen saturation Oxygen saturation in Arterial blood by Pulse oximetry Systolic blood pressure Diastolic blood pressure Provider Name and Address Organization Details Last Updated DateTime 5 85351.7 2 g 19 /min 104 [degF] 89 /min 149.86 cm 100 % 100 % 119 mm[Hg] 80 mm[Hg] Not Available [employer] 5 12:26:49 Date Recorded Body weight Heart rate Oxygen saturation Oxygen saturation in Arterial blood by Pulse oximetry Body temperature Respiratory rate Systolic blood pressure Diastolic blood pressure Provider Name and Address Organization Details Last Updated DateTime 3 46081.4 8 g 90 /min 98 % 98 % 100 [degF] 18 /min 147 mm[Hg] 84 mm[Hg] Not Available [facility] 3 20:00:20 Social History None recorded. Functional Status None recorded. Mental Status None recorded. Family History Nothing Reported. Medical History No medical history recorded. Gynecological HistoryNo gynecological history recorded. Obstetrics History GPAL:G 0 P 0 0 0 0 Past Encounters Encounter ID Performer Location Encounter Start Date Encounter Closed Date Diagnosis/Indication Diagnosis SNOMED-CT Code Diagnosis ICD10 Code Diagnosis Note [id number] Ochoa Hernandez MD [facility] - [facility] [address] [place] [phone] 02/27/2022 17:53:39 07/30/2022 14:15:35 Contusion of eye 880657460 S05.10XA Questioned fall from standing but mechanism unclear. Patient reportedly went to ER earlier in the day but left once waiting room was full. Advised that we were unable to rule out serious intracrani al or intraocula r process with the product lister and that we advised ED evaluation . During [facility] visit, PCP called the patient on her cell phone. Three-way call with the PCP, he was unaware of the questioned head strike. He will follow up with her later tonight and/or tomorrow. [id number] Mary Xiong MD Main - [address] [phone] 05/19/2022 20:33:36 07/16/2022 12:42:08 Chronic pain [id number] G89.29 [id number] Mary Ellen Tinsley MD [facility] - [address] [phone] 10/21/2022 20:48:19 10/23/2022 13:46:51 Pain in lower limb 08142493 M79.604 +/- Viv's only sign of possible dvt- Not likely given sudden onset and patient is already anticoagul ated on eliquis, but would benefit from US to r/o DVTMost likely muscular pain/ fibromyalg ia flareadvis ed elevate/ ice ( wrapped in a towel) q 3-4H for 15 min w/a to affected area/ Given Tylenol for pain as Ketorolac contraindi cated on patient on anticoagul ant- advised given stated weight may have Tylenol 500 mg 1-2 tablets 3 x per day ( max)Advise d if develops hi fever/ CP/ SOB to call 911- otherw call pcp in the am - she verbalized understand ing [id number] Mary Xiong MD [facility] - [facility] [address] [place] [phone] 01/12/2023 20:00:04 01/14/2023 09:42:55 Flank pain 031987311 R10.9 [id number] Phil Larose MD [facility] - [facility] [address] [place] [phone] 09/15/2023 14:29:26 09/15/2023 22:36:05 Abnormal uterine bleeding [id number] 9100 N93.9 This 48-year-ol d female had an IUD removed several weeks ago and since then she has had gradually worsening vaginal bleeding. She is mildly anemic today with stable vital signs. I recommende d that she contact her PCP to arrange for a D & C. She should also take an OTC iron supplement . The patient agreed with this plan. [id number] Mary Ellen Tinsley MD [facility] - [facility] [address] [place] [phone] 03/24/2024 11:24:00 03/24/2024 22:17:23 Malaise and fatigue 602121635 R53.81 Nothing concerning on physical exam/had negative chest x-ray, negative rapid COVID-BMP only abnormalit ies is hypokalemi aPer medic requests rx go to [facility] in [place] [id number] Abby Gregory MD [facility] - [facility] [address] [place] [id number] 10/10/2024 09:36:53 10/10/2024 11:17:29 Muscle pain 60705241 M79.10 Essential hypertension 72149333 I10 Benign par oxysmal positional vertigo 345952693 H81.10 [id number] Ernestine Bolanos MD [facility] - [facility] [address] [place] [phone] 12/10/2024 12:26:41 12/13/2024 16:44:04 Malaise [id number] R53.81 Evaluation in the field was performed by my product lister colleague, as noted above, I provided real-time direction and supervisio n for this visit. 49yo malaise, subjective fevers, and poor PO intake. ON product lister eval VS with temp > assay (recorded as 107F) rest wnl. Exam unremarkab le. POC testing negative COVID, flu. BMP with K 2.3. Given sig hypokalemi a recommend ED eval. Expect called. PCP: please f/up after ED/hosptia lization Health Concerns Section Related Observation LastModified by Organization Detai ls LastModified Time None Recorded Concern Status LastModified by Organization Details LastModified Time None Recorded Advance Directives Directive None Recorded Payers Insurance Date Sequence Insurance Name Policy Number Policy River Covered Member ID River Member ID Guarantor Name 10/10/[address] [facility] - DOS PRIOR TO 2023 - DUAL ELIGIBLE (MEDICARE REPLACEMENT/ADV ANTAGE - HMO) Melinda Camacho [id number] Melinda Camacho 12/10/[address] [facility] - DOS ON OR AFTER 2023 - DUAL ELIGIBLE - RETIREMENT OPTIONS AND ONE CARE (MEDICARE REPLACEMENT/ADV ANTAGE - HMO) Melinda Camacho [id number] LillianaKalie Camacho Notes Date Note Type Note Provider Name and Address Organization Details Recorded Time 01/12/2023 text/html HPI: Member with c/o back pain X 2 days. Member does not recall doing anything to injure the area. Member with c/o pain that starts on her right side just under her breast and travels to her back. Member has been taking Tylenol with no relief. ...................... ...................... ...................... ...................... ...................... ...................... ......... CRC Nursing Assessment: Comments: no further information needed to process visit Mary Xiong MD [address] [facility], [place], [address], [employer] 01/12/2023 20:05:47 09/15/2023 text/html HPI: Melinda was calling due to ongoing chronic heavy vaginal bleeding. Pt states had TURNER for 3 days and BP 192/100. Pt denes CP, dizziness or SOB. No facial dropping or weakness. No slurred speech at moment of call. HX stroke 2020 on Xarelto and amlodipine 5mg. ...................... ...................... ...................... ...................... ...................... ...................... ......... CRC Nursing Assessment: Comments: Member c/o increased bleeding , but had IUD placed in jun and removed it sep 08 . Member had HTN and took her meds this am. Member has had increased pain with the bleeding. Member has had called her obgyn but is concerned with her BP . Member has not had any neuro changes Phil Larose MD [address] [facility] [facility], [place], [address], [facility] 09/15/2023 14:33:47 03/24/2024 text/html HPI: KELSIE contacts [facility] directly to report three days of not eating, increased sweating, and moderate weakness. KELSIE is a 49 y/o female with a PMH of, but not limited to: HTN, hx stroke (aspirin), hx PE (anticoags), GERD, Crohn? s disease, bipolar disorder, PTSD, dissociative disorder, fibromyalgia, migraines, and KAYODE. MBR states she ? h asn? t felt well for three days.? She endorses inability to eat, moderate weakness, increased sweating, body aches, and dry mouth. MBR denies CP, SOB, pain, difficulty urinating or moving bowels, N/V, dizziness, or bleeding. MBR is ill-sounding and weak to this [facility] RN. She is AOx4, with slow, weak speech. No coughing, wheezing, or stridor could be appreciated. KELSIE states that she was seen by her PCP yesterday, had blood work, and ? s ounded congested to the doctor so he sent me for an Xray. The doctor called me this morning and told me everything was ok with the Xray.? KELSIE is feeling worse today and would prefer an [facility] in-home visit instead of going to the ED. KELSIE is assured that a referral will be placed on her behalf. After confirming [facility]? s address and phone number on file, KELSIE is advised to call 911 for any new or worsening symptoms. She is also advised that, based upon medic? s findings, she may be triaged to the ED. KELSIE understands and agrees with this editorial writer? s recommendations. KELSIE can be reached at [phone]. ...................... ...................... ...................... ...................... ...................... ...................... ......... [facility] Nurse Triage Notes (Chelsy Hernadez): Comments: [facility] RN DID NOT NEED FURTHER INFO [facility] POC Test Results from [facility] Rapid COVID antigen (1) [11:20] COVID: - iSTAT Chem8+ (1) [11:20] Na: 141 mEq/L K: 3.1 mEq/L Cl: 103 mEq/L iCa: 1.23 mmol/L TCO2: 27 mmol/L Glu: 95 mg/dL BUN: 11 mg/dL Crea: 1 mg/dL Hct: 37 % Hb: 12.6 g/dL A Crystal Finisher POC Test Results from [facility] - [facility] EKG (1) [11:39] EKG test performed. Attachments uploaded as part of this test result can be found under Documents section. ...................... ...................... ...................... ...................... ...................... ...................... ......... Crystal Finisher Note From [facility]: Dispatched to the call address for the female feeling weak and tired. Pt states today is day 3 of just feeling tired. She states she has no other symptoms, denying CP, SOP, fevers, congestion or other cold/flu like symptoms. Pt states she was seen by her PCP yesterday where they did blood work and a chest X-ray with no findings. Pt states she has had a diminished appetite but is able to maintain PO hydration. Pt was found laying supine in bed, CAOx4, airway open and patent, breathing non labored, able to speak in full sentences, -JVD, -HEENT, skin PWD with good turgor, abd soft non tender/distended, pupils PERRL, mucous membranes pink and moist, +CMSx4, -edema, lung sounds clear and equal bilaterally. Rapid Covid (-), POC BMP showed K of 3.1. C consulted. EKG. Pt given 40meq of K. Script called into preferred pharmacy. Red flags discussed. ALL times are approx. ...................... ...................... ...................... ...................... ...................... ...................... ......... Disposition: Fulfilled Mary Ellen Tinsley MD [address], [place], [address], [employer] 03/24/2024 12:44:32 10/10/2024 text/html HPI: Member called CRU, c/o dizziness, nausea, bilat lower extremity pain, fatigue x 3days. B/P 140/101, hr. 82. Member denies chest pain, sob, weakness in face or extremities. Member states she is afraid to get up and walk, d/t dizziness. Member has take meclizine, and amlodipine and torsamide. PMH includes HTN, h/o stroke, hx PE, GERD, crohn's disease, bipolar, ptsd, dissociative disorder, chronic pain. Member speech is clear and appropriate. She is able to speak in full sentences without pauses or breaks. ...................... ...................... ...................... ...................... ...................... ...................... ......... [facility] Nurse Triage Notes (Yolanda Larry): Chief Complaints: Dizziness, Leg pain/swelling, Nausea, Fatigue PMH: Coronary Artery Disease, Hypertension, Severe Persistent Mental Illness (SPMI), Stroke, Inflammatory Bowel Disease (Crohn's Disease, Ulcerative Colitis), Gastroesophageal Reflux Disease (GERD), Bipolar Disorder, Post-Traumatic Stress Disorder (PTSD), Chronic Pain Comments: HPI reviewed- NE ...................... ...................... ...................... ...................... ...................... ...................... ......... Crystal Finisher Note From Salomon Oconnor: This 49-year-old female with a history including but not limited to CAD, HTN, depression, bipolar, stroke, Crohn's disease, GERD, PTSD, vertigo, chronic pain requested a visit today for multiple somatic complaints. She tells me that prior to taking her amlodipine this morning, she checked her blood pressure and it was in the 140s to 150s over low 100s. She also tells me that she felt dizzy this morning, which is not uncommon for her. She states that she took her meclizine and her dizziness resolved after approximately 45 minutes. She also complains of pain in both legs, upper and lower which is consistent with previous fibromyalgia flareups. She states she usually has flareups when the temperatures started to drop as they are currently. She is requesting a ? l ow dose? Toradol shot because that is helped her in the past. Patient takes Xarelto. Patient denies any current dizziness, lightheadedness, chest pain, shortness of breath, fevers, nausea, vomiting, diarrhea.Patient presents awake and alert, in no acute distress. Her vital signs are stable and she is afebrile. Nonfocal neurological exam. Normal gait. Lungs are clear throughout auscultation. Abdomen is soft, nontender, nondistended. No lower extremity edema, erythema, contusions, warmth.I recommend the patient follows up with her primary care physician today to obtain a refill on her tramadol. I also provided education on why NSAIDs are not appropriate for someone outpatient who is on blood thinners. I recommend she continues her daily meds as prescribed. I instructed her to present to the emergency department for any new or worsening severe symptoms such as severe headache, chest pain, shortness of breath, high fever, altered mental status. The patient was given the opportunity to ask questions and is agreeable to this plan. ...................... ...................... ...................... ...................... ...................... ...................... ......... [facility] Consulted: Abby Gregory ...................... ...................... ...................... ...................... ...................... ...................... ......... Disposition: Fulfilled Abby Gregory MD [address] [place] [address],[address], [place], [address], [employer] 10/10/2024 10:51:10 12/10/2024 text/html HPI: Member calling in due to overall feeling unwell. Member with nausea, fatigue, dizziness, and some shortness of breath. Member was also constipated but has taken some Dulcolax and had a small BM. ...................... ...................... ...................... ...................... ...................... ...................... ......... [facility] Nurse Triage Notes (Mendoza Gray RN): Chief Complaints: Dizziness, Nausea, Weakness PMH: Coronary Artery Disease, Hypertension, Severe Persistent Mental Illness (SPMI), Stroke, Inflammatory Bowel Disease (Crohn's Disease, Ulcerative Colitis), Gastroesophageal Reflux Disease (GERD), Bipolar Disorder, Post-Traumatic Stress Disorder (PTSD), Chronic Pain PMH Reviewed at 12/10/2024 Allergies Reviewed at 12/10/2024 Comments: Reviewed HPI Crystal Finisher Organization Information for [facility] [employer] Legal Name: [facility] Transportation Address: [address] [place] [address], [place] [address], [employer]r: Zane Ramirez MD CLIA No.: [id number] Crystal [facility]isher POC Test Results from [facility] EKG (12:24:20) EKG test performed. Attachments uploaded as part of this test result can be found under Documents section. Rapid COVID antigen (12:48:52) COVID: - Attachments uploaded as part of this test result can be found under Documents section. Rapid influenza antigen (12:48:54) Flu: - Attachments uploaded as part of this test result can be found under Documents section. epoc (12:57:24) pH: 7.457 pH units pCO2: 32.1 mmHg pO2: 34.0 mmHg Na: 139 mmol/L K: 2.3 mmol/L iCa: 1.05 mmol/L Cl: 105 mmol/L TCO2: 21.7 mEq/L Hct: 35 % Hb: 12 g/dL Glu: 97 mg/dL Lac: 1.19 mmol/L Cr: 1.10 mg/dL BUN: 15 mg/dL A Attachments uploaded as part of this test result can be found under Documents section. ...................... ...................... ...................... ...................... ...................... ...................... ......... Crystal Finisher Note From Lukasz Llanos: Pt chief complaint today of general malaise as well as weakness, fever/ chills and loss of appetite going on for x7 days prior to her [facility] visit today. Pt also states that she has been seen at her local area hospital in of this week for the same situation as discussed above. Pt states that she had an undiagnostic ekg taken and inconclusive bloodwork drawn. Pt state that she has taken anything to assist with the situation such as any oct medications or prescribed. Pt states that she has not been near anyone she knows is sick. Pt today is looking for a general assessment as well as possible treatment. Pt allergies are noted. Pt denies any cp, sob, vomiting, dizziness or blurred vision. Nonneural focal exam, pt possibly febrile (104 per [facility] thermometer/ 98 per pt thermometer. Vitals are fully WNL. Lungs are clear bilaterally, benign abdominal assessment. No lower extremity edema noted. Pt is very tired during her [facility] interaction (unable to keep eyes open). Pt is hot to touch. 12 lead ecg shows the pt in a sinus rhythm with no diagnostic markers for stemi activity, POC blood work acquired and shows the pt to be at a potassium of 2.3, negative covid/flu test taken. [facility] Ernestine Barlowtad consulted. Pt informs that due to her hypokalemia as well as dehydration her best course of action will be the hospital.pt agreed and [facility] contacts [facility]. [facility] provider remains on scene to facilitate 911 transport and assist with passing over of report to Rubens s crew. Pt transported via priority 1 to [facility]. ...................... ...................... ...................... ...................... ...................... ...................... ......... [facility] Consulted: Ernestine Bolanos ...................... ...................... ...................... ...................... ...................... ...................... ......... Disposition: Fulfilled Ernestine Bolanos MD [address], [place], [address], [facility] 12/10/2024 16:46:37 OBGyn Episode No OBEpisode recorded.
--- OUTSIDE RECORDS SUMMARY | 2025-03-21 10:31 | XMS_ITS | Clinical Summary ---
Author Organization [facility] [employer] Address [address] [facility] [place] [address] Phone Care Team Providers Care Event Technician Name Role Phone Martin Navarro MD Primary Care Provider Allergies Active Allergy Reactions Criticality Noted Date Comments Apixaban 02/25/2021 Rash Prednisone Itching 01/06/2025 Medications rivaroxaban (XARELTO) 20 mg tablet Take 20 Tablets by mouth daily. Active DULoxetine (CYMBALTA) [address] capsule Take 30 mg by mouth 2 Times Daily. Active cariprazine (Vraylar) 4.5 mg capsule Take 4.5 mg by mouth daily. Active omeprazole (PriLOSEC) [address] capsule Take 40 mg by mouth daily. Active cyanocobalamin (VITAMIN B-12) 1,000 mcg tablet Take 1,000 mcg by mouth daily. Active ferrous sulfate 325 mg (65 mg elemental iron) tablet Take 325 mg by mouth daily. Active ondansetron (ZOFRAN) 4 mg tablet Take 4 mg by mouth every 8 hours as needed. Active lamoTRIgine (LaMICtal) 200 mg tablet Take 1 tablet by mouth at bedtime. Active lidocaine (XYLOCAINE) 5 % ointment Apply topically 3 times daily. Active tiZANidine (ZANAFLEX) 4 mg tablet Take 1 Tablet by mouth 3 times daily. Active topiramate (TOPAMAX) 50 mg tablet Take 50 mg by mouth daily. Active potassium chloride (KLOR-CON M10) 10 mEq CR tablet Take 1 tablet (10 mEq total) by mouth 1 (one) time each day. Tablet may be swallowed whole (do not crush/chew/suc k on) OR broken in half and each half swallowed separately OR dissolved (whole tablet) in ~4 ounces of water (allow ~2 minutes to dissolve, stir well and administer immediately). 30 each 2 01/10/20 25 Active amLODIPine (NORVASC) 10 mg tablet TAKE 1 TABLET BY MOUTH EVERY DAY 90 tablet 1 02/23/20 25 Active amLODIPine (NORVASC) 10 mg tablet TAKE 1 TABLET BY MOUTH EVERY DAY 03/14/20 24 025 Discontinued Active Problems Problem Noted Date Diagnosed Date Prolonged QT interval 12/09/2022 Overview (12/07/2024): Last Assessment & Plan: Her QT interval is a little prolonged on her EKG today. She has had this in the past. It is similar in duration. She is on several psych medications that can prolong this. Fortunately she is not having any dizziness or syncope. She is again having palpitations but these sound like are simple PACs. She again will let us know if these worsen. I believe she is had recent blood work and I will track these down to make sure she is had a magnesium. If this does not improve then we we will need to reconsider some of her psych meds and determine what an appropriate QT interval could potentially be for her. It is only slightly prolonged at 460 at this time but is something we will need to watch. Chest pain 01/02/2022 Overview (12/07/2024): Last Assessment & Plan: Patient continues to report atypical chest discomfort. Discomfort is reproducible to palpation. She had a nuclear stress test completed 01/2023 which was normal showing no evidence of ischemia or infarction. Dyspnea 01/02/2022 Overview (12/07/2024): Last Assessment & Plan: She does endorse dyspnea today. Her lung exam is normal. Her oxygen saturations are normal and she continues to take her Xarelto. She has no evidence of heart failure on exam. We did discuss that if this worsens to go to the emergency room for further evaluation with her history of pulmonary embolisms. Unlikely that this is occurring again as she has not had any interruption her Xarelto. Obesity (BMI 30.0-34.9) 12/30/2021 Obstructive sleep apnea syndrome 12/30/2021 Overview (12/07/2024): Last Assessment & Plan: Patient has history of untreated sleep apnea. She was urged to follow-up with sleep medicine for treatment of her sleep apnea since this could be contributing to her blood pressure as well as palpitation symptoms. Stroke ([facility] V24, [facility] V28) 12/30/2021 Palpitations 02/26/2021 Overview (12/07/2024): Last Assessment & Plan: Patient continues to report palpitations. Recent monitoring and evaluation advisor patient's last monitoring and evaluation advisor results were benign. Echocardiogram is normal with mild tricuspid regurgitation. We will continue to monitor her symptoms. No change to baseline at this time Benign hypertension 2021 Overview (12/07/2024): Last Assessment & Plan: Patient's blood pressure today 144/86. I will increase her amlodipine to 10 mg once a day. I have warned her about the potential for increased leg edema. She is following up with her primary care provider next week who can recheck her blood pressure. Cryptogenic stroke ([facility] V24, [facility] V28) Overview (12/07/2024): Last Assessment & Plan: Patient continues on Xarelto for anticoagulation for history of cryptogenic stroke. Resolved Problems Problem Noted Date Diagnosed Date Resolved Date Dizziness 01/02/2022 01/06/2025 Overview (12/07/2024): Last Assessment & Plan: She is having 2 different types of dizziness. One sounds like it is due to low blood pressure. The other one sounds like it is due to her medications. We did discuss what to do when her blood pressure is low. Of asked her to increase her salt intake when her blood pressure is less than 100. This will help to mitigate some of her dizziness. Syncope 06/13/2021 01/06/2025 Overview (12/07/2024): Last Assessment & Plan: She has not had any further episodes of syncope since she was last here. We did discuss potential causes. She will continue to stay hydrated, get up slowly and use compression stockings when needed. She will check her blood pressures before she takes her amlodipine in the morning to make sure that she is not making her blood pressure is lower. If she has any further episodes she will let us know. Encounters Date Type Department Care Team Description 01/20/2025 8:30 AM EDT Ancillary Procedure [facility] [address] [place] [id number] Chest pain, unspecified type; Benign hypertension; Palpitations; Shortness of breath 01/09/2025 Telephone [facility] [address] [place] [address] Dana Lopez NP 01/06/2025 1:40 PM EST Office Visit [facility] [address] [place] [address] Dana Lopez, MARINO Chest pain, unspecified type (Primary Dx); Benign hypertension; Palpitations; Shortness of breath from Last 3 Months Immunizations Name Administration Dates Next Due Hepatitis B (Djtpunh-E-Tjcjy , Recombivax HB-Adult) 19yo and older 03/22/2013,11/22/2012,06/14/2012 Influenza Quadrivalent, 0.5m l, preservative free (Fluarix; FluLaval; Fluzone) ages 6mo and older (Afluria) 3yo and older 09/22/2021 Influenza trivalent, 0.5mL, preservative free (Fluarix; FluLaval; Fluzone) ages 6mo and older (Afluria) 3 years and older 08/25/2024,08/18/2023,10/28/2022,08/23 Influenza trivalent, with pr eservative (Fluzone; Afluria) 6mo and older 01/24/2021,09/09/2018,08/20/2017,08/09,11/19/2015,11/22/2012,09/17/2011 ,11/07/2008,10/12/2007 Influenza, live, intranasal, trivalent (FluMist) 2yo to less than 50yo 10/24/2009 Pfizer (ages 12 & older) AKIRA S-CoV-2 COVID-19, mRNA, LNP-S, concha-sucrose, preservative free 08/18/2023,03/14/2022 Pneumococcal conjugate 13 va lent (Prevnar 13, PCV13) 2mo and older 08/23/2019 Pneumococcal polysaccharide 23 valent (Pneumovax 23) 2yo and older 12/05/2015 SARS-COV-2 (COVID-19) Vaccin e, Unspecified 10/28/2022 Td, Unspecified 04/22/2007 Tdap Tetanus diptheria acell ular pertussis (Boostrix; Adacel) 7yo and older 12/18/2023,11/07/2008 Surgical History Surgery Date Site/Laterality Comments COLONOSCOPY 06/09/2017 PROCEDURE: HISTORICAL COLONOSCOPY OTHER SURGICAL HISTORY 04/09/2017 PROCEDURE: UPPER GI ENDOSCOPY, REMOVE LESION COLONOSCOPY 03/14/2017 PROCEDURE: HISTORICAL COLONOSCOPY CHOLECYSTECTOMY 11/06/2015 PROCEDURE: HISTORICAL CHOLECYSTECTOMY; COMMENT: Laparoscopic cholecystectomy TUBAL LIGATION 1993 Bilateral PROCEDURE: HISTORICAL TUBAL LIGATION SECTION 1992 PROCEDURE: HISTORICAL DELIVERY SECTION 1990 PROCEDURE: HISTORICAL DELIVERY Medical History Medical History Date Comments Anxiety DX:Anxiety Bipolar disorder ([facility] V2 4, [facility] V28) DX:Bipolar disorder ([facility]) Change in bowel habits DX:Change in bowel habits Chronic constipation DX:Chronic constipation Chronic depression DX:Chronic de pression Chronic pelvic pain in female DX :Chronic pelvic pain in female Costochondritis DX:Costochondrit is Diffuse myofascial pain syndrome DX:Diffuse myofascial pain syndrome Fibromyalgia DX:Fibromyalgia H. pylori infection DX:H. pylori infection Hidradenitis suppurativa DX:Hidr adenitis suppurativa History of abnormal cervical Pap smear DX:History of abnormal cervical Pap smear; COMMENT: All paps normal since. 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 Non-specific colitis DX:Non-spec ific colitis Obesity (BMI 30.0-34.9) DX:Obesi ty (BMI 30.0-34.9) Obstructive sleep apnea syndrome DX:Obstructive sleep apnea syndrome Polypharmacy DX:Polypharmacy Stroke ([facility] V24, [facility] V28) DX:Stroke ([facility]) Syncope DX:Syncope SIADH (syndrome of inappropr iate ADH production) ([facility] V24) DX:SIADH (syndrome of inappr opriate ADH production) ([facility]) Vitamin D deficiency DX:Vitamin D deficiency Family History Medical History Relation Name Comments Asthma Brother Colon cancer Brother Diabetes Father Hypertension Father Depression Mother Diabetes Mother Hypertension Mother Stroke Other 1 Cousin Stroke Other 2 Cousin Thyroid disease Sister Relation Name Status Comments Brother Father Mother Other 1 Cousin Other 2 Cousin Sister Social History Tobacco Use Types Packs/Day Years Used Date Smoking Tobacco: Never Smokeless Tobacco: Never Alcohol Use Standard Drinks/Week Comments Never 0 (1 standard drink = 0.6 oz pur e alcohol) Comments Unknown Sex and Gender Information Value Date Recorded Sex Assigned at Not on file Legal Sex Female 8:58 AM EST Gender Identity Not on file Sexual Orientation Not on file Obstetrics History Last Filed Vital Signs Vital Sign Reading Time Taken Comments Blood Pressure 126/83 01/20/2025 8:47 AM EDT Pulse 83 01/06/2025 1:32 PM EST Temperature - - Respiratory Rate - - Oxygen Saturation 99% 01/06/2025 1:32 PM EST Inhaled Oxygen Concentration - - Weight 75 kg (165 lb 6.4 oz) 01/20/2025 8:25 AM EDT Height 149.9 cm (4' 11 ) 01/20/2025 8:25 AM EDT Body Mass Index 33.41 01/20/2025 8:25 AM EDT Plan of Treatment Upcoming Encounters Date Type Department Care Team (Late st Contact Info) Description 05/08/2025 8:00 AM EDT Ancillary Procedure [facility] [address] [facility] [address] [place] [address] Health Maintenance Due Date Last Done Comments Breast Cancer Screening 1974 Cervical Cancer Screening: Pap Smear 1995 Pneumococcal Vaccine: 50+ Years (3 of 3 - PPSV23, PCV20 or PCV21) 12/05/2020 08/23/2019, 12/05/2015 Pneumococcal Vaccine: Pediatrics (0 to 5 Years) and At-Risk Patients (6 to 64 Years) (3 of 3 - PPSV23, PCV20 or PCV21) 12/05/2020 08/23/2019, 12/05/2015 Cholesterol Screening (Lipid Panel) 10/18/2022 Colorectal Cancer Screening: Colonoscopy 10/18/2022 Depression Screening 10/18/2022 HIV Screening 10/18/2022 Hepatitis C Screening 10/18/2022 Medicare Annual Wellness Visit 10/18/2022 Social Influencers of Health Screening 10/18/2022 Zoster Vaccines (2 of 2) 12/12/2024 10/17/2024 COVID-19 Vaccine (8 - Pfizer risk season) 2025 12/08/2024, 08/18/2023, 10/28/2022, Additional history exists Hypertension/CHF/CAD Annual BMP Blood Test 01/19/2026 01/19/2025, 01/06/2025, 04/21/2024, Additional history exists DTaP,Tdap,and Td Vaccines (4 - Td or Tdap) 12/18/2033 12/18/2023, 11/07/2008, 04/22/2007 Hepatitis B Vaccines Completed 03/22/2013, 11/22/2012, 06/14/2012 Influenza Vaccine Completed 08/25/2024, , 10/28/2022, Additional history exists HIB Vaccines Aged Out No longer eligi ble based on patient's age to complete this topic HPV Vaccines Aged Out No longer eligi ble based on patient's age to complete this topic Hepatitis A Vaccines Aged Out No long er eligible based on patient's age to complete this topic IPV Vaccines Aged Out No longer eligi ble based on patient's age to complete this topic MMR Vaccines Aged Out No longer eligi ble based on patient's age to complete this topic Meningococcal ACWY Vaccine Aged Out N o longer eligible based on patient's age to complete this topic Meningococcal B Vaccine Aged Out No l onger eligible based on patient's age to complete this topic RSV Immunization Patients Under 20 months Aged Out No longer eligible based on patient's age to complete this topic Varicella Vaccines Aged Out No longer eligible based on patient's age to complete this topic Procedures Procedure Name Priority Date/Time Associated Diagnosis Comments NM EXERCISE STRESS TEST (STRESS ONLY) W/ MYOCARDIAL PERFUSION Routine 01/20/2025 11:05 AM EDT Chest pain, unspecified type Benign hypertension Palpitations Shortness of breath BASIC METABOLIC PANEL Routine 01/19/2025 10:14 AM EDT Hypokalemia ECG 12-LEAD Routine 01/06/2025 2:53 PM EST Chest pain, unspecified type N-TERMINAL PROBNP Routine 01/06/2025 2:2 7 PM EST Shortness of breath BASIC METABOLIC PANEL Routine 01/06/2025 2:27 PM EST Chest pain, unspecified type Benign hypertension Shortness of breath from Last 3 Months Results * NM EXERCISE STRESS TEST (STRESS ONLY) W/ MYOCARDIAL PERFUSION (01/20/2025 11:05 AM EDT) Exercise/inject ion duration (min) 6 CV PACS STRESS Exercise/inject ion duration (sec) 46 CV PACS STRESS Peak SBP 158 mmHg CV PACS STRESS Peak DBP 90 mmHg CV PACS STRESS Peak HR 118 bpm CV PACS STRESS Baseline HR 90 bpm CV PACS STRESS Baseline SBP 120 mmHg CV PACS STRESS Baseline DBP 80 mmHg CV PACS STRESS Estimated workload 9.3 METS CV PACS STRESS Percent HR 69 % CV PACS STRESS Rate Pressure Product 18,644.0 mmHg*bpm CV PACS STRESS BSA 1.77 m2 CV PACS STRESS Target HR 145 bpm CV PACS STRESS TID 1.14 CV PACS STRESS Nuc Stress EF 70 % CV PAC S STRESS Nuc Rest EF 69 % CV PACS STRESS Max HR Percent 69 % CV PA CS STRESS ST Depression (mm) 0 mm CV PACS STRESS O2 sat rest 99 % CV PACS STRESS Anatomical Region Laterality Modality Nuclear Medicine 01/20/2025 9:09 AM EDT 01/20/2025 10:13 AM EDT Narrative 01/20/2025 4:14 PM EDT ?Stress ECG was non-diagnostic ?Exercise stress test was performed. Exercise capacity was below average. Normal blood pressure response. ?Normal myocardial perfusion study. ?LV perfusion is normal.Attenuation correction removes the breast attenuation noted on images ?Normal left ventricular function post-stress. Stress ejection fraction is 70%. ?Submaximal nature of the test limits the underlying sensativity Stress Findings A Judson protocol stress test was performed. Overall, the patient's exercise capacity was above average. The patient reached stage 3. Total stress time was 6 min and 46 sec. The test was stopped because the patient experienced fatigue and shortness of breath. The patient requested the test to be stopped. The patient's hemodynamic response was suboptimal due to requesting to stop prior to reaching target heart rate. Blood pressure demonstrated a normal response. Heart rate demonstrated a blunted response. Onset of symptoms occurred at Stage 2 of the protocol. The patient reported shortness of breath and fatigue during the stress test. ECG 49-year-old female with past medical history of hypertension, obstructive sleep apnea, pulmonary embolism, cryptogenic stroke, palpitations and chest pain who presents today for AN exercise nuclear stress test to rule out ischemia. Her last dose of amlodipine 10 mg was this morning at approximately 7 AM. The ECG shows sinus rhythm 80 bpm. There were no arrhythmias during stress. There is no ST segment changes during stress. Patient did develop T wave inversion in V4 3 minutes into recovery. There were no arrhythmias during recovery. The result of the stress ECG was non-diagnostic for ischemia due to reduced sensitivity due to failure to acheive target heart rate. Nuclear Study Quality Study technique: MPI, SPECT, multi, rest and stress, 1 day. Overall image quality is excellent. CT attenuation correction was utilized. There are no artifacts present. There was no increased lung uptake of the radiopharmaceutical. No radiopharmaceutical dose was extravasated. The time from injection to rest imaging is 30 mins. The time from injection to stress imaging is 40 mins. Perfusion Defect Conclusion There is no evidence of transient ischemic dilation (TID). Stress Function Comments Left ventricular systolic function post-stress is normal. Stress ejection fraction is 70%. Rest Function Comments Left ventricular function at rest was normal. Resting ejection fraction was 69%. Stress Combined Conclusion Normal myocardial perfusion study. Overall low cardiovascular risk..Though sensitivity of the test is limited due to reduced functional capacity and inability to reach target heart rate CT Findings No coronary calcification identified Perfusion Comments LV perfusion is normal.Breast attenuation was relieved with attenuation correction Dana Lopez NP CV STRESS PROCEDURES Final R esult * (ABNORMAL) Basic metabolic panel (01/19/2025 10:14 AM EDT) Only the most recent of2 resultswithin the time period is included. Glucose 90 70 - 99 mg/dL [facility] Blood Urea Nitrogen (BUN) 20 6 - 24 mg/dL [facility] Creatinine 1.01(H) 0.57 - 1.00 mg/dL [facility] 1 eGFR 68 >59 mL/min/1.7 3 [facility] BUN/Creatinine Ratio 20 9 - 23 [facility] Sodium 142 134 - 144 mmol/L [facility] Potassium 4.2 3.5 - 5.2 mmol/L [facility] 1 Chloride 108(H) 96 - 106 mmol/L [facility] 1 Carbon Dioxide 18(L) 20 - 29 mmol/L [facility] Calcium 9.2 8.7 - 10.2 mg/dL [facility] 1 Blood Venous blood specimen / Unknown 01/19/2025 10:14 AM EDT 01/19/2025 Narrative [facility] - 01/19/2025 11:06 PM EDT Performed at: ??01 - [facility] [address] ??[id number] Workers Compensation Claims Examiner: Cristal Downs MD, Phone: ??[phone] Dana Lopez NP LAB BLOOD ORDERABLES Final R esult [facility] * ECG 12 lead (01/06/2025 2:53 PM EST) Ventricular Rate ECG 83 BPM GEMUSE Atrial Rate 83 BPM GEMUSE P-R Interval 166 ms GEMUSE QRS Duration 80 ms GEMUSE Q-T Interval 422 ms GEMUSE QTc 495 ms GEMUSE P Wave [place] 57 degrees GEMUSE R [place] 54 degrees GEMUSE T [place] 54 degrees GEMUSE ECG Interpretation Normal sinus rhythm Possible Left atrial enlargement Prolonged QT Abnormal ECG Confirmed by Gladys MOORE JAMES ([id number]) on 01/06/2025 4:30:08 PM GEMUSE 01/06/2025 1:41 PM EST 01/06/2025 4:30 PM EST us Dana Lopez GELATIN DYNAMITE PACKING OPERATOR ECG ORDERABLES Edited Resul t - Final KENJI * N-Terminal Probnp (01/06/2025 2:27 PM EST) NT-proBNP 80 0 - 249 pg/mL [facility] Comment: The following cut-points have been suggested for the use of proBNP for the diagnostic evaluation of heart failure (HF) in patients with acute dyspnea: Modality ? Age ? Optimal Cut ? (years) ?Point Diagnosis (rule in HF) ?<50 ?450 pg/mL ?50 - 75 ?900 pg/mL ?>75 ? 1800 pg/mL Exclusion (rule out HF) ??Age independent ? 300 pg/mL Blood Venous blood specimen / Unknown 01/06/2025 2:27 PM EST 01/06/2025 Narrative [facility] - 01/07/2025 8:07 AM EST Performed at: ??01 - [facility] [address] ??[id number] Workers Compensation Claims Examiner: Cristal Downs MD, Phone: ??[phone] us Dana Lopez GELATIN DYNAMITE PACKING OPERATOR LAB BLOOD ORDERABLES Final R esult [facility] 1 from Last 3 Months Insurance MEDICARE Member Subscriber Plan / Payer (Ef fective 2016-Present) Name:Doug Melinda Relation to Subscriber:Self Name:Melinda Camacho Payer ID:[id number] Group ID:[id number] Type:Not on file Address: [place] [address] [place] [id number] Care Teams Event Technician Relationship Specialty Start Date End Date Martin Navarro MD [address] [place] [address] PCP - General Internal Medicine 12/30/21
--- NOTE | 2025-03-21 10:36 | ECG_ITS ---
Test Reason : dizziness Blood Pressure : */* mmHG Vent. Rate : 81 BPM Atrial Rate : 81 BPM P-R Int : 148 ms QRS Dur : 82 ms QT Int : 416 ms P-R-T Axes : 46 28 39 degrees QTcB Int : 483 ms Normal sinus rhythm Prolonged QT Abnormal ECG When compared with ECG of 01-Dec-2024 12:43, T wave inversion no longer evident in Anterolateral leads Referred By: Zully Navarrete Electronically Signed By: YISSEL TRONCOSO MD
--- NOTE | 2025-03-21 10:36 | ED.DIZZY ---
HPI - Dizziness General Chief Complaint: Dizziness Stated Complaint: DIZZY, WEAKNESS, BALANCE CHANGES X 2 DAYS Time Seen by Provider: 03/21/25 10:35 Source: patient and EMS Mode of arrival: EMS Limitations: no limitations History of Present Illness ED Provider: Isaura Navarrete PA-C HPI Narrative: 50 yo female with history of Crohn's disease, CVA, DVT on Xarelto, who presents to the from the store via EMS for evaluation of dizziness. She recently was sick with a GI bug and was vomiting. The last time she vomited was last night. She felt better this morning so decided to go to the store. While at the store she developed dizziness and lightheadedness. She has had generalized weakness the last couple of days with her recent illness. She denies any associated chest pain, SOB, vision changes, nausea, vomiting. No fevers, no chills, no diaphoresis. No focal weakness and no tingling. No known sick contacts. She arrives to the ER feeling somewhat better but still c/o some lightheadedness. MD elicited complaint: dizziness and lightheadedness Pertinent past history: stroke Onset (ago): hour(s) Timing: sudden onset Severity: moderate Description: lightheadedness Context: recent illness Exacerbating factors: nothing Relieving factors: nothing Associated symptoms: weakness Associated neuro symptoms: vision changes (brief, now resolved. unable to explain in detail the changes) Related Data Home Medications ?Medication ?Instructions ?Recorded ?Confirmed aspirin 81 mg tablet,delayed 81 mg PO DAILY 03/12/21 01/20/23 release lamotrigine 150 mg tablet 150 mg PO DAILY@0730 03/12/21 01/15/23 lamotrigine 200 mg tablet 200 mg PO BEDTIME 03/12/21 01/15/23 tizanidine 4 mg tablet 4 mg PO TID PRN Pain 03/12/21 01/15/23 rivaroxaban 20 mg tablet 20 mg PO BEDTIME 05/07/21 01/20/23 topiramate 50 mg tablet 50 mg PO DAILY 05/07/21 01/15/23 duloxetine 60 mg capsule,delayed 60 mg PO BID 06/20/22 01/15/23 release ubrogepant 100 mg tablet (Ubrelvy) 100 mg PO PRN Headache 06/20/22 acetaminophen 650 mg 0 mg PO 02/06/23 tablet,extended release meclizine 25 mg tablet 25 mg PO DAILY PRN 02/06/23 amlodipine 10 mg tablet 10 mg PO DAILY 10/19/23 cyanocobalamin (vitamin B-12) 2,500 mcg sublingual DAILY 10/19/23 2,500 mcg sublingual tablet (Vitamin B-12) ferrous sulfate 325 mg (65 mg mg PO 10/19/23 iron) tablet (FeroSul) folic acid 1 mg tablet 1 mg PO DAILY 10/19/23 ramelteon 8 mg tablet 8 mg PO DAILY 10/19/23 omeprazole 40 mg capsule,delayed 40 mg PO DAILY 03/14/24 release quetiapine 200 mg tablet 200 mg PO BEDTIME 03/14/24 torsemide 10 mg tablet 10 mg PO DAILY 03/14/24 clonazepam 1 mg tablet mg PO 09/12/24 Previous Rx's ?Medication ?Instructions ?Recorded loperamide 2 mg capsule 2 mg PO Q6H PRN loose stool #10 02/06/23 (Anti-Diarrheal (loperamide)) caps cyclobenzaprine 10 mg tablet 10 mg PO BEDTIME PRN muscle spasm 05/28/23 #10 tabs lidocaine 5 % topical patch 1 patch topical DAILY #15 ea 08/26/23 budesonide 3 mg 9 mg (3 x 3 mg) PO QAM 30 days #90 01/06/24 capsule,delayed,extended release ea lansoprazole 15 mg capsule,delayed 15 mg PO BID 90 days #180 caps 09/12/24 release sodium,potassium,mag sulfates 17.5 See Rx Instructions PO .COMPLEX 03/21/25 gram-3.13 gram-1.6 gram oral soln #354 mL (Suprep Bowel Prep Kit) Allergies Allergy/AdvReac Type Severity Reaction Status Date / Time apixaban [From Eliquis] Allergy Intermediate Itching, Verified 03/21/25 09:37 rash prednisone Allergy Mild Unknown Verified 03/21/25 09:37 Review of Systems Review of Systems: Yes all other systems are reviewed and are negative PMFSH Past Medical History Medical History Crohn disease Anxiety and depression History of CVA (cerebrovascular accident) On anticoagulant therapy Vitamin D deficiency KAYODE (obstructive sleep apnea) LOC (loss of consciousness) Migraine IBS (irritable bowel syndrome) Fibromyalgia Chronic depression Bipolar disorder HTN (hypertension) Anxiety H/O blood clots H/O stroke within last year Surgical History Hx of tubal ligation History of Hx of cholecystectomy Hx of endoscopy History of colonoscopy Family History Family History Father Hx of type 1 diabetes mellitus History of high cholesterol Mother Family history of high blood pressure Social History Social History Household Members: None Household Members Other:: mother Are you a primary health care technician to a significant other at home: No Do you presently have visiting nurse or other home services: No Alcohol intake: never Patient Tobacco Use Status: Never used Tobacco Smoked in Last 30 Days: No Use of substances other than those prescribed or required for medical reasons: No Advance Directives: Yes Advance Directives Information Provided: Yes Advance Directives on File: No Do you have a plan to hurt others: No Plan Current occupational status: disabled Physical Exam Vital Signs: Vital Signs: Last Vital Signs Temp 98.1 F 03/21/25 09:38 Pulse 82 03/21/25 13:04 Resp 16 03/21/25 09:38 BP 151/87 H 03/21/25 13:04 Pulse Ox 98 03/21/25 09:38 O2 Del Method Room Air 03/21/25 09:38 BMI result Body Mass Index 30.3 Appearance: Alert. Oriented X3. No acute distress. Head: normocephalic, atraumatic. Eyes: Pupils equal, round and reactive to light. EOMI, no nystagmus ENT: Pharynx normal. No tonsillar swelling or exudate. Neck: Normal inspection. Neck supple. CVS: Normal heart rate and rhythm. Pulses normal. Respiratory: No respiratory distress. Breath sounds normal. Abdomen: Soft and nontender. +BS x4 Skin: Skin warm and dry. Normal skin color. Normal skin turgor. No rashes. Extremities: No lower extremity edema. No joint swelling. Neuro/psych: Oriented X 3. No motor deficit. No sensory deficit.strength is equal and symmetrical throughout. CN II-XII intact. Normal speech and cognition. normal finger to nose and heel to donato bilaterally. NIH Stroke Scale Internal: Initial- Upon Arrival Level of Consciousness: Alert Level of Consciousness Questions: Answers both questions correctly Level of Consciousness Commands: Performs both tasks correctly Best Gaze: Normal Visual: No visual loss Facial Palsy: Normal Motor Arm (Right): No drift Motor Arm (Left): No drift Motor Leg (Right): No drift Motor Leg (Left): No drift Limb Ataxia: Absent Sensory: Normal Best Language: No aphasia Dysarthia: Normal Extinction and Inattention: No abnormality Score: 0 Medications Administered Discontinued Medications Generic Name Dose Route Start Last Admin Trade Name Johnq PRN Reason Stop Dose Admin Lactated Ringer's 1,000 mls @ 999 mls/hr 03/21/25 11:30 03/21/25 11:39 Lr IV 03/21/25 12:30 999 mls/hr .Q1H1M JANETT Administration Potassium Chloride 40 meq 03/21/25 11:26 03/21/25 11:39 Potassium Chloride Er 20 Meq Tab.Er.Prt PO 03/21/25 11:27 40 meq ONCE ONE Administration Medical Decision Making Medical Decision Making MDM Narrative: 50 yo female with history of Crohn's disease, CVA, DVT on Xarelto, who presents to the from the store via EMS for evaluation of dizziness While shopping at the store today. Recently had GI illness and vomiting episodes. She arrives to the ER hemodynamically stable and nonfocal. NIH is 0. She reports history of stroke [address] scan of the head was performed which showed no acute intracranial hemorrhage are no acute brain abnormality. There was old encephalomalacia and focal volume loss in the right temporoparietal occipital lobes. Lab workup showing mild hypokalemia of 3.0. Oral repletion given. Orthostatic vital signs are negative. She was given 1 L of LR and had improvement in her symptoms. She is feeling much better. She is tolerating p.o.. Her dizziness today was most likely precipitated by some mild dehydration with her recent GI losses. Symptoms have resolved and she would like to go home. Comfortable discharge home with supportive care. Return precautions were discussed. Differential Diagnosis Differential Diagnoses: The differential diagnosis associated with the presentation includes All stroke, vertigo, dehydration, TIANA, anemia, cardiac arrhythmia, Guillain-[place] syndrome Admission/Observation Consideration of admission/observation: Escalation of care including admission/observation considered Lab Data [facility] Lab Attestation statement: I reviewed the patient's lab results. hypokalemia, hyperchloremia with normal renal function 03/21/25 10:45 03/21/25 10:45 Labs: Lab Results 03/21/25 03/21/25 Range/Units 10:45 12:52 WBC 6.3 (4.8-10.8) X10*3/uL RBC 4.53 (4.20-5.50) X10*6/uL Hgb 13.6 (12.0-16.0) g/dl Hct 39.3 (37.0-47.0) % MCV 86.8 (80.0-98.0) fL MCH 30.0 (27.0-33.0) pg MCHC 34.6 (31.0-35.0) g/dl RDW 13.5 (11.0-16.0) % Plt Count 303 (160-400) X10*3/uL MPV 11.6 (9.4-12.3) fL Immature Gran % (Auto) 0.3 (0.0-0.4) % Neut % (Auto) 54.1 (45-73) % Lymph % (Auto) 38.0 (20-40) % [place] % (Auto) 5.5 (2-11) % Eos % (Auto) 1.3 (0-4) % Baso % (Auto) 0.8 (0-2) % Lymph # (Auto) 2.4 (1.2-4.9) X10*3/uL [place] # (Auto) 0.4 (0.1-1.2) X10*3/uL Eos # (Auto) 0.1 (0.0-0.4) X10*3/uL Baso # (Auto) 0.1 (0.0-0.2) X10*3/uL Abs Immat Gran (auto) 0.02 (0.00-0.03) X10*3/uL Absolute Neuts (auto) 3.4 (2.0-8.3) x10*3/uL Absolute Nucleated RBC 0.000 (0.0-0.012) X10*3/uL Nucleated RBC % (auto) 0.0 (0.0-0.2) /100WBC Sodium 143 (135-145) mmol/L Potassium 3.0 L (3.3-5.1) mmol/L Chloride 110 H (96-108) mmol/L Carbon Dioxide 23 (22-29) mmol/L Anion Gap 13 (12-20) BUN 9 (9-16) mg/dL Creatinine 0.98 (0.5-1.4) mg/dL Estim Creat Clear Calc 57.0 Estimated GFR 60 Random Glucose 96 (60-115) mg/dL Calcium 9.5 (8.4-10.2) mg/dL Magnesium 2.0 (1.6-2.6) mg/dL Total Bilirubin 0.3 (0.0-1.0) mg/dL Direct Bilirubin 0.1 (0.0-0.5) mg/dL AST 35 H (5-31) U/L ALT 22 (0-31) U/L Alkaline Phosphatase 121 H (39-117) U/L Troponin I High Sens < 2.7 (<3.5-17.0) ng/L Total Protein 7.6 (6.5-8.0) g/dL Albumin 4.3 (3.5-5.0) g/dL Urine Color Yellow Urine Appearance Cloudy Urine pH 6.5 (5.0-9.0) Ur Specific [place] 1.010 (1.005-1.025) Urine Protein Negative (Neg-Trace) mg/dL Urine Glucose (UA) Negative (Negative) mg/dL Urine Ketones Negative (Negative) mg/dL Urine Blood Negative (Negative) Urine Nitrite Positive H (Negative) Ur Leukocyte Esterase Trace H (Negative) Ethyl Alcohol < 10 mg/dL Independent Interpretation I performed an independent interpretation of an: EKG and CT Scan Interpretation: no acute bleed or edema EKG with normal sinus rhythm, ventricular rate 81 beats per minute, QTC 483, QTC 416, normal NE interval, no ST segment elevations or depressions Radiology Impression Discussion of test interpretation with radiology: I have reviewed the radiologist's reading. Radiologist Impression: CT/CT head/brain wo IV con IMPRESSION: No acute intracranial hemorrhage or acute brain abnormality by CT. Focal volume loss/encephalomalacia associated extra-axial CSF equivalent attenuation, right temporoparietal occipital. Independent Historian Clinical information obtained from an independent historian. History obtained from or confirmed by: EMS External Record Review External record reviewed: Outpatient record, Prior outpatient labs and Prior outpatient radiology Prescription Management I considered prescription management with: Other (potassium) Critical Care Time Critical Care Time Critical Care Time: No Discharge Plan Discharge Clinical Impression: Dizziness, Acute hypokalemia Patient Disposition: Home, Self-Care Instructions: Hypokalemia (ED), Dizziness (ED) Additional Instructions: Your CT scan today did not show any acute abnormalities. Your vital signs were stable. Her lab workup showed low potassium levels, this is likely due to your recent vomiting. You were given oral potassium and IV fluids. Your most likely dehydrated, continue to drink plenty of oral fluids today and rest. When changing positions, do so slowly. Follow-up with your doctor. If you develop new or worsening symptoms call 911 or come back to the ER for further evaluation. Prescriptions: No Action budesonide 3 mg capsule,delayed,extend.release 9 mg PO QAM 30 Days Qty: 90 2RF lansoprazole 15 mg capsule,delayed release(DR/EC) 15 mg PO BID 90 Days Qty: 180 1RF sodium,potassium,mag sulfates [Suprep Bowel Prep Kit] 17.5-3.13-1.6 gram recon soln See Rx Instructions PO .COMPLEX Qty: 354 0RF Rx Instructions: DILUTE; drink 1/2 at 6-8 pm and half at 11 PM- 1AM lidocaine 5 % adhesive patch,medicated 1 patch topical DAILY Qty: 15 0RF Rx Instructions: leave on most painful area for up to 12 hrs cyclobenzaprine 10 mg tablet 10 mg PO BEDTIME PRN (Reason: muscle spasm) Qty: 10 0RF rivaroxaban 20 mg tablet 20 mg PO BEDTIME topiramate 50 mg tablet 50 mg PO DAILY tizanidine 4 mg tablet 4 mg PO TID PRN (Reason: Pain) lamotrigine 200 mg tablet 200 mg PO BEDTIME lamotrigine 150 mg tablet 150 mg PO DAILY@0730 aspirin 81 mg tablet,delayed release (DR/EC) 81 mg PO DAILY Ubrelvy 100 mg tablet 100 mg PO PRN (Reason: Headache) duloxetine 60 mg capsule,delayed release(DR/EC) 60 mg PO BID meclizine 25 mg tablet 25 mg PO DAILY PRN acetaminophen 650 mg tablet extended release 0 mg PO loperamide [Anti-Diarrheal (loperamide)] 2 mg capsule 2 mg PO Q6H PRN (Reason: loose stool) Qty: 10 0RF folic acid 1 mg tablet 1 mg PO DAILY ramelteon 8 mg tablet 8 mg PO DAILY ferrous sulfate [FeroSul] 325 mg (65 mg iron) tablet PO cyanocobalamin (vitamin B-12) [Vitamin B-12] 2,500 mcg tablet, sublingual 2,500 mcg sublingual DAILY amlodipine 10 mg tablet 10 mg PO DAILY omeprazole 40 mg capsule,delayed release(DR/EC) 40 mg PO DAILY quetiapine 200 mg tablet 200 mg PO BEDTIME torsemide 10 mg tablet 10 mg PO DAILY clonazepam 1 mg tablet PO Referrals: Martin Navarro MD [Primary Care Provider] - Print Language: Korean
[2025-03-21 10:50] LABS: MANUAL DIFF FLAG NO
[2025-03-21 10:51] LABS: Basophils Absolute Auto 0.1 X10*3/uL (0.0-0.2); Basophils Percent Auto 0.8 % (0-2); Eosinophils Absolute Auto 0.1 X10*3/uL (0.0-0.4); Eosinophils Percent Auto 1.3 % (0-4); Hematocrit 39.3 % (37.0-47.0); Hemoglobin 13.6 g/dl (12.0-16.0); Imm Gran Abs Auto 0.02 X10*3/uL (0.00-0.03); Imm Gran Pct Auto 0.3 % (0.0-0.4); Lymphocytes Absolute Auto 2.4 X10*3/uL (1.2-4.9); Mean Corpuscular HGB Conc 34.6 g/dl (31.0-35.0); Mean Corpuscular Volume 86.8 fL (80.0-98.0); Mean Platelet Volume 11.6 fL (9.4-12.3); Monocytes Absolute Auto 0.4 X10*3/uL (0.1-1.2); Monocytes Percent Auto 5.5 % (2-11); Neutrophils Absolute Auto 3.4 x10*3/uL (2.0-8.3); Neutrophils Percent Auto 54.1 % (45-73); Platelet Count 303 X10*3/uL (160-400); Red Blood Count 4.53 X10*6/uL (4.20-5.50); Red Cell Distribution Width 13.5 % (11.0-16.0); White Blood Count 6.3 X10*3/uL (4.8-10.8)
[2025-03-21 11:19] LABS: Alanine Aminotransferase 22 U/L (0-31); Albumin Level 4.3 g/dL (3.5-5.0); Anion Gap 13 (12-20); Aspartate Amino Transferase 35 U/L (5-31); Bilirubin Direct 0.1 mg/dL (0.0-0.5); Bilirubin Total 0.3 mg/dL (0.0-1.0); Blood Urea Nitrogen 9 mg/dL (9-16); Calcium 9.5 mg/dL (8.4-10.2); Carbon Dioxide 23 mmol/L (22-29); Chloride 110 mmol/L (96-108); Estimated Glomerular Filt Rate 60; Ethanol < 10 mg/dL; Glucose Random 96 mg/dL (60-115); Sodium 143 mmol/L (135-145); Total Protein 7.6 g/dL (6.5-8.0)
[2025-03-21 11:27] LABS: Troponin-I High Sensitivity < 2.7 ng/L (<3.5-17.0)
[2025-03-21] MEDS: Lactated Ringers 1,000 ML 999 ML IV (11:39)
[2025-03-21] MEDS: Potassium Chloride ER 20 MEQ TAB.ER.PRT 40 MEQ PO ×2 (11:39→13:55)
[2025-03-21 12:52] LABS: Alkaline Phosphatase 121 U/L (39-117)
[2025-03-21 13:02] LABS: Appearance Urine Cloudy; Color Urine Yellow; Glucose Urine UA Negative (Negative); Leukocyte Esterase Urine Trace (Negative); Nitrite Urine Positive (Negative); PH 6.5 (5.0-9.0); UMIC TRIGGER UACC YES; Urine Blood Negative (Negative); Urine Ketones Negative (Negative); Urine Protein Negative (Neg-Trace)
[2025-03-21 13:03] VITALS: BP 160/91; PULSE 83
[2025-03-21 13:04] VITALS: BP 151/87; BP 157/87; PULSE 82; PULSE 84
[2025-03-21 13:14] LABS: Amphetamine Screen Urine Not Detected (Not Detect); Barbiturates, Urine Not Detected (Not Detect); Benzodiazepines Screen Urine Not Detected (Not Detect); Buprenorphine Scr Not Detected (Not Detect); Cannabinoid Screen Urine Not Detected (Not Detect); Cocaine Screen Urine Not Detected (Not Detect); Fentanyl, urine Not Detected (Not Detect); Methadone Screen, Urine Not Detected (Not Detect); Opiate Screen Urine Not Detected (Not Detect); Oxycodone Screen Urine Not Detected (Not Detect); Phencyclidine Screen Urine Not Detected (Not Detect)
[2025-03-21 13:31] LABS: Bacteria Urine 4+ (None Seen); Hyaline Casts Urine 0-2 /LPF (0-2); RBC Urine 0-2 /HPF (0-2); Squamous Epithelial Cell Urine >20 /HPF (0-2); UACC Culture Trigger YES
[2025-03-21 13:58] VITALS: BP 142/72; PULSE 78; RESP 18; TEMP 36.6; O2SAT 98
== END 2025-03-21 13:59 | disposition home or self-care (01) ==
PROVIDERS: Physician Assistant; Emergency Provider Emergency Medicine; PCP Internal Medicine
DX: R42 Dizziness and giddiness (principal); E87.6 Hypokalemia; N39.0 Urinary tract infection, site not specified; B96.20 Unspecified Escherichia coli [E. coli] as the cause of diseases classified elsewhere; I10 Essential (primary) hypertension; R29.700 NIHSS score 0; Z86.73 Personal history of transient ischemic attack (TIA), and cerebral infarction without residual deficits; Z86.718 Personal history of other venous thrombosis and embolism; Z79.82 Long term (current) use of aspirin; Z79.899 Other long term (current) drug therapy; Z79.01 Long term (current) use of anticoagulants
CPT/HCPCS: 36415; 70450; 80048; 80076; 80307; 81001; 81003; 83735; 84484; 85025; 87086; 87088; 87186; 93005; 96360; 96361; 99285; J7120

== ENCOUNTER → 2025-03-21 10:36 | Outpatient (BNV) | payer OTHER, SELFPAY | PROVIDERS: Emergency Provider Emergency Medicine; PCP Internal Medicine; Visit Provider Radiology Diagnostic Radiology | DX: R26.81 Unsteadiness on feet (principal); R42 Dizziness and giddiness | CPT/HCPCS: 70450 ==

== ENCOUNTER → 2025-03-21 10:36 | Outpatient (BNV) | payer OTHER, SELFPAY | PROVIDERS: Emergency Provider Emergency Medicine; PCP Internal Medicine; Visit Provider Internal Medicine Cardiovascular Disease | DX: I45.81 Long QT syndrome (principal) | CPT/HCPCS: 93010 ==